=== PATIENT | male | born 1950 | race American Indian/Alaskan Native ===

== ENCOUNTER 2017-01-12 13:08 | Emergency (ER) | payer OTHER, MEDICAID ==
--- NOTE | 2017-01-12 13:37 | EDPHY ---
H & P Time Seen by Provider: 01/12/17 13:23 HPI/ROS: HPI Cough, sinus pressure and sinus congestion. 66-year-old male, currently homeless, heavy smoker, history of sinus surgery, presents to the emergency department complaining of a cough, productive of a clear phlegm times 2-3 days, and maxillary sinus pressure, greater on the left than the right as well as a sore throat, worse with cough. He also complains of nasal congestion and rhinorrhea. No fever. Denies other complaints. ROS: Constitutional: No fever, no chills. No weakness. Eyes: No discharge. No changes in vision. ENT: As above. Respiratory: As above. No shortness of breath. Cardiac: No chest pain, no palpitations. Gastrointestinal: No abdominal pain, no vomiting, no diarrhea. Genitourinary: No hematuria. No dysuria or increased frequency with urination. Musculoskeletal: No back pain. No neck pain. No myalgias or arthralgias. Skin: No rashes. Neurological: No headache. No focal weakness or altered sensation. Past medical history: Heavy smoker. Bronchitis. Sinus surgery. Social history: As above. Here by himself. Physical Exam: General Appearance: Alert, no distress. This patient is responding to questions appropriately and in full sentences. This patient appears well- hydrated and well-nourished. No voice changes. Eyes: Pupils equal and round no pallor or injection. No lid edema, erythema or injection. ENT, Mouth: Mucous membranes are moist. Mild diffuse pharyngeal erythema. No edema or swelling. No asymmetry suggestive of abscess. No exudates. Some pressure and discomfort with palpation over the maxillary sinuses. No facial soft tissue swelling, erythema or warmth. No stridor on auscultation of his neck. Respiratory: There are no retractions, lungs are clear to auscultation with good air movement bilaterally. Intermittent wet sounding cough. No tachypnea. Cardiovascular: Regular rate and rhythm. No murmur. Neurological: Motor sensory function is grossly intact. Cranial nerves are normal. Gait is normal. Skin: Warm and dry, no rashes. Musculoskeletal: Neck is supple and nontender. No lymphadenopathy. Extremities are symmetrical. All joints range without pain or impingement. Psychiatric: No agitation. No depression. Database: EKG: Imaging: Chest x-ray PA and lateral; the cardiac mediastinal silhouette is unremarkable. No evidence of infiltrate or pneumothorax. Mild to moderate bronchitis. No acute cardiopulmonary disease process noted. Interpreted by me. Procedures: Emergency department course: Vital signs reviewed, chest x-ray obtained. 2:00 p.m., patient re-evaluated. Resting comfortably at this time. Watching TV. Results of chest x-ray discussed with him. Plan will be to prescribe him azithromycin. He was given 500 mg of this in the emergency department. This will cover both his bronchitis and his sinusitis for potential bacterial sources. He is to follow up with his primary care physician on Friday who is in this building. He stated he would be able to do this. Return to emergency department precautions were discussed with him. All of his questions were answered. He was discharged in good condition. Differential Diagnosis: The differential diagnosis on this patient includes but is not limited to bronchitis, sinusitis, viral upper respiratory infection. This represents a partial list of diagnoses considered. These considerations are based on history , physical exam, past history, reassessment and diagnostic testing. Smoking Status: Heavy smoker Constitutional: Initial Vital Signs Temperature (C) 37.2 C 01/12/17 13:35 Heart Rate 92 01/12/17 13:35 Respiratory Rate 18 01/12/17 13:35 Blood Pressure 157/93 H 01/12/17 13:35 O2 Sat (%) 90 L 01/12/17 13:35 O2 Delivery Mode Room Air Allergies/Adverse Reactions: No Known Allergies Allergy (Verified 01/12/17 13:33) Home Medications: Medication Instructions Recorded Nitroglycerin [Nitrostat 0.4 mg 0.4 mg SL PRN PRN 07/17/14 (RX)] Furosemide [Lasix] 20 mg PO BID #30 tab 10/21/15 AZITHROMYCIN [Z-PACK] 250 mg PO DAILY #6 tab 04/15/16 Albuterol Sulfate [PROVENTIL HFA] 6.7 gm IH Q4-6PRN PRN #1 hfa.aer.ad 04/15/16 Fluticasone Nasal [Flonase Nasal 1 sprays NASAL DAILY #1 mdi 04/15/16 [place] (RX)] levOFLOXACIN [levAQUIN (*)] 750 mg PO DAILY #5 tab 04/22/16 Azithromycin [Zithromax] 250 mg PO DAILY #6 tab 01/12/17 Medical Decision Making - Diagnostics Imaging Results: Imaging Impressions Chest X-Ray 01/12/17 13:25 Impression: Moderate bronchitis. No other findings for acute cardiopulmonary abnormality. Departure - Departure Disposition: Home, Routine, Self-Care Clinical Impression: Bronchitis, Sinusitis Condition: Good Instructions: Acute Bronchitis (ED), Sinusitis (ED) Additional Instructions: Read and follow provided instructions. Follow-up with your primary care physician as discussed on Friday for re- evaluation and to help you fill your prescription for azithromycin if needed. Take medication as prescribed through entire course of treatment. Albuterol meter dose inhaler: 1-2 puffs every 2-4 hours as needed for cough and shortness of breath. Return to the emergency department for worsening cough, difficulty breathing, fever or other serious concerns. Referrals: Eulalia Stevens MD [Primary Care Provider] - As per Instructions Prescriptions: Azithromycin [Zithromax] 250 mg PO DAILY #6 tab
[2017-01-12 13:39] VITALS: PULSE 92; RESP 18; TEMP 99; O2SAT 90
[2017-01-12] MEDS ORDERED: AZITHROMYCIN 250 MG TAB PO ONE ×2 (14:05→14:10)
[2017-01-12 18:29] VITALS: BP 150/92
== END 2017-01-12 16:08 | disposition home or self-care (01) ==
LOC: CIMAGING 13:08 → CED 16:08
DX: J20.9 Acute bronchitis, unspecified (principal); J32.9 Chronic sinusitis, unspecified; F17.200 Nicotine dependence, unspecified, uncomplicated
CPT/HCPCS: 71020-PO

== ENCOUNTER 2017-01-14 11:12 | Emergency (ER) | payer OTHER, MEDICAID ==
[2017-01-14 11:22] VITALS: BP 141/102; PULSE 85; RESP 16; TEMP 97.7; O2SAT 92
--- NOTE | 2017-01-14 11:39 | EDPHY ---
H & P Time Seen by Provider: 01/14/17 11:25 HPI/ROS: CHIEF COMPLAINT: "You should know what is wrong. Them pills ain't working" HISTORY OF PRESENT ILLNESS: Patient is a 66-year-old male who presents emergency department with ongoing cough. He was seen in the emergency department on 01/12/2017. He was diagnosed with bronchitis. He was given azithromycin. He states that antibiotics are not working. He continues to have a cough. It is productive of white sputum. He is not sure if he has had a fever. No chills. No chest pain. No nausea or vomiting. Patient is also concerned that he has a sinus infection. He describes sinus congestion. REVIEW OF SYSTEMS: My complete review of systems is negative except as mentioned in the HPI. Past Medical/Surgical History: Includes pneumonia, bronchitis, hypertension, acute AL, COPD, anxiety Past surgical history: Includes hernia repair, appendectomy, facial surgery, plastic surgery, Social history: The patient continues to smoke. Patient is homeless. Smoking Status: Heavy smoker Physical Exam: 36.5, 141/102, 85, 16, 92% on room air GENERAL: No acute distress, alert. HEENT: Eyes normal to inspection, normal pharynx, no signs of dehydration. NECK: No thyromegaly, no lymphadenopathy, supple. RESPIRATORY: Coarse breath sounds bilaterally. No rales or rhonchi. No wheezing. No accessory muscle use. CVS: Regular rate and rhythm, no rubs, murmurs, or gallops. ABDOMEN: Soft, nontender, nondistended, no organomegaly. BACK: Normal to inspection, no CVA tenderness. SKIN: [place]. No rash, warm, dry. No pallor. EXTREMITIES: No pedal edema, no calf tenderness, no Homans sign or cords, no joint swelling. NEURO/PSYCH: Alert and oriented, normal mood and affect, normal motor sensory exam. Constitutional: Initial Vital Signs Temperature (C) 36.5 C 01/14/17 11:15 Heart Rate 85 01/14/17 11:15 Respiratory Rate 16 01/14/17 11:15 Blood Pressure 141/102 H 01/14/17 11:15 O2 Sat (%) 92 01/14/17 11:15 O2 Delivery Mode Room Air Allergies/Adverse Reactions: No Known Allergies Allergy (Verified 01/14/17 11:15) Home Medications: Medication Instructions Recorded Nitroglycerin [Nitrostat 0.4 mg 0.4 mg SL PRN PRN 07/17/14 (RX)] Furosemide [Lasix] 20 mg PO BID #30 tab 10/21/15 AZITHROMYCIN [Z-PACK] 250 mg PO DAILY #6 tab 04/15/16 Albuterol Sulfate [PROVENTIL HFA] 6.7 gm IH Q4-6PRN PRN #1 hfa.aer.ad 04/15/16 Fluticasone Nasal [Flonase Nasal 1 sprays NASAL DAILY #1 mdi 04/15/16 [place] (RX)] Azithromycin [Zithromax] 250 mg PO DAILY #6 tab 01/12/17 Amoxicillin/Clavulanate Pot 875 mg PO BID 10 Days 01/14/17 [Augmentin 875 mg tab] predniSONE 20 mg PO DAILY 4 Days 01/14/17 Medical Decision Making - Diagnostics Imaging Results: Imaging Impressions Chest X-Ray 01/14/17 11:33 Impression: Progressive prominence of central pulmonary vessels suggesting acute congestive failure.. ED Course/Re-evaluation: I discussed the plan with the patient. I answered all his questions. He will have a repeat chest x-ray. Chest x-ray: Please refer the dictated report by Dr. Price. He reviewed noted there is mild increased vascular is a sutton potentially representing CHF. The patient has no pedal edema no signs of fluid overload on exam. He has had no chest pain. I discussed the result with the patient. Patient will be given a prescription for prednisone, albuterol and Augmentin. Prior to leaving he was given a dose of Augmentin and prednisone 60 mg orally. He was given albuterol inhaler. Differential Diagnosis: My differential includes but is not limited to bronchitis, sinusitis, pneumonia , empyema, COPD exacerbation, ACS bacteremia, sepsis Departure - Departure Disposition: Home, Routine, Self-Care Clinical Impression: Chronic obstructive pulmonary disease with acute exacerbation Acute bronchitis Qualifiers: Bronchitis organism: other organism Qualified Code(s): J20.8 - Acute bronchitis due to other specified organisms Condition: Good Instructions: Acute Bronchitis (ED), COPD (Chronic Obstructive Pulmonary Disease) (ED) Additional Instructions: Return with increasing shortness of breath, cough, fever or any other concerns. Take your entire course of antibiotics. Referrals: [facility] [Cl[facility]] - 2-3 days, if not improved Christ Stein MD [Medical Doctor] - 5-7 days, if not improved Prescriptions: Amoxicillin/Clavulanate Pot [Augmentin 875 mg tab] 875 mg PO BID 10 Days predniSONE 20 mg PO DAILY 4 Days
[2017-01-14] MEDS ORDERED: AMOXICILLIN/CLAVULANATE POT 875/125 MG TAB PO ONE (11:52)
[2017-01-14] MEDS ORDERED: predniSONE 20 MG TAB PO ONE (11:53)
== END 2017-01-14 12:07 | disposition home or self-care (01) ==
LOC: CED 11:12
DX: J44.1 Chronic obstructive pulmonary disease with (acute) exacerbation (principal); F17.200 Nicotine dependence, unspecified, uncomplicated; I10 Essential (primary) hypertension; I25.2 Old myocardial infarction; J20.8 Acute bronchitis due to other specified organisms
CPT/HCPCS: 71020-PO

== ENCOUNTER → 2017-01-30 | Outpatient (CLI) | payer OTHER, MEDICAID | LOC: CIMAGING 10:15 | PROVIDERS: ATTEND Internal Medicine | DX: J32.8 Other chronic sinusitis (principal); Z98.890 Other specified postprocedural states | CPT/HCPCS: 70450-PO ==

== ENCOUNTER → 2017-03-07 | Outpatient (CLI) | payer OTHER, MEDICAID | LOC: BHCLAF 10:45 | PROVIDERS: ATTEND Internal Medicine Cardiovascular Disease | DX: R01.1 Cardiac murmur, unspecified (principal); I50.9 Heart failure, unspecified | CPT/HCPCS: 93306-PO ==

== ENCOUNTER 2017-05-21 06:17 | Inpatient (IN) | payer OTHER, MEDICAID ==
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
--- NOTE | 2017-05-21 07:23 | CPEKG ---
Heart Rate: 91 RR Interval: 659 P-R Interval: 144 QRSD Interval: 106 QT Interval: 400 QTC Interval: 493 P [place]: 73 QRS [place]: 55 T Wave [place]: -78 EKG Severity - ABNORMAL ECG - EKG Impression: SINUS RHYTHM EKG Impression: MULTIFORM VENTRICULAR PREMATURE COMPLEXES EKG Impression: BIATRIAL ABNORMALITY EKG Impression: BORDERLINE PROLONGED QT INTERVAL EKG Impression: No significant change from October 20, 2015 EKG Impression: Diffuse ST-T wave abnormalities EKG Impression: Incomplete left bundle branch block Electronically Signed By: Christ Gonzalez 23-May-2017 10:51:12
--- NOTE | 2017-05-21 07:23 | CPEKG ---
Heart Rate: 91 RR Interval: 659 P-R Interval: 144 QRSD Interval: 106 QT Interval: 400 QTC Interval: 493 P [place]: 73 QRS [place]: 55 T Wave [place]: -78 EKG Severity - ABNORMAL ECG - EKG Impression: SINUS RHYTHM EKG Impression: MULTIFORM VENTRICULAR PREMATURE COMPLEXES EKG Impression: BIATRIAL ABNORMALITY EKG Impression: BORDERLINE PROLONGED QT INTERVAL EKG Impression: No significant change from October 20, 2015 EKG Impression: Diffuse ST-T wave abnormalities EKG Impression: Incomplete left bundle branch block Electronically Signed By: Christ Gonzalez 23-May-2017 10:51:12
[2017-05-21 07:40] LABS: PLATELET COUNT 203 10^3/uL (150-400)
[2017-05-21] MEDS ORDERED: ASPIRIN 81 MG CHEWABLE TAB PO ONE (08:33)
[2017-05-21] MEDS ORDERED: ALBUTEROL 3 ML DEYVIAL IH PRN (13:02)
[2017-05-21] MEDS ORDERED: LORazepam 0.5 MG TAB PO PRN (13:02)
[2017-05-21] MEDS ORDERED: LORazepam 2 MG/ML INJ IVP PRN (13:02)
[2017-05-21] MEDS ORDERED: ACETAMINOPHEN 325 MG TAB PO PRN (13:02)
[2017-05-21] MEDS ORDERED: METOCLOPRAMIDE 10 MG TAB PO PRN (13:02)
[2017-05-21] MEDS ORDERED: HYDROCODONE/APAP 5/325 TAB PO PRN (13:02)
[2017-05-21] MEDS ORDERED: METOCLOPRAMIDE 10 MG/2 ML VIAL IVP PRN (13:02)
[2017-05-21] MEDS ORDERED: FUROSEMIDE 40 MG/4 ML VIAL IVP ONE (13:05)
--- NOTE | 2017-05-21 13:30 | PDGENHP ---
History and Physical - Chief Complaint SOB - History of Present Illness 67 yo male p/w Dyspnea and orthopnea x 4 days. Has a hx of CAD, COPD, ?CHF, chronic ETOH. No CP. NO palpitations. NO fever. No cough. NO sputum. No leg swelling. He tooks Lasix yesterday with mild improvement. He does not use supplemental O2 at baseline. CXR shows pulm vascular congestion (personally reviewed) Trop slightly elevated BNP elevated EKG personally reviewed with no acute ischemic changes PMHx: COPD, ?CHF, alcoholism, Anxiety, HTN PmHx: hernia repair Soc Hx: daily Tobacco use, daily ETOH use, daily marijuana use. Lives in a VAN History Information - Allergies/Home Medication List Allergies/Adverse Reactions: No Known Allergies Allergy (Verified 01/14/17 11:15) Home Medications: Nitroglycerin [Nitrostat 0.4 mg (RX)] 0.4 mg SL PRN PRN 07/17/14 [Last Taken Unknown] Sleeping Tablet 05/21/17 [Last Taken Unknown] I have personally reviewed and updated: family history, medical history - Social History Smoking Status: Heavy smoker Alcohol Use: None Drug Use: None Review of Systems Review of Systems: ROS: 10pt was reviewed & negative except for what was stated in HPI & below Physical Exam Physical Exam: Temp Pulse Resp BP Pulse Ox 36.6 C 99 99 H 138/99 H 95 05/21/17 11:48 05/21/17 12:34 05/21/17 12:34 05/21/17 12:34 05/21/17 12:34 O2 (L/minute) 2 Constitutional: no apparent distress, appears nourished Eyes: PERRL, EOMI Ears, Nose, Mouth, Throat: moist mucous membranes Cardiovascular: regular rate and rhythym, edema (trace), No JVD Respiratory: inspiratory crackles Gastrointestinal: normoactive bowel sounds, soft, non-tender abdomen Skin: warm Neurologic: AAOx3, CN II-XII Intact Psychiatric: interacting appropriately, not anxious, not encephalopathic, thought process linear Lab Data & Imaging Review 05/21/17 07:30 05/21/17 07:30 WBC 8.13 10^3/uL (3.80-9.50) 05/21/17 07:30 RBC 5.48 10^6/uL (4.40-6.38) 05/21/17 07:30 Hgb 17.6 g/dL (13.7-17.5) H 05/21/17 07:30 Hct 51.8 % (40.0-51.0) H 05/21/17 07:30 MCV 94.5 fL (81.5-99.8) 05/21/17 07:30 MCH 32.1 pg (27.9-34.1) 05/21/17 07:30 MCHC 34.0 g/dL (32.4-36.7) 05/21/17 07:30 RDW 13.4 % (11.5-15.2) 05/21/17 07:30 Plt Count 203 10^3/uL (150-400) 05/21/17 07:30 MPV 10.1 fL (8.7-11.7) 05/21/17 07:30 Neut % (Auto) 66.3 % (39.3-74.2) 05/21/17 07:30 Lymph % (Auto) 22.0 % (15.0-45.0) 05/21/17 07:30 [place] % (Auto) 9.0 % (4.5-13.0) 05/21/17 07:30 Eos % (Auto) 2.0 % (0.6-7.6) 05/21/17 07:30 Baso % (Auto) 0.5 % (0.3-1.7) 05/21/17 07:30 Nucleat RBC Rel Count 0.0 % (0.0-0.2) 05/21/17 07:30 Absolute Neuts (auto) 5.39 10^3/uL (1.70-6.50) 05/21/17 07:30 Absolute Lymphs (auto) 1.79 10^3/uL (1.00-3.00) 05/21/17 07:30 Absolute Monos (auto) 0.73 10^3/uL (0.30-0.80) 05/21/17 07:30 Absolute Eos (auto) 0.16 10^3/uL (0.03-0.40) 05/21/17 07:30 Absolute Basos (auto) 0.04 10^3/uL (0.02-0.10) 05/21/17 07:30 Absolute Nucleated RBC 0.00 10^3/uL (0-0.01) 05/21/17 07:30 Immature Gran % 0.2 % (0.0-1.1) 05/21/17 07:30 Immature Gran # 0.02 10^3/uL (0.00-0.10) 05/21/17 07:30 Sodium 143 mEq/L (134-144) 05/21/17 07:30 Potassium 3.7 mEq/L (3.5-5.2) 05/21/17 07:30 Chloride 102 mEq/L (97-110) 05/21/17 07:30 Carbon Dioxide 30 mEq/l (22-31) 05/21/17 07:30 Anion Gap 11 mEq/L (8-16) 05/21/17 07:30 BUN 17 mg/dL (7-23) 05/21/17 07:30 Creatinine 1.1 mg/dL (0.7-1.3) 05/21/17 07:30 Estimated GFR > 60 05/21/17 07:30 Glucose 101 mg/dL (70-100) H 05/21/17 07:30 Calcium 9.3 mg/dL (8.5-10.4) 05/21/17 07:30 Magnesium 1.7 mg/dL (1.6-2.3) 05/21/17 07:30 Total Bilirubin 1.6 mg/dL (0.1-1.4) H 05/21/17 07:30 Conjugated Bilirubin 0.5 mg/dL (0.0-0.5) 05/21/17 07:30 Unconjugated Bilirubin 1.1 mg/dL (0.0-1.1) 05/21/17 07:30 AST 22 IU/L (17-59) 05/21/17 07:30 ALT 33 IU/L (21-72) 05/21/17 07:30 Alkaline Phosphatase 58 IU/L (38-126) 05/21/17 07:30 Troponin I 0.057 ng/mL (0.000-0.034) H 05/21/17 07:30 NT-Pro-B Natriuret Pep 2220 pg/mL (0-125) H 05/21/17 07:30 Total Protein 6.5 g/dL (6.3-8.2) 05/21/17 07:30 Albumin 4.0 g/dL (3.5-5.0) 05/21/17 07:30 Assessment & Plan Assessment: #CHF exacerbation, unclear if systolic vs diastolic #Dyspnea #Elevated troponin, EKG with no acute changes #COPD, likely not in exacerbation #Alcoholism, last drink 4 days ago, not in active WD #Prolonged QT. Plan: -Admit observation -Lasix -serial trop -TTE -EKG in a.m. -aspirin -check influenza (he has not been vaccinated) -home meds once home med list is available -PT/OT -SCD for DVT proph -Full Code
[2017-05-21] MEDS: THIAMINE HCL 100 MG TAB PO SCH (13:50)
[2017-05-21] MEDS: FOLIC ACID 1 MG TAB PO SCH (13:50)
--- NOTE | 2017-05-21 16:14 | ECHO ---
[email or web address] [address] [address] Main: [phone] Fax: Transthoracic Echocardiogram Name: TONIO LINK MR#: [id number] Study Date: 05/21/2017 Study Time: 02:16 PM Date of : 1950 Age: 67 year(s) Height: 182.9 cm (72 in.) Weight: 84.37 kg (186 lb.) BSA: 2.07 m2 Gender: Male Examination: Echo Indication: Question CHF/old [place], previous echo done at [facility] 03-13 Image Quality: Contrast: Requested by: Everett Edward BP: 138 mmHg/99 mmHg Heart Rate: Rhythm: Indication: Question CHF/old [place], previous echo done at [facility] 03-13 Procedure Staff [employer] Operation: Thu Carey Reading Physician: Raymond Zhao Requesting Provider: Conclusions: Mildly reduced systolic LV function. The ejection fraction is estimated to be 40-45 %. LV basal inferolateral, inferoseptal and entire inferior martinez are akinetic.. The left atrium is moderately to severely dilated. The right atrium is borderline dilated. Mild mitral annular calcification. Mild mitral valve leaflet calcification is present. Moderate to severe mitral regurgitation. Mild tricuspid regurgitation is present. RVSP is 58-63mmHG.. In comparison to prior echocardiogram from 03-07-17 there was moderate mitral regurgitation noted and mild tricuspid regurgitation. This study has some progression of the mitral valve pathology. Recommendations for patient to be seen by cardiology given the degree of progressive pathology noted. Measurements: Chambers Valvular Assessment AV/MV Valvular Assessment TV/PV Normal Normal Normal Name Value Range Name Value Range Name Value Range IVSd (2D): 1.0 cm (0.6 cm-1.1 AV meanP mmHg ( - ) TR Vmax: 3.63 mm/s ( - ) cm) AMARA (VTI): 2.1 cm ( - ) TR PGmax: 53 mmHg ( - ) LVDd (2D): 5.4 cm (4.2 cm-5.9 MV meanP mmHg ( - ) syst. PAP: 63 mmHg ( - ) cm) MVA (Vmax): 1.1 m/s ( - ) LVDs (2D): 3.9 cm (2.1 cm-4 cm) LVPWd (2D): 0.9 cm (0.6 cm-1 cm) LVOTd 2.0 cm 2.0 cm mm LVEF (MOD4): 45 % (>=55 %) Patient: TONIO LINK Study Date: 05/21/2017 Page 1 of 2 02:16 PM EF Range: 40-45 % Continued Measurements: Chambers Valvular Assessment AV/MV Valvular Assessment TV/PV Name Value Name Value Name Value LADs: 4.8 cm MV Annulus: 3.2 cm CVP (est.): 10 mmHg LADs Lon.3 cm MV VTI: 31.40 cm LA Area: 30.0 cm2 MR Vena Contracta: 0.7 cm MR ERO: 0.350 cm2 MR PISA radius: 8 mm MR Reg. Volume: 36 ml MR Reg. Fraction: 14 % Findings: Left Ventricle: Normal size left ventricle. Mildly reduced systolic LV function. The ejection fraction is estimated to be 40-45 %. LV basal inferolateral, inferoseptal and entire inferior martinez are akinetic.. Right Ventricle: Normal size right ventricle. Left Atrium: The left atrium is moderately to severely dilated. Right Atrium: The right atrium is borderline dilated. Mitral Valve: Mild mitral annular calcification. Mild mitral valve leaflet calcification is present. Moderate to severe mitral regurgitation. Mitral valve leaflets appear to be coapt completely.. Aortic Valve: There is no aortic valve regurgitation. The aortic valve opens well.. Tricuspid Valve: The tricuspid valve appears normal. Mild tricuspid regurgitation is present. The pulmonary artery pressure is mildly increased. RVSP is 58-63mmHG.. Pulmonic Valve: Pulmonary valve not well visualized. There is no pulmonic regurgitation seen. Pericardium: No pericardial effusion. (No Signature Object) Patient: TONIO LINK Study Date: 05/21/2017 Page 2 of 2 02:16 PM [id number]
--- NOTE | 2017-05-21 16:14 | ECHO ---
[email or web address] [address] [address] Main: [phone] Fax: Transthoracic Echocardiogram Name: TONIO LINK MR#: [id number] Study Date: 05/21/2017 Study Time: 02:16 PM Date of : 1950 Age: 67 year(s) Height: 182.9 cm (72 in.) Weight: 84.37 kg (186 lb.) BSA: 2.07 m2 Gender: Male Examination: Echo Indication: Question CHF/old [place], previous echo done at [facility] 03-13 Image Quality: Contrast: Requested by: Everett Edward BP: 138 mmHg/99 mmHg Heart Rate: Rhythm: Indication: Question CHF/old [place], previous echo done at [facility] 03-13 Procedure Staff [employer] Instructor: Thu Carey Reading Physician: Raymond Zhao Requesting Provider: Conclusions: Mildly reduced systolic LV function. The ejection fraction is estimated to be 40-45 %. LV basal inferolateral, inferoseptal and entire inferior martinez are akinetic.. The left atrium is moderately to severely dilated. The right atrium is borderline dilated. Mild mitral annular calcification. Mild mitral valve leaflet calcification is present. Moderate to severe mitral regurgitation. Mild tricuspid regurgitation is present. RVSP is 58-63mmHG.. In comparison to prior echocardiogram from 03-07-17 there was moderate mitral regurgitation noted and mild tricuspid regurgitation. This study has some progression of the mitral valve pathology. Recommendations for patient to be seen by cardiology given the degree of progressive pathology noted. Measurements: Chambers Valvular Assessment AV/MV Valvular Assessment TV/PV Normal Normal Normal Name Value Range Name Value Range Name Value Range IVSd (2D): 1.0 cm (0.6 cm-1.1 AV meanP mmHg ( - ) TR Vmax: 3.63 mm/s ( - ) cm) AMARA (VTI): 2.1 cm ( - ) TR PGmax: 53 mmHg ( - ) LVDd (2D): 5.4 cm (4.2 cm-5.9 MV meanP mmHg ( - ) syst. PAP: 63 mmHg ( - ) cm) MVA (Vmax): 1.1 m/s ( - ) LVDs (2D): 3.9 cm (2.1 cm-4 cm) LVPWd (2D): 0.9 cm (0.6 cm-1 cm) LVOTd 2.0 cm 2.0 cm mm LVEF (MOD4): 45 % (>=55 %) Patient: TONIO LINK Study Date: 05/21/2017 Page 1 of 2 02:16 PM EF Range: 40-45 % Continued Measurements: Chambers Valvular Assessment AV/MV Valvular Assessment TV/PV Name Value Name Value Name Value LADs: 4.8 cm MV Annulus: 3.2 cm CVP (est.): 10 mmHg LADs Lon.3 cm MV VTI: 31.40 cm LA Area: 30.0 cm2 MR Vena Contracta: 0.7 cm MR ERO: 0.350 cm2 MR PISA radius: 8 mm MR Reg. Volume: 36 ml MR Reg. Fraction: 14 % Findings: Left Ventricle: Normal size left ventricle. Mildly reduced systolic LV function. The ejection fraction is estimated to be 40-45 %. LV basal inferolateral, inferoseptal and entire inferior martinez are akinetic.. Right Ventricle: Normal size right ventricle. Left Atrium: The left atrium is moderately to severely dilated. Right Atrium: The right atrium is borderline dilated. Mitral Valve: Mild mitral annular calcification. Mild mitral valve leaflet calcification is present. Moderate to severe mitral regurgitation. Mitral valve leaflets appear to be coapt completely.. Aortic Valve: There is no aortic valve regurgitation. The aortic valve opens well.. Tricuspid Valve: The tricuspid valve appears normal. Mild tricuspid regurgitation is present. The pulmonary artery pressure is mildly increased. RVSP is 58-63mmHG.. Pulmonic Valve: Pulmonary valve not well visualized. There is no pulmonic regurgitation seen. Pericardium: No pericardial effusion. (No Signature Object) Patient: TONIO LINK Study Date: 05/21/2017 Page 2 of 2 02:16 PM [id number]
--- NOTE | 2017-05-21 16:14 | ECHO ---
[email or web address] [address] [address] Main: [phone] Fax: Transthoracic Echocardiogram Name: TONIO LINK MR#: [id number] Study Date: 05/21/2017 Study Time: 02:16 PM Date of : 1950 Age: 67 year(s) Height: 182.9 cm (72 in.) Weight: 84.37 kg (186 lb.) BSA: 2.07 m2 Gender: Male Examination: Echo Indication: Question CHF/old [place], previous echo done at [facility] 03-13 Image Quality: Contrast: Requested by: Everett Edward BP: 138 mmHg/99 mmHg Heart Rate: Rhythm: Indication: Question CHF/old [place], previous echo done at [facility] 03-13 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 The ejection fraction is estimated to be 40-45 %. LV basal inferolateral, inferoseptal and entire inferior martinez are akinetic.. The left atrium is moderately to severely dilated. The right atrium is borderline dilated. Mild mitral annular calcification. Mild mitral valve leaflet calcification is present. Moderate to severe mitral regurgitation. Mild tricuspid regurgitation is present. RVSP is 58-63mmHG.. In comparison to prior echocardiogram from 03-07-17 there was moderate mitral regurgitation noted and mild tricuspid regurgitation. This study has some progression of the mitral valve pathology. Recommendations for patient to be seen by cardiology given the degree of progressive pathology noted. Measurements: Chambers Valvular Assessment AV/MV Valvular Assessment TV/PV Normal Normal Normal Name Value Range Name Value Range Name Value Range IVSd (2D): 1.0 cm (0.6 cm-1.1 AV meanP mmHg ( - ) TR Vmax: 3.63 mm/s ( - ) cm) AMARA (VTI): 2.1 cm ( - ) TR PGmax: 53 mmHg ( - ) LVDd (2D): 5.4 cm (4.2 cm-5.9 MV meanP mmHg ( - ) syst. PAP: 63 mmHg ( - ) cm) MVA (Vmax): 1.1 m/s ( - ) LVDs (2D): 3.9 cm (2.1 cm-4 cm) LVPWd (2D): 0.9 cm (0.6 cm-1 cm) LVOTd 2.0 cm 2.0 cm mm LVEF (MOD4): 45 % (>=55 %) Patient: TONIO LINK Study Date: 05/21/2017 Page 1 of 2 02:16 PM EF Range: 40-45 % Continued Measurements: Chambers Valvular Assessment AV/MV Valvular Assessment TV/PV Name Value Name Value Name Value LADs: 4.8 cm MV Annulus: 3.2 cm CVP (est.): 10 mmHg LADs Lon.3 cm MV VTI: 31.40 cm LA Area: 30.0 cm2 MR Vena Contracta: 0.7 cm MR ERO: 0.350 cm2 MR PISA radius: 8 mm MR Reg. Volume: 36 ml MR Reg. Fraction: 14 % Findings: Left Ventricle: Normal size left ventricle. Mildly reduced systolic LV function. The ejection fraction is estimated to be 40-45 %. LV basal inferolateral, inferoseptal and entire inferior martinez are akinetic.. Right Ventricle: Normal size right ventricle. Left Atrium: The left atrium is moderately to severely dilated. Right Atrium: The right atrium is borderline dilated. Mitral Valve: Mild mitral annular calcification. Mild mitral valve leaflet calcification is present. Moderate to severe mitral regurgitation. Mitral valve leaflets appear to be coapt completely.. Aortic Valve: There is no aortic valve regurgitation. The aortic valve opens well.. Tricuspid Valve: The tricuspid valve appears normal. Mild tricuspid regurgitation is present. The pulmonary artery pressure is mildly increased. RVSP is 58-63mmHG.. Pulmonic Valve: Pulmonary valve not well visualized. There is no pulmonic regurgitation seen. Pericardium: No pericardial effusion. (No Signature Object) Patient: TONIO LINK Study Date: 05/21/2017 Page 2 of 2 02:16 PM [id number]
[2017-05-21] MEDS ORDERED: ASPIRIN 325 MG TAB PO PRN (18:17)
[2017-05-21] MEDS ORDERED: ALBUTEROL 200 PUFFS/18 GM MDI IH PRN (18:17)
[2017-05-21] MEDS ORDERED: NITROGLYCERIN 0.4 MG BTL SL PRN (18:17)
[2017-05-21] MEDS ORDERED: FUROSEMIDE 40 MG TAB PO SCH (21:00)
[2017-05-21] MEDS: NICOTINE 21 MG/24 HR PATCH TD PRN (21:38)
[2017-05-22] MEDS: ASPIRIN 81 MG CHEWABLE TAB PO SCH (07:44)
[2017-05-22] MEDS: THIAMINE HCL 100 MG TAB PO SCH (07:44)
[2017-05-22] MEDS: FOLIC ACID 1 MG TAB PO SCH (07:44)
[2017-05-22] MEDS: MULTIVITAMINS 1 EACH TAB PO SCH (07:44)
[2017-05-22] MEDS: LISINOPRIL 40 MG TAB PO SCH (07:44)
--- NOTE | 2017-05-22 09:09 | CPEKG ---
Heart Rate: 85 RR Interval: 706 P-R Interval: 142 QRSD Interval: 104 QT Interval: 380 QTC Interval: 452 P [place]: 83 QRS [place]: 86 T Wave [place]: -62 EKG Severity - ABNORMAL ECG - EKG Impression: SINUS ARRHYTHMIA-- New since May 21, 2017 EKG Impression: MULTIFORM VENTRICULAR PREMATURE COMPLEXES EKG Impression: BRIANA, CONSIDER BIATRIAL ABNORMALITIES EKG Impression: NONSPECIFIC REPOL ABNORMALITY, DIFFUSE LEADS EKG Impression: BORDERLINE PROLONGED QT INTERVAL Electronically Signed By: Christ Gonzalez 22-May-2017 09:32:35
[2017-05-22 09:28] LABS: PLATELET COUNT 190 10^3/uL (150-400)
[2017-05-22] MEDS ORDERED: PROTOCOL MAGNESIUM 1 DOSE IV PRN (10:46)
[2017-05-22] MEDS ORDERED: PROTOCOL POTASSIUM 1 DOSE MISC PRN (10:46)
--- NOTE | 2017-05-22 10:50 | HOSPPROG ---
Hospitalist Progress Note Assessment/Plan: 67 yo male with hx of CAD, CHF, and alcoholism admitted for CHF-E. Volume and resp status is better TTE c/w significant worsening of valve disease Trops mildly elevated Plan for Card eval today. Provide additional Lasix IV today #CHF-E, systolic #Valvular disease with progression #elevated troponin #chronic alcoholism, last drink 5 days ago, not actively withdrawin #hypokalemia, replace PRN. Will also provide additional at this time as he will get further Lasix now #tobacco abuse disorder: he does not want nicotine replacement. Tobacco cessation counseling provided. SCD's Full Code Subjective: Feels better, Less SOB. Orthopnea is better. No CP Objective: Vital Signs Temp Pulse Resp BP Pulse Ox 36.7 C 86 16 139/88 H 92 05/22/17 10:43 05/22/17 10:43 05/22/17 10:43 05/22/17 10:43 05/22/17 10:43 Laboratory Results 05/22/17 08:43 05/22/17 08:43 05/21/17 05/22/17 05/23/17 05:59 05:59 05:59 Intake Total 1200 Balance 1200 - Physical Exam Constitutional: no apparent distress, appears nourished Eyes: PERRL, EOMI Ears, Nose, Mouth, Throat: moist mucous membranes, hearing normal Cardiovascular: regular rate and rhythym Respiratory: reduced air movement Gastrointestinal: normoactive bowel sounds Skin: warm Musculoskeletal: full muscle strength Neurologic: AAOx3 Psychiatric: interacting appropriately, not anxious, not encephalopathic, No anxious ICD10 Worksheet Patient Problems: Problems Problem Status Onset Acute exacerbation of congestive heart failure Acute Dyspnea Acute Elevated troponin Acute Pulmonary vascular congestion Acute
[2017-05-22] MEDS ORDERED: FUROSEMIDE 20 MG/2 ML VIAL IVP ONE (10:52)
[2017-05-22] MEDS ORDERED: POTASSIUM CL 20 MEQ PKT PO SCH (11:00)
[2017-05-22] MEDS: POTASSIUM CL 20 MEQ PKT PO SCH ×3 (11:36→16:57)
--- NOTE | 2017-05-22 14:48 | PDCARCONS ---
Cardiology Consult Reason for Consult: Abnormal echocardiogram Chief Complaint: dyspnea with fluid retention Requesting Physician: Hospitalist crew History of Present Illness: Patient is a 67 y/o male with history of CAD s/p angioplasty (no stent, per patient), with residual ischaemic CMP (uncertain what LVEF was post events, but with most recent echocardiogram, there is reduction in systolic function noted) , HTN, HLP, COPD, and substance abuse (tobacco, alcohol, and MMJ), who presented to [facility] with complaints of progressive shortness of breath and lower extremity swelling. ER note with patient voicing concerns about pneumonia and bronchitis. Hospitalist note with evolution in the symptoms reported ( clarification), and signs and symptoms more in the realm of congestive heart failure. No regular or routine cardiovascular follow up has been maintained. Patient is currently living out of his van. PCP with recent script for diuretics, which seemed to help with some of the symptoms noted. Dramatic improvement was only noted after admission to [facility] and more frequent diuretics were dosed. Today, the patient reports that he is feeling much better. No chest pains or pressure. No PND or orthopnea. Echocardiogram was performed, and given the abnormalities noted, this led to the cardiology consultation (the results are as noted below). Remainder of a 12 point review of systems was unremarkable History Information - Allergies/Home Medication List Allergies/Adverse Reactions: No Known Allergies Allergy (Verified 01/14/17 11:15) Home Medications: Nitroglycerin [Nitrostat 0.4 mg (RX)] 0.4 mg SL PRN PRN 07/17/14 [Last Taken Unknown] Albuterol [Proventil Inhaler HFA (*)] 1 - 2 puffs IH DAILY PRN 05/21/17 [Last Taken Unknown] Aspirin [Aspirin 325 mg (*)] 325 mg PO DAILY PRN 05/21/17 [Last Taken Unknown] Aspirin [Aspirin 81mg (*)] 81 mg PO DAILY PRN 05/21/17 [Last Taken Unknown] Furosemide [Lasix 40 MG (*)] 40 - 80 mg PO HS 05/21/17 [Last Taken 05/20/17 80mg ] Herbals/Supplements -Info Only 1 ea PO DAILY 05/21/17 [Last Taken Unknown] Lisinopril [Zestril 40 mg (*)] 40 mg PO DAILY 05/21/17 [Last Taken 05/20/17] I have personally reviewed and updated: family history, medical history, social history, surgical history Past Medical History: - Past Medical History coronary artery disease, CHF, hypertension, hyperlipidemia, myocardial infarction - Surgical History Reports: no pertinent surgical hx - Family History Positive for: non-pertinent - Social History Smoking Status: Heavy smoker Alcohol Use: Occasionally Drug Use: Marijuana Cardiac History - Cardiac History Past Cardiac History: CAD Cardiac Risk Factors: hypertension (>140/90), lipidemia, current cigarette smoker, age > 65, male Timing/Duration: Days Severity: moderate Severity Scale: 5 Location: substernal, abdomen Activities at Onset: activity Modifying Factors: improves with: oxygen, rest Associated Symptoms: shortness of breath, weakness BLANCA Risk Evaluation age greater or equal to 65: yes greater or equal to 3 CAD risk factors: yes known CAD(stenosis greater or eqaul to 50%): yes ASA use in past 7 days: yes severe angina(greater or equal to 2 episodes in 24hrs): no EKG ST changes greater or equal to 0.5mm: no positive cardiac marker: yes Total Score: 5 BLANCA Score: 26.2% risk Physical Exam Physical Exam: Temp Pulse Resp BP Pulse Ox 36.7 C 86 16 139/88 H 92 05/22/17 10:43 05/22/17 10:43 05/22/17 10:43 05/22/17 10:43 05/22/17 10:43 O2 (L/minute) 2 Constitutional: no apparent distress, appears nourished, not in pain Eyes: PERRL Ears, Nose, Mouth, Throat: moist mucous membranes Cardiovascular: regular rate and rhythym, systolic murmur, No JVD Peripheral Pulses: 2+: dorsalis-pedis (R), dorsalis-pedis (L) Respiratory: no respiratory distress, reduced air movement Gastrointestinal: normoactive bowel sounds Skin: warm, normal color, No rash Musculoskeletal: full muscle strength Neurologic: AAOx3, sensation intact bilaterally, CN II-XII Intact Psychiatric: interacting appropriately, not anxious, not encephalopathic, poor judgement Lab and Imaging 05/22/17 08:43 05/22/17 08:43 WBC 6.84 10^3/uL (3.80-9.50) 05/22/17 08:43 RBC 5.20 10^6/uL (4.40-6.38) 05/22/17 08:43 Hgb 16.7 g/dL (13.7-17.5) 05/22/17 08:43 Hct 48.9 % (40.0-51.0) 05/22/17 08:43 MCV 94.0 fL (81.5-99.8) 05/22/17 08:43 MCH 32.1 pg (27.9-34.1) 05/22/17 08:43 MCHC 34.2 g/dL (32.4-36.7) 05/22/17 08:43 RDW 13.2 % (11.5-15.2) 05/22/17 08:43 Plt Count 190 10^3/uL (150-400) 05/22/17 08:43 MPV 11.6 fL (8.7-11.7) 05/22/17 08:43 Neut % (Auto) 64.6 % (39.3-74.2) 05/22/17 08:43 Lymph % (Auto) 24.9 % (15.0-45.0) 05/22/17 08:43 [place] % (Auto) 7.6 % (4.5-13.0) 05/22/17 08:43 Eos % (Auto) 2.2 % (0.6-7.6) 05/22/17 08:43 Baso % (Auto) 0.4 % (0.3-1.7) 05/22/17 08:43 Nucleat RBC Rel Count 0.0 % (0.0-0.2) 05/22/17 08:43 Absolute Neuts (auto) 4.42 10^3/uL (1.70-6.50) 05/22/17 08:43 Absolute Lymphs (auto) 1.70 10^3/uL (1.00-3.00) 05/22/17 08:43 Absolute Monos (auto) 0.52 10^3/uL (0.30-0.80) 05/22/17 08:43 Absolute Eos (auto) 0.15 10^3/uL (0.03-0.40) 05/22/17 08:43 Absolute Basos (auto) 0.03 10^3/uL (0.02-0.10) 05/22/17 08:43 Absolute Nucleated RBC 0.00 10^3/uL (0-0.01) 05/22/17 08:43 Immature Gran % 0.3 % (0.0-1.1) 05/22/17 08:43 Immature Gran # 0.02 10^3/uL (0.00-0.10) 05/22/17 08:43 Sodium 143 mEq/L (134-144) 05/22/17 08:43 Potassium 3.1 mEq/L (3.5-5.2) L 05/22/17 08:43 Chloride 100 mEq/L (97-110) 05/22/17 08:43 Carbon Dioxide 29 mEq/l (22-31) 05/22/17 08:43 Anion Gap 14 mEq/L (8-16) 05/22/17 08:43 BUN 17 mg/dL (7-23) 05/22/17 08:43 Creatinine 0.9 mg/dL (0.7-1.3) 05/22/17 08:43 Estimated GFR > 60 05/22/17 08:43 Glucose 163 mg/dL (70-100) H 05/22/17 08:43 Calcium 8.9 mg/dL (8.5-10.4) 05/22/17 08:43 Magnesium 1.7 mg/dL (1.6-2.3) 05/22/17 08:43 Total Bilirubin 1.6 mg/dL (0.1-1.4) H 05/21/17 07:30 Conjugated Bilirubin 0.5 mg/dL (0.0-0.5) 05/21/17 07:30 Unconjugated Bilirubin 1.1 mg/dL (0.0-1.1) 05/21/17 07:30 AST 22 IU/L (17-59) 05/21/17 07:30 ALT 33 IU/L (21-72) 05/21/17 07:30 Alkaline Phosphatase 58 IU/L (38-126) 05/21/17 07:30 Troponin I 0.049 ng/mL (0.000-0.034) H 05/21/17 21:15 NT-Pro-B Natriuret Pep 2220 pg/mL (0-125) H 05/21/17 07:30 Total Protein 6.5 g/dL (6.3-8.2) 05/21/17 07:30 Albumin 4.0 g/dL (3.5-5.0) 05/21/17 07:30 Specimen Hemolysis Cancelled 05/22/17 08:43 Visualized and Interpreted Chest x-ray results: Yes Chest X-ray Interpretation: other (CHF ) Visualized and Interpreted EKG results: Yes EKG Interpretation: Positive for: normal sinsus rhythm, other (PVC and PAC) Telemetry: normal sinus rhythm Echocardiogram: mild reduction in LVEF (40-45%) with inferolateral and inferoseptal hypokinesis noted. Moderate to severe MR. RVSP was estimated to be 55-65 mm Hg. A/P Assessment: Patient is a 67 y/o male with known history of CAD (no intervention was placed - 1994), COPD, HTN, HLP, CHF (reportedly by PCP note), who presented [place] [facility] with shortness of breath. Recommendations for patient to be admitted to [facility]. Echocardiogram was performed with abnormalities to both systolic function as well as progressive pathology to the mitral valve (from "moderate" in the past to more "moderate to severe" on current study). Slight elevation in troponin was noted. No cardiovascular complaints of chest pains or pressure, and after diuresis, the patient stating that he feels much better. Of concern is history of CAD without intervention in the remote past as well as the decreased ejection fraction (uncertain if this is a newer finding or old given the lack of follow up). Patient had bad experience with angiogram in the past, and has family/friends that had bad experience with open heart surgery. At present, the patient is not wanting to have any further cardiac testing at present. Plan: (1) Recommendations for patient to have angiogram - assessment of the CAD from prior as well as better understanding of the mitral valve pathology (2) Strong recommendations for complete smoking cessation - alcohol should be stopped - MMJ should also be stopped (3) Would continue therapy on ASA (81 mg per day) (4) Statins should be taken consistently - would have reassessment of cholesterol and LFTs after about 5 weeks of therapy (5) If the patient opts to leave given he is feeling better, would arrange for the patient to be seen in the outpatient setting within less than one week (6) The degree of valve pathology is of concern coupled with the knowledge of CAD from the remote past (7) Further concerns about the patient's social situation and follow up capability
[2017-05-22] MEDS: FUROSEMIDE 40 MG TAB PO SCH (15:05)
[2017-05-22] MEDS ORDERED: MAGNESIUM SULF 1 GM/DEXTROSE 100 ML IV ONE (16:00)
[2017-05-22] MEDS ORDERED: diphenhydrAMINE 25 MG CAP PO ONE (16:01)
[2017-05-22] MEDS ORDERED: DIAZEPAM 5 MG TAB PO ONE (16:01)
[2017-05-22] MEDS ORDERED: ASPIRIN EC 325 MG TAB PO ONE (16:01)
[2017-05-22] MEDS ORDERED: NITROGLYCERIN 0.4 MG BTL SL PRN (16:01)
[2017-05-22] MEDS ORDERED: FAMOTIDINE 20 MG TAB PO ONE (16:01)
[2017-05-22] MEDS ORDERED: ACETAMINOPHEN 325 MG TAB PO PRN (16:01)
[2017-05-22] MEDS ORDERED: TEMAZEPAM 15 MG CAP PO PRN (16:01)
[2017-05-22] MEDS ORDERED: NS 1,000 ML IV SCH (16:15)
--- NOTE | 2017-05-22 16:21 | ASMTCASEMG ---
Living Arrangements What is your living Answers: Alone arrangement? Who do you live with? Type Of Residence What kind of residence do Answers: Homeless you live in? Discharge Plan Comments Coordination Status Comments Notes: Pt is a 67 y/o man admitted w/ dyspnea, acute coronary syndromem and CHF. Pt lives out of his van. Pt chronically uses ETOH. CM met w/ pt for dispo planning. Pt reports that his declining health will be a good deterrent for him to stop drinking. Pt refused ETOH resources. PT is ordered and awaiting eval. Pt will most likely have an angiogram. CM available if there are d/c needs. Date Signed: 05/22/2017 04:21 PM Electronically Signed By:CAROLYNE Grubbs
[2017-05-22] MEDS: CARVEDILOL 3.125 MG TAB PO SCH (16:58)
--- NOTE | 2017-05-22 17:05 | PDMN ---
Medical Necessity Medical necessity: Change to IP, as of 05/22/17, per MD; los >2 mn for eval/tx of CAD, CHF, valvular disease w/progression, cardiac cath pending, hx htn, COPD ; per progress note 05/22/17
[2017-05-22] MEDS ORDERED: FUROSEMIDE 40 MG TAB PO SCH (21:00)
[2017-05-22] MEDS ORDERED: POTASSIUM CL 10 MEQ TAB PO ONE (21:52)
--- NOTE | 2017-05-23 08:45 | CPEKG ---
Heart Rate: 71 RR Interval: 845 P-R Interval: 144 QRSD Interval: 98 QT Interval: 412 QTC Interval: 448 P [place]: 68 QRS [place]: 50 T Wave [place]: -74 EKG Severity - ABNORMAL ECG - EKG Impression: SINUS RHYTHM EKG Impression: MULTIFORM VENTRICULAR PREMATURE COMPLEXES EKG Impression: PROBABLE LEFT ATRIAL ABNORMALITY EKG Impression: BORDERLINE T ABNORMALITIES, DIFFUSE LEADS EKG Impression: No significant change from May 22, 2017 EKG Impression: Incomplete left bundle branch block Electronically Signed By: Christ Gonzalez 23-May-2017 10:49:04
[2017-05-23 08:58] LABS: PLATELET COUNT 196 10^3/uL (150-400)
[2017-05-23 09:19] LABS: INR 1.06 (0.83-1.16); PROTIME(PATIENT) 13.7 SEC (12.0-15.0)
[2017-05-23] MEDS: LISINOPRIL 40 MG TAB PO SCH (09:58)
[2017-05-23] MEDS: CARVEDILOL 3.125 MG TAB PO SCH ×2 (09:59→17:16)
[2017-05-23] MEDS: ASPIRIN 81 MG CHEWABLE TAB PO SCH (09:59)
[2017-05-23] MEDS ORDERED: ASPIRIN EC 325 MG TAB PO ONE (10:00)
[2017-05-23] MEDS ORDERED: DIAZEPAM 5 MG TAB PO ONE (10:00)
[2017-05-23] MEDS ORDERED: FAMOTIDINE 20 MG TAB PO ONE (10:00)
[2017-05-23] MEDS ORDERED: diphenhydrAMINE 25 MG CAP PO ONE (10:15)
[2017-05-23] MEDS ORDERED: MIDAZOLAM 2 MG/2 ML VIAL ONE ×2 (10:38→13:57)
[2017-05-23] MEDS ORDERED: LIDOCAINE 1% 300 MG/30 ML SDV ONE (10:38)
[2017-05-23] MEDS ORDERED: fentaNYL 100 MCG/2 ML INJ ONE (10:38)
[2017-05-23] MEDS ORDERED: IOPAMIDOL (ISOVUE-370) 150 ML BTL IV ONE (10:39)
--- NOTE | 2017-05-23 10:41 | HOSPPROG ---
Hospitalist Progress Note Assessment/Plan: 67 yo male with hx of CAD, CHF, and alcoholism admitted for CHF-E. Volume and resp status is better TTE c/w significant worsening of valve disease Trops mildly elevated Plan for Cath per Card this morning Volume status is better and will decrease Lasix to once daily #CHF-E, systolic #Valvular disease with progression #elevated troponin #chronic alcoholism, not actively withdrawin #hypokalemia, replace PRN. #tobacco abuse disorder: nicotine replacement PRN SCD's Full Code Dispo: pending Cath Subjective: Ready for Cath today. No CP or SOB Objective: Vital Signs Temp Pulse Resp BP Pulse Ox 36.8 C 72 18 117/90 H 96 05/23/17 04:00 05/23/17 09:59 05/23/17 04:00 05/23/17 09:59 05/23/17 04:00 Laboratory Results 05/23/17 07:56 05/23/17 07:56 05/22/17 05/23/17 05/24/17 05:59 05:59 05:59 Intake Total 657 Output Total 725 Balance -68 PT 13.7 SEC (12.0-15.0) 05/23/17 09:05 INR 1.06 (0.83-1.16) 05/23/17 09:05 - Physical Exam Constitutional: no apparent distress Eyes: PERRL Ears, Nose, Mouth, Throat: moist mucous membranes, hearing normal Cardiovascular: regular rate and rhythym, No edema Respiratory: reduced air movement Gastrointestinal: normoactive bowel sounds Genitourinary: no bladder fullness Skin: warm Neurologic: AAOx3 Psychiatric: interacting appropriately, not anxious, not encephalopathic ICD10 Worksheet Patient Problems: Problems Problem Status Onset Acute exacerbation of congestive heart failure Acute Dyspnea Acute Elevated troponin Acute Pulmonary vascular congestion Acute chronic disease mgmt/transitional care Acute
[2017-05-23] MEDS ORDERED: VERAPAMIL 5 MG/2 ML VIAL ONE (12:26)
--- NOTE | 2017-05-23 13:54 | PDHPUP ---
History & Physical Update H&P update statement: This history and physical update is based on an assessment of the patient which was completed after admission or registration (within 24 hours), but prior to the surgery/procedure. H&P update: H&P reviewed & patient examined, no change in patient's condition since H&P completed
--- NOTE | 2017-05-23 13:55 | PDPROPOC ---
Sedation Plan of Care Sedation Plan of Care: vital signs stable, mental status noted, patient educated of risks, benefits, alternatives, patient can tolerate sedation ASA Classification: ASA 2 Planned drugs: fentanyl, midazolam Mallampati Score: Class 2 Mallampati Reference Image: Patient passed 3-3-2 rule?: Yes
--- NOTE | 2017-05-23 14:04 | PDDXCAT ---
Diagnostic Cath Note - . 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 LAD: Mild irregularities. LCX: Mid-circumflex with 40-50% stenosis; AV groove portion of circumflex 100% just after origin of principal OM branch; occluded AV groove circumflex receives [id number]-dw-ncyz collaterals supplying a long posterolateral branch. RCA: Proximal RCA with a 50% stenosis. EDP: 20 mmHg LVEF: 30% Wall motion: Global hypokinesis and inferior akinesis. - Findings-Right Heart Catheterization RA: 12 mmHg RV: 70/14 mmHg PA: 70/22/46 mmHg O2 sat 74.4% PAOP: 20 mmHg AO: 120/80/102 mmHg O2sat 98.2% CO: 4.71 L/min CI: 2.27 L/min/sq mtr Complications: None Estimated blood loss: <50ml Closure method: Angioseal Assessment: 1) Probable non-ischemic cardiomyopathy with severely reduced left ventricular systolic function. (The degree of LV systolic dysfunction is out of proportion to his CAD.) 2) Severe mitral regurgitation. 3) Coronary artery disease as described above. 4) Moderate to severe pulmonary hypertension. Plan: Recommend consultation with CT surgery to consider mitral valve repair/ replacement and CABG. Patient Problems: Problems Problem Status Onset Acute exacerbation of congestive heart failure Acute Dyspnea Acute Elevated troponin Acute Pulmonary vascular congestion Acute chronic disease mgmt/transitional care Acute
[2017-05-23] MEDS ORDERED: ONDANSETRON 4 MG/2 ML VIAL IVP PRN (14:15)
[2017-05-23] MEDS ORDERED: ATROPINE SULFATE 1 MG/10 ML SYR IVP PRN (14:15)
--- NOTE | 2017-05-23 16:00 | ASMTCMCOM ---
CM Note CM Note Notes: Pt had cath procedure today. Charleen from transitional care is following pt. Charleen scheduled pt w/ outpatient appointments found in the discharge section of [facility]. CM available should d/c needs arise. Date Signed: 05/23/2017 03:59 PM Electronically Signed By:CAROLYNE Grubbs
[2017-05-23] MEDS: FOLIC ACID 1 MG TAB PO SCH (16:05)
[2017-05-23] MEDS: THIAMINE HCL 100 MG TAB PO SCH (16:06)
[2017-05-23] MEDS: MULTIVITAMINS 1 EACH TAB PO SCH (16:06)
[2017-05-23] MEDS: FUROSEMIDE 40 MG TAB PO SCH ×2 (16:28→17:15)
[2017-05-24 04:39] LABS: PLATELET COUNT 182 10^3/uL (150-400)
[2017-05-24] MEDS ORDERED: MAGNESIUM SULF 1 GM/DEXTROSE 100 ML IV ONE (07:32)
[2017-05-24] MEDS: LISINOPRIL 40 MG TAB PO SCH (08:23)
[2017-05-24] MEDS: CARVEDILOL 3.125 MG TAB PO SCH ×2 (08:23→17:49)
[2017-05-24] MEDS: ASPIRIN 81 MG CHEWABLE TAB PO SCH (08:23)
[2017-05-24] MEDS: FOLIC ACID 1 MG TAB PO SCH (08:23)
[2017-05-24] MEDS: MULTIVITAMINS 1 EACH TAB PO SCH (08:23)
[2017-05-24] MEDS: FUROSEMIDE 40 MG TAB PO SCH (08:23)
[2017-05-24] MEDS: THIAMINE HCL 100 MG TAB PO SCH (08:24)
[2017-05-24] MEDS: SPIRONOLACTONE 25 MG TAB PO SCH (08:35)
[2017-05-24] MEDS: NICOTINE 21 MG/24 HR PATCH TD PRN (08:43)
--- NOTE | 2017-05-24 10:20 | SOAPPROG ---
RAUDEL Progress Note Assessment/Plan: Assessment: 67-year-old male with known coronary artery disease and previous myocardial infarction dating back to 1994 admitted now with symptoms of fatigue and findings suggesting congestive heart failure. Cardiac catheterization indicates an occluded collateralized circumflex. The myocardium subtended by this distribution appears to be akinetic. By echocardiography he has at least moderate mitral regurgitation and associated cardiomyopathy disproportionate to the degree of coronary disease. Presently, it appears that his mitral regurgitation is likely ischemic in nature related to a previous circumflex territory myocardial infarction. His decreased ejection fraction may be a result of significant mitral regurgitation or potentially excessive alcohol use. Today he appears to be fairly well compensated. Plan: 1. We will plan to continue aggressive medical therapy. 2. Today I have added Aldactone to his medications. 3. Will carefully follow his electrolytes and renal function. 4. He was recently started on Coreg. This can be adjusted and up titrated as an outpatient. 5. As an outpatient, his excessive alcohol use can be addressed. 6. Depending on his clinical course, we may consider referral to cardiothoracic surgery for consideration of mitral valve replacement and coronary artery bypass graft surgery. 05/24/17 10:20 Subjective: The patient was seen and examined. His chart was reviewed. I reviewed his previous echocardiogram and cardiac catheterization films. He was admitted with fatigue and findings that suggested congestive heart failure. Today, he appears to be well compensated and is feeling better. His cardiac catheterization demonstrated an occluded mid to distal circumflex. His echocardiogram demonstrated a substantial reduction in his ejection fraction associated with at least moderate mitral regurgitation. Wall motion abnormalities both on his ventriculogram and echocardiogram suggest akinesis in the distribution of the circumflex. Altogether, these findings suggest ischemic mitral regurgitation. Certainly, other possibilities are present including a cardiomyopathy related to his fairly excessive alcohol use. On telemetry he has been in sinus rhythm. No ventricular arrhythmias or episodes of atrial fibrillation or flutter have been identified. Objective: Vital Signs Temp Pulse Resp BP Pulse Ox 36.4 C 83 13 132/90 H 95 05/24/17 08:00 05/24/17 08:00 05/24/17 08:00 05/24/17 08:00 05/24/17 08:00 Laboratory Results 05/24/17 03:47 05/24/17 03:47 05/23/17 05/24/17 05/25/17 05:59 05:59 05:59 Intake Total 657 1400 Output Total 725 300 Balance -68 1100 PT 13.7 SEC (12.0-15.0) 05/23/17 09:05 INR 1.06 (0.83-1.16) 05/23/17 09:05 Physical Exam - Physical Exam General Appearance: WD/WN, no apparent distress Neck: non-tender, full range of motion Respiratory: lungs clear, No crackles, No rales, No rhonchi Cardiac/Chest: normal peripheral pulses, regular rate, rhythm, systolic murmur ( 3/6 holosystolic murmur appreciated radiating into the axilla), No edema, No gallop, No JVD Peripheral Pulses: 2+: carotid (R), carotid (L) Abdomen: non-tender, soft Rectal: deferred Neuro/Psych: alert, oriented x 3 ICD10 Worksheet Patient Problems: Problems Problem Status Onset Acute exacerbation of congestive heart failure Acute Dyspnea Acute Elevated troponin Acute Pulmonary vascular congestion Acute chronic disease mgmt/transitional care Acute
--- NOTE | 2017-05-24 10:58 | HOSPPROG ---
Hospitalist Progress Note Assessment/Plan: 67 yo male with hx of CAD, CHF, and alcoholism admitted for CHF-E. Volume and resp status is better TTE/CATH: ischemic mitral regurgitation, occluded mid to distal circumflex, akinesis in the distribution of the circumflex Cardiomyopathy disproportionate to the degree of CAD. Plan: -cont with current meds -Spironolactone started today -monitor overnight #CHF-E, systolic #Valvular disease with progression #elevated troponin #chronic alcoholism, not actively withdrawin #hypokalemia, replace PRN. #tobacco abuse disorder: nicotine replacement PRN SCD's Full Code Dispo: continue inpatient Subjective: feels bettter, no chest pain Objective: Vital Signs Temp Pulse Resp BP Pulse Ox 36.4 C 83 13 132/90 H 95 05/24/17 08:00 05/24/17 08:00 05/24/17 08:00 05/24/17 08:00 05/24/17 08:00 Laboratory Results 05/24/17 03:47 05/24/17 03:47 05/23/17 05/24/17 05/25/17 05:59 05:59 05:59 Intake Total 657 1400 Output Total 725 300 Balance -68 1100 PT 13.7 SEC (12.0-15.0) 05/23/17 09:05 INR 1.06 (0.83-1.16) 05/23/17 09:05 - Physical Exam Constitutional: no apparent distress Eyes: PERRL Ears, Nose, Mouth, Throat: moist mucous membranes Cardiovascular: regular rate and rhythym, No edema Respiratory: no respiratory distress Gastrointestinal: normoactive bowel sounds, soft, non-tender abdomen Skin: warm Musculoskeletal: full muscle strength Neurologic: AAOx3 Psychiatric: interacting appropriately, not anxious, not encephalopathic ICD10 Worksheet Patient Problems: Problems Problem Status Onset Acute exacerbation of congestive heart failure Acute Dyspnea Acute Elevated troponin Acute Pulmonary vascular congestion Acute chronic disease mgmt/transitional care Acute
--- NOTE | 2017-05-24 17:14 | ASMTCMCOM ---
CM Note CM Note Notes: RN states Pt. would like to speak with Yocasta today. Today Pt. states he needs to get in touch with his friends "Sabino Acevedo" and "Beni" to let them into his van so that he can get his phone and communicate with friends about potential heart surgery he will need. Pt has no contact information for them no does he know how to spell their names. Pt. does not want surgery until he can speak to his friends about it. Today Yocasta tried to locate his friends, but was unsuccessful. Pt. thinks he may leave AMA tomorrow if MD won't let him go get his van in [place] where his phone is. CM to follow. Date Signed: 05/24/2017 05:13 PM Electronically Signed By:Joanne Bullard LCSW
[2017-05-24] MEDS ORDERED: FUROSEMIDE 40 MG TAB PO ONE (21:16)
[2017-05-25] MEDS: LISINOPRIL 40 MG TAB PO SCH (09:33)
[2017-05-25] MEDS: CARVEDILOL 3.125 MG TAB PO SCH (09:33)
[2017-05-25] MEDS: SPIRONOLACTONE 25 MG TAB PO SCH (09:33)
[2017-05-25] MEDS: MULTIVITAMINS 1 EACH TAB PO SCH (09:34)
[2017-05-25] MEDS: ASPIRIN 81 MG CHEWABLE TAB PO SCH (09:34)
[2017-05-25] MEDS: THIAMINE HCL 100 MG TAB PO SCH (09:34)
[2017-05-25] MEDS: FOLIC ACID 1 MG TAB PO SCH (09:34)
[2017-05-25] MEDS: FUROSEMIDE 40 MG TAB PO SCH (09:34)
--- NOTE | 2017-05-25 10:16 | SOAPPROG ---
RAUDEL Progress Note Assessment/Plan: Assessment: 67-year-old male with known coronary artery disease and previous myocardial infarction dating back to 1994 admitted now with symptoms of fatigue and findings suggesting congestive heart failure. Cardiac catheterization indicates an occluded collateralized circumflex. The myocardium subtended by this distribution appears to be akinetic. By echocardiography he has at least moderate mitral regurgitation and associated cardiomyopathy disproportionate to the degree of coronary disease. Presently, it appears that his mitral regurgitation is likely ischemic in nature related to a previous circumflex territory myocardial infarction. His decreased ejection fraction may be a result of significant mitral regurgitation or potentially excessive alcohol use. Today he appears to be fairly well compensated. Plan: 1. He can be discharged today. 2. I have asked him to stop all ETOH intake. 3. He will cut down on smoking. 4. I will see him in the office in the next 1 to 2 weeks. 5. Will follow his MR and EF and social factors. 6. May consider MVR in the near future depending on clinical course. 05/25/17 10:14 Subjective: No complaints today. Wants to go home. Case discussed with CT surgery. Objective: Vital Signs Temp Pulse Resp BP Pulse Ox 36.3 C 85 10 L 142/104 H 95 05/25/17 07:37 05/25/17 07:37 05/25/17 07:37 05/25/17 07:37 05/25/17 07:37 Laboratory Results 05/24/17 03:47 05/25/17 04:21 05/24/17 05/25/17 05/26/17 05:59 05:59 05:59 Intake Total 1400 750 Output Total 300 Balance 1100 750 PT 13.7 SEC (12.0-15.0) 05/23/17 09:05 INR 1.06 (0.83-1.16) 05/23/17 09:05 Physical Exam - Physical Exam General Appearance: WD/WN, no apparent distress Neck: non-tender, supple Respiratory: lungs clear Cardiac/Chest: regular rate, rhythm, systolic murmur (3/6 HSM), No edema, No gallop, No JVD Peripheral Pulses: 2+: carotid (R), carotid (L) ICD10 Worksheet Patient Problems: Problems Problem Status Onset Acute exacerbation of congestive heart failure Acute Dyspnea Acute Elevated troponin Acute Pulmonary vascular congestion Acute chronic disease mgmt/transitional care Acute
--- NOTE | 2017-05-25 12:37 | PDDCSUM ---
Discharge Summary Discharge Summary: HPI/Hospital Course: 67 yo male with hx of CAD, CHF, and alcoholism admitted for CHF-E. Volume and resp status is better with diuresis TTE/CATH: ischemic mitral regurgitation, occluded mid to distal circumflex, akinesis in the distribution of the circumflex Cardiomyopathy disproportionate to the degree of CAD. He is well compensated at this time He has been started on an Aspiring, Lasix, ROULA-I, Spironolactone, and BB. Continue with medical optimization. f/u with Cards in 1-2 wees Will hopefully stop smoking will hopefully stop ETOH Does not want CABG Cleared for D/C by Cards today DDX: #CHF-E, systolic #Valvular disease with progression #elevated troponin #chronic alcoholism, not actively withdrawin #hypokalemia, replace PRN. #tobacco abuse disorder: nicotine replacement PRN EXAM: VSS NAD AAOX3 RRR CTAB S/NT/ND NO LE EDEMA meds: see med rec f/u: per above total time spent on discharge is 35 minutes
[2017-05-25 12:45] VITALS: BP 145/108; PULSE 87; RESP 16; TEMP 97.6; O2SAT 97
--- NOTE | 2017-05-25 14:04 | ASMTCMCOM ---
CM Note CM Note Notes: Patient concerned about his van which is parked in [facility]'s parking lot. Patient lives in his van and has all his belongings stored in a storage shed. Patient not interested in cardiac surgery and wants to be discharged. Doesn't have any phone #'s of people who might help him get to [facility]. Patient given a bus token. Call made to [facility] to let them know patient was on his way to order picker his van. No other needs at this time. Date Signed: 05/25/2017 02:04 PM Electronically Signed By:Liza Butt LCSW
--- NOTE | 2017-05-25 14:04 | ASMTCMCOM ---
CM Note CM Note Notes: Patient concerned about his van which is parked in [facility]'s parking lot. Patient lives in his van and has all his belongings stored in a storage shed. Patient not interested in cardiac surgery and wants to be discharged. Doesn't have any phone #'s of people who might help him get to [facility]. Patient given a bus token. Call made to [facility] to let them know patient was on his way to picker operator his van. No other needs at this time. Date Signed: 05/25/2017 02:04 PM Electronically Signed By:Liza Butt LCSW
--- NOTE | 2017-05-25 14:04 | ASMTCMCOM ---
CM Note CM Note Notes: Patient concerned about his van which is parked in [facility]'s parking lot. Patient lives in his van and has all his belongings stored in a storage shed. Patient not interested in cardiac surgery and wants to be discharged. Doesn't have any phone #'s of people who might help him get to [facility]. Patient given a bus token. Call made to [facility] to let them know patient was on his way to apple picker his van. No other needs at this time. Date Signed: 05/25/2017 02:04 PM Electronically Signed By:Liza Butt LCSW
--- NOTE | 2017-05-25 14:30 | ASDISCHSUM ---
Discharge Information Plan Status:Home with No Needs Medically Cleared to Leave:05/25/2017 Discharge Date:05/25/2017 01:53 PM CM D/C Disposition:Home, Routine, Self-Care ADT D/C Disposition:Home, Routine, Self-Care Projected Discharge Date:05/25/2017 02:00 PM Transportation at D/C:Bus Ticket Discharge Delay Reason: Follow-Up Date:05/25/2017 02:00 PM Discharge Slot:2 - 12:01 pm - 18:00 pm Final Diagnosis:CHF, Valvular disease, Elevated troponin Placement Information Patient Contact Information Contact Name:ALISASÁNCHEZ Relationship: Address: Home Phone: Work Phone: City: Alternate Phone: State/Zip Code: Email: Financial Information Financial Class: Primary Plan Desc:MEDICARE INPATIENT Primary Plan Number:[id number] Secondary Plan Desc:[employer] [place] Secondary Plan Number:[id number] Assessment Information [facility] Initial CM Assessment Living Arrangements What is your living Answers: Alone arrangement? Who do you live with? Type Of Residence What kind of residence do Answers: Homeless you live in? Discharge Plan Comments Coordination Status Comments Notes: Pt is a 67 y/o man admitted w/ dyspnea, acute coronary syndromem and CHF. Pt lives out of his van. Pt chronically uses ETOH. CM met w/ pt for dispo planning. Pt reports that his declining health will be a good deterrent for him to stop drinking. Pt refused ETOH resources. PT is ordered and awaiting eval. Pt will most likely have an angiogram. CM available if there are d/c needs. Date Signed: 05/22/2017 04:21 PM Electronically Signed By:CAROLYNE Grubbs [facility] CM Progress Note CM Note CM Note Notes: Pt had cath procedure today. Charleen from transitional care is following pt. Charleen scheduled pt w/ outpatient appointments found in the discharge section of [facility]. CM available should d/c needs arise. Date Signed: 05/23/2017 03:59 PM Electronically Signed By:CAROLYNE Grubbs [facility] CM Progress Note CM Note CM Note Notes: RN states Pt. would like to speak with Yocasta today. Today Pt. states he needs to get in touch with his friends "Sabino Acevedo" and "Beni" to let them into his van so that he can get his phone and communicate with friends about potential heart surgery he will need. Pt has no contact information for them no does he know how to spell their names. Pt. does not want surgery until he can speak to his friends about it. Today Yocasta tried to locate his friends, but was unsuccessful. Pt. thinks he may leave AMA tomorrow if won't let him go get his van in [place] where his phone is. CM to follow. Date Signed: 05/24/2017 05:13 PM Electronically Signed By:Joanne Bullard LCSW [facility] CM Progress Note CM Note CM Note Notes: Patient concerned about his van which is parked in [facility]'s parking lot. Patient lives in his van and has all his belongings stored in a storage shed. Patient not interested in cardiac surgery and wants to be discharged. Doesn't have any phone #'s of people who might help him get to [facility]. Patient given a bus token. [facility] to let [facility] know patient was on his way to cone picker his van. No other needs at this time. Date Signed: 05/25/2017 02:04 PM Electronically Signed By:Liza Butt LCSW Intervention Information Intervention Type:*ARGUETA-Signed Date of Service:05/22/2017 10:20 AM Patient Type:Observation Staff Member:Yanira Nichols Hours: Discipline: Severity: Comment:
--- NOTE | 2017-05-25 14:30 | ASDISCHSUM ---
Discharge Information Plan Status:Home with No Needs Medically Cleared to Leave:05/25/2017 Discharge Date:05/25/2017 01:53 PM CM D/C Disposition:Home, Routine, Self-Care ADT D/C Disposition:Home, Routine, Self-Care Projected Discharge Date:05/25/2017 02:00 PM Transportation at D/C:Bus Ticket Discharge Delay Reason: Follow-Up Date:05/25/2017 02:00 PM Discharge Slot:2 - 12:01 pm - 18:00 pm Final Diagnosis:CHF, Valvular disease, Elevated troponin Placement Information Patient Contact Information Contact Name:ALISASÁNCHEZ Relationship: Address: Home Phone: Work Phone: City: Alternate Phone: State/Zip Code: Email: Financial Information Financial Class: Primary Plan Desc:MEDICARE INPATIENT Primary Plan Number:[id number] Secondary Plan Desc:MED[place] [place] Secondary Plan Number:[id number] Assessment Information [facility] Initial CM Assessment Living Arrangements What is your living Answers: Alone arrangement? Who do you live with? Type Of Residence What kind of residence do Answers: Homeless you live in? Discharge Plan Comments Coordination Status Comments Notes: Pt is a 67 y/o man admitted w/ dyspnea, acute coronary syndromem and CHF. Pt lives out of his van. Pt chronically uses ETOH. CM met w/ pt for dispo planning. Pt reports that his declining health will be a good deterrent for him to stop drinking. Pt refused ETOH resources. PT is ordered and awaiting eval. Pt will most likely have an angiogram. CM available if there are d/c needs. Date Signed: 05/22/2017 04:21 PM Electronically Signed By:CAROLYNE Grubbs [facility] CM Progress Note CM Note CM Note Notes: Pt had cath procedure today. Charleen from transitional care is following pt. Charleen scheduled pt w/ outpatient appointments found in the discharge section of [facility]. CM available should d/c needs arise. Date Signed: 05/23/2017 03:59 PM Electronically Signed By:CAROLYNE Grubbs [facility] CM Progress Note CM Note CM Note Notes: RN states Pt. would like to speak with Yocasta today. Today Pt. states he needs to get in touch with his friends "Sabino Acevedo" and "Beni" to let them into his van so that he can get his phone and communicate with friends about potential heart surgery he will need. Pt has no contact information for them no does he know how to spell their names. Pt. does not want surgery until he can speak to his friends about it. Today Yocasta tried to locate his friends, but was unsuccessful. Pt. thinks he may leave AMA tomorrow if won't let him go get his van in [place] where his phone is. CM to follow. Date Signed: 05/24/2017 05:13 PM Electronically Signed By:Joanne Bullard LCSW [facility] CM Progress Note CM Note CM Note Notes: Patient concerned about his van which is parked in [facility]'s parking lot. Patient lives in his van and has all his belongings stored in a storage shed. Patient not interested in cardiac surgery and wants to be discharged. Doesn't have any phone #'s of people who might help him get to [facility]. Patient given a bus token. Call made to [facility] to let them know patient was on his way to lemon picker his van. No other needs at this time. Date Signed: 05/25/2017 02:04 PM Electronically Signed By:Liza Butt LCSW Intervention Information Intervention Type:*ARGUETA-Signed Date of Service:05/22/2017 10:20 AM Patient Type:Observation Staff Member:Yanira Nichols Hours: Discipline: Severity: Comment:
--- NOTE | 2017-05-25 14:30 | ASDISCHSUM ---
Discharge Information Plan Status:Home with No Needs Medically Cleared to Leave:05/25/2017 Discharge Date:05/25/2017 01:53 PM CM D/C Disposition:Home, Routine, Self-Care ADT D/C Disposition:Home, Routine, Self-Care Projected Discharge Date:05/25/2017 02:00 PM Transportation at D/C:Bus Ticket Discharge Delay Reason: Follow-Up Date:05/25/2017 02:00 PM Discharge Slot:2 - 12:01 pm - 18:00 pm Final Diagnosis:CHF, Valvular disease, Elevated troponin Placement Information Patient Contact Information Contact Name:ALISASÁNCHEZ Relationship: Address: Home Phone: Work Phone: City: Alternate Phone: State/Zip Code: Email: Financial Information Financial Class: Primary Plan Desc:MEDICARE INPATIENT Primary Plan Number:[id number] Secondary Plan Desc:MEDICAID [place]ALTH [place] Secondary Plan Number:[id number] Assessment Information [facility] Initial CM Assessment Living Arrangements What is your living Answers: Alone arrangement? Who do you live with? Type Of Residence What kind of residence do Answers: Homeless you live in? Discharge Plan Comments Coordination Status Comments Notes: Pt is a 67 y/o man admitted w/ dyspnea, acute coronary syndromem and CHF. Pt lives out of his van. Pt chronically uses ETOH. CM met w/ pt for dispo planning. Pt reports that his declining health will be a good deterrent for him to stop drinking. Pt refused ETOH resources. PT is ordered and awaiting eval. Pt will most likely have an angiogram. CM available if there are d/c needs. Date Signed: 05/22/2017 04:21 PM Electronically Signed By:CAROLYNE Grubbs [facility] CM Progress Note CM Note CM Note Notes: Pt had cath procedure today. Charleen from transitional care is following pt. Charleen scheduled pt w/ outpatient appointments found in the discharge section of [facility]. CM available should d/c needs arise. Date Signed: 05/23/2017 03:59 PM Electronically Signed By:CAROLYNE Grubbs [facility] CM Progress Note CM Note CM Note Notes: RN states Pt. would like to speak with Yocasta today. Today Pt. states he needs to get in touch with his friends "Sabino Acevedo" and "Beni" to let them into his van so that he can get his phone and communicate with friends about potential heart surgery he will need. Pt has no contact information for them no does he know how to spell their names. Pt. does not want surgery until he can speak to his friends about it. Today Yocasta tried to locate his friends, but was unsuccessful. Pt. thinks he may leave AMA tomorrow if won't let him go get his van in [place] where his phone is. CM to follow. Date Signed: 05/24/2017 05:13 PM Electronically Signed By:Joanne Bullard LCSW [facility] CM Progress Note CM Note CM Note Notes: Patient concerned about his van which is parked in [facility]'s parking lot. Patient lives in his van and has all his belongings stored in a storage shed. Patient not interested in cardiac surgery and wants to be discharged. Doesn't have any phone #'s of people who might help [facility] get [facility]. Patient given a bus token. Call made to [facility] to let them know patient was on his way to moss picker his van. No other needs at this time. Date Signed: 05/25/2017 02:04 PM Electronically Signed By:Liza Butt LCSW Intervention Information Intervention Type:*ARGUETA-Signed Date of Service:05/22/2017 10:20 AM Patient Type:Observation Staff Member:Yanira Nichols Hours: Discipline: Severity: Comment:
== END 2017-05-25 13:53 | disposition home or self-care (01) | DRG 287 ==
LOC: CED 06:17 → CEDHOLD 08:33 → F2W 13:26 → OBSVTOIN 05-22 16:41
PROVIDERS: ADMIT Family Medicine; ATTEND Family Medicine
PROC: B2151ZZ Fluoroscopy of Left Heart using Low Osmolar Contrast (ICD-10-PCS; principal; 2017-05-23)
PROC: B2111ZZ Fluoroscopy of Multiple Coronary Arteries using Low Osmolar Contrast (ICD-10-PCS; principal; 2017-05-23)
PROC: 4A023N8 Measurement of Cardiac Sampling and Pressure, Bilateral, Percutaneous Approach (ICD-10-PCS; principal; 2017-05-23)
CPT/HCPCS: 71020-PO; 80048-PO; 80076-PO; 83735-PO; 83880-PO; 84484-PO; 85025-PO; 97161-GP; C1760; G0378; G8978-GP-CI; G8979-GP-CI; G8980-GP-CI; J1644; J1940; J2250; J3010; J3475; Q9967

== ENCOUNTER 2017-06-19 19:57 | Inpatient (IN) | payer OTHER, MEDICAID ==
--- NOTE | 2017-06-19 20:02 | EDPHY ---
H & P Time Seen by Provider: 06/19/17 20:00 HPI/ROS: CHIEF COMPLAINT: Short of breath HISTORY OF PRESENT ILLNESS: History of CHF and coronary disease started having central chest discomfort and shortness of breath last night which is severe today. Worse with exertion and lying flat. Not associated with cough or fever. Describes no changes in his medications. Minimal leg swelling and no major change in his weight. He continues to smoke but has not had any alcohol for 3 weeks. REVIEW OF SYSTEMS: Eye: no change in vision ENT: no sore throat Cardiac: No palpitations or syncope Pulmonary: HPI Abdomen: no vomiting, diarrhea, abdominal pain Musculoskeletal: Mild leg swelling bilaterally Skin: no rash Neuro: no headache Constitutional: no fever reported : no urinary symptoms A comprehensive 10 point review of systems is otherwise negative aside from elements mentioned in the history of present illness. PAST MEDICAL HISTORY: Discharge summary dated 05/25/2017 personally reviewed. Includes coronary disease, CHF, alcoholism. History and physical dated 2016 personally reviewed includes anxiety and hypertension. Had a at echo in catheterization which showed mitral regurgitation, occluded mid to distal circumflex, and cardiomyopathy. Social history: Homeless, current smoker. Denies recent alcohol. General Appearance: Alert and conversant, cooperative. Eyes: No scleral icterus. ENT, Mouth: Normal mucous membranes. Respiratory: Bilateral wheezing, tachypneic. Extra work of breathing. Cardiovascular: Regular rate and rhythm. Gastrointestinal: Abdomen is soft and non tender. Neurological: Alert and oriented x3. Normally conversant. Face symmetric, normal movement and sensation in all extremities. Skin: Warm and dry, no rashes. Musculoskeletal: Bilateral 1+ pedal edema but no calf tenderness. Psychiatric: Not agitated. Emergency Department course/MDM: EKG, chest x-ray, labs to include BNP and troponin. Supplemental oxygen applied for room air saturation 84%. Patient said he took 2 regular aspirin today at home because he had a mild headache and was worried about his heart. 2100: Chest x-ray no pneumonia, reviewed with radiologist Dr. Bonilla. BNP noted is slightly elevated but no CHF on chest x-ray. Respiratory panel pending. At this point bacterial infection such as pneumonia seems unlikely. DuoNeb given. Supplemental oxygen. Admission for evaluation of hypoxemia. Results and plan discussed with the patient. Likely COPD exacerbation. 2113: d-dimer 2.46,CTA ordered. 2235: CTA negative for PE per Irene, hilar adenopathy present. No pneumonia. Smoking Status: Heavy smoker Constitutional: Initial Vital Signs Temperature (C) 38.0 C 06/19/17 19:59 Heart Rate 99 06/19/17 19:59 Respiratory Rate 22 H 06/19/17 19:59 Blood Pressure 156/96 H 06/19/17 19:59 O2 Sat (%) 87 L 06/19/17 19:59 O2 Delivery Mode Nasal Cannula O2 (L/minute) 4 Allergies/Adverse Reactions: No Known Allergies Allergy (Verified 01/14/17 11:15) Home Medications: Medication Instructions Recorded Nitroglycerin [Nitrostat 0.4 mg 0.4 mg SL PRN PRN 07/17/14 (*)] Albuterol [Proventil Inhaler HFA 1 - 2 puffs IH DAILY PRN 05/21/17 (*)] Aspirin [Aspirin 81mg (*)] 81 mg PO DAILY #30 tab.chew 05/25/17 Carvedilol [Coreg (*)] 3.125 mg PO BIDMEAL #60 tab 05/25/17 Folic Acid [Folic Acid 1 MG (*)] 1 mg PO DAILY #30 tab 05/25/17 Furosemide [Lasix 40 MG (*)] 40 mg PO DAILY #30 tab 05/25/17 Lisinopril [Zestril 40 mg (*)] 40 mg PO DAILY #30 tab 05/25/17 Spironolactone [Aldactone 25 MG 25 mg PO DAILY #30 tab 05/25/17 (*)] Thiamine HCl [Vitamin B-1] 100 mg PO DAILY #30 tab 05/25/17 Medical Decision Making - Diagnostics EKG Interpretation: 12-lead EKG interpreted by me; official reading is in trace master. My interpretation is sinus tachycardia rate 104 with nonspecific inferior T-wave flattening. Imaging Results: Imaging Impressions Chest X-Ray 06/19/17 20:09 Impression: 1. COPD with perihilar bronchitis, but no focal infiltrate. 2. Mild cardiomegaly, without congestive heart failure. 3. Query bilateral nipple artifact(s). Confirmation with nipple markers is recommended. Findings and recommendations were discussed with MARTHA BROOKS MD at 20:48, on 06/19/2017. Differential Diagnosis: Differential diagnosis considered for shortness of breath including but not limited to pulmonary infectious process, COPD, asthma, pulmonary embolus and congestive heart failure. Consult/Admit Bed Type: [place] [address] Critical Care Time: Critical care time spent by me, Dr. Brooks, exclusively with the care of this patient was 30 minutes, exclusive of PA or COMFORT FILLER time and exclusive of separate procedures. The organ system at risk was pulmonary and I ordered IV steroids and multiple diagnostics as well as nebulizer treatments and supplemental oxygen , to stabilize the patient and prevent worsening of the patient's condition. - Data Points Laboratory Results: Laboratory Results 06/19/17 20:15 06/19/17 20:15 06/19/17 06/19/17 06/19/17 20:15 20:15 20:15 WBC RBC Hgb Hct MCV MCH MCHC RDW Plt Count MPV Neut % (Auto) Lymph % (Auto) [place] % (Auto) Eos % (Auto) Baso % (Auto) Nucleat RBC Rel Count Absolute Neuts (auto) Absolute Lymphs (auto) Absolute Monos (auto) Absolute Eos (auto) Absolute Basos (auto) Absolute Nucleated RBC Immature Gran % Immature Gran # PT 13.0 SEC SEC (12.0-15.0) INR 0.99 (0.83-1.16) D-Dimer 2.46 ug/mLFEU H ug/mLFEU (0.00-0.50) VBG Lactic Acid 1.9 mmol/L mmol/L (0.7-2.1) Sodium 142 mEq/L mEq/L (134-144) Potassium 3.8 mEq/L mEq/L (3.5-5.2) Chloride 97 mEq/L mEq/L (97-110) Carbon Dioxide 31 mEq/l mEq/l (22-31) Anion Gap 14 mEq/L mEq/L (8-16) BUN 13 mg/dL mg/dL (7-23) Creatinine 1.1 mg/dL mg/dL (0.7-1.3) Estimated GFR > 60 Glucose 106 mg/dL H mg/dL (70-100) Calcium 9.5 mg/dL mg/dL (8.5-10.4) Total Bilirubin 2.2 mg/dL H mg/dL (0.1-1.4) Conjugated Bilirubin 0.1 mg/dL mg/dL (0.0-0.5) Unconjugated Bilirubin 2.1 mg/dL H mg/dL (0.0-1.1) Troponin I 0.029 ng/mL ng/mL (0.000-0.034) NT-Pro-B Natriuret Pep 3970 pg/mL H pg/mL (0-125) 06/19/17 20:15 WBC 10.74 10^3/uL H 10^3/uL (3.80-9.50) RBC 5.51 10^6/uL 10^6/uL (4.40-6.38) Hgb 17.7 g/dL H g/dL (13.7-17.5) Hct 51.1 % H % (40.0-51.0) MCV 92.7 fL fL (81.5-99.8) MCH 32.1 pg pg (27.9-34.1) MCHC 34.6 g/dL g/dL (32.4-36.7) RDW 12.1 % % (11.5-15.2) Plt Count 163 10^3/uL 10^3/uL (150-400) MPV 10.5 fL fL (8.7-11.7) Neut % (Auto) 80.7 % H % (39.3-74.2) Lymph % (Auto) 10.0 % L % (15.0-45.0) [place] % (Auto) 7.9 % % (4.5-13.0) Eos % (Auto) 0.6 % % (0.6-7.6) Baso % (Auto) 0.4 % % (0.3-1.7) Nucleat RBC Rel Count 0.0 % % (0.0-0.2) Absolute Neuts (auto) 8.68 10^3/uL H 10^3/uL (1.70-6.50) Absolute Lymphs (auto) 1.07 10^3/uL 10^3/uL (1.00-3.00) Absolute Monos (auto) 0.85 10^3/uL H 10^3/uL (0.30-0.80) Absolute Eos (auto) 0.06 10^3/uL 10^3/uL (0.03-0.40) Absolute Basos (auto) 0.04 10^3/uL 10^3/uL (0.02-0.10) Absolute Nucleated RBC 0.00 10^3/uL 10^3/uL (0-0.01) Immature Gran % 0.4 % % (0.0-1.1) Immature Gran # 0.04 10^3/uL 10^3/uL (0.00-0.10) PT INR D-Dimer VBG Lactic Acid Sodium Potassium Chloride Carbon Dioxide Anion Gap BUN Creatinine Estimated GFR Glucose Calcium Total Bilirubin Conjugated Bilirubin Unconjugated Bilirubin Troponin I NT-Pro-B Natriuret Pep Medications Given: Discontinued Medications Albuterol/Ipratropium (Duoneb) 3 ml IH EDNOW ONE Stop: 06/19/17 20:59 Last Admin: 06/19/17 21:08 Dose: 3 ml Methylprednisolone Sodium Succinate (Solu-Medrol) 125 mg IVP EDNOW ONE Stop: 06/19/17 21:00 Last Admin: 06/19/17 21:08 Dose: 125 mg Departure - Departure Disposition: [facility] Inpatient Acute Clinical Impression: Chronic obstructive pulmonary disease with acute exacerbation, Hypoxemia Condition: Fair
--- NOTE | 2017-06-19 20:11 | CPEKG ---
Heart Rate: 104 RR Interval: 577 P-R Interval: 140 QRSD Interval: 94 QT Interval: 340 QTC Interval: 448 P [place]: 72 QRS [place]: 55 T Wave [place]: -27 EKG Severity - BORDERLINE ECG - EKG Impression: SINUS TACHYCARDIA EKG Impression: PROBABLE LEFT ATRIAL ABNORMALITY EKG Impression: BORDERLINE T ABNORMALITIES, INFERIOR LEADS Electronically Signed By: Rodolfo Brooks 19-Jun-2017 20:11:49
[2017-06-19 20:29] LABS: % IMMATURE GRANULYOCYTES 0.4 % (0.0-1.1); ABSOLUTE IMMATURE GRANULOCYTES 0.04 10^3/uL (0.00-0.10); ADD DIFF? NO; ADD MORPH? NO; ADD SCAN? NO; ATYPICAL LYMPHOCYTE FLAG 0 (0-99); FRAGMENT RBC FLAG 0 (0-99); HEMATOCRIT 51.1 % (40.0-51.0); HEMOGLOBIN 17.7 g/dL (13.7-17.5); LEFT SHIFT FLG 0 (0-99); LIPEMIA HEMOLYSIS FLAG 90 (0-99); MEAN CELL HEMOGLOBIN 32.1 pg (27.9-34.1); MEAN CELL HEMOGLOBIN CONCENTR. 34.6 g/dL (32.4-36.7); MEAN CELL VOLUME 92.7 fL (81.5-99.8); MEAN PLATELET VOLUME 10.5 fL (8.7-11.7); PLATELET CLUMPS FLAG 0 (0-99); PLATELET COUNT 163 10^3/uL (150-400); RED BLOOD CELL COUNT 5.51 10^6/uL (4.40-6.38); RED CELL DISTRIBUTION WIDTH 12.1 % (11.5-15.2)
[2017-06-19 20:38] LABS: INR 0.99 (0.83-1.16)
[2017-06-19 20:43] LABS: ANION GAP 14 mEq/L (8-16); BILIRUBIN,TOTAL 2.2 mg/dL (0.1-1.4); CALCIUM 9.5 mg/dL (8.5-10.4); CARBON DIOXIDE 31 mEq/l (22-31); CHLORIDE 97 mEq/L (97-110); CREATININE 1.1 mg/dL (0.7-1.3); GLOMERULAR FILTRATION RATE > 60; GLUCOSE 106 mg/dL (70-100); POTASSIUM 3.8 mEq/L (3.5-5.2); SODIUM 142 mEq/L (134-144)
[2017-06-19 20:55] LABS: TROPONIN I 0.029 ng/mL (0.000-0.034)
[2017-06-19] MEDS ORDERED: IPRATROPIUM/ALBUTEROL 3 ML DEYVIAL IH ONE (20:58)
[2017-06-19] MEDS ORDERED: methylPREDNISolone SOD SUCC 125 MG/2 ML VIAL IVP ONE (20:59)
[2017-06-19 21:02] LABS: BILIRUBIN-CONJUGATED 0.1 mg/dL (0.0-0.5); BILIRUBIN-UNCONJUGATED 2.1 mg/dL (0.0-1.1)
[2017-06-19] MEDS ORDERED: IOPAMIDOL (ISOVUE 370) 100 ML BTL IV ONE (21:19)
[2017-06-19] MEDS ORDERED: ALBUTEROL 60 PUFFS/8 GM MDI IH PRN (22:07)
[2017-06-19] MEDS ORDERED: ONDANSETRON 4 MG/2 ML VIAL IVP PRN (22:07)
[2017-06-19] MEDS ORDERED: ONDANSETRON DISINTEGRATING 4 MG TAB PO PRN (22:07)
[2017-06-19] MEDS ORDERED: AZITHROMYCIN 250 MG TAB PO ONE (22:12)
[2017-06-19] MEDS ORDERED: ALBUTEROL 200 PUFFS/18 GM MDI IH PRN (22:26)
[2017-06-19] MEDS ORDERED: OXYMETAZOLINE 30 ML NASAL SPRAY EACHNARE PRN (22:43)
--- NOTE | 2017-06-19 22:47 | PDGENHP ---
History and Physical - Chief Complaint SOB - History of Present Illness 67 yo F w/ ICM, CAD, presumed COPD presents with shortness of breath. Patient began to notice shortness of breath yesterday in the setting of cough, runny nose, sore throat, and body aches. He denies chest pain, increased leg swelling , and orthopnea. He had been doing very well since discharge from the hospital in April and has been compliant with his medication until this episode. He has stopped drinking for the last 3 weeks but continues to smoke 1 pack of cigarettes daily. History Information - Allergies/Home Medication List Allergies/Adverse Reactions: No Known Allergies Allergy (Verified 01/14/17 11:15) Home Medications: Nitroglycerin [Nitrostat 0.4 mg (*)] 0.4 mg SL PRN PRN 07/17/14 [Last Taken Unknown] Albuterol [Proventil Inhaler HFA (*)] 1 - 2 puffs IH DAILY PRN 05/21/17 [Last Taken Unknown] I have personally reviewed and updated: family history, medical history - Past Medical History coronary artery disease, CHF, hypertension, hyperlipidemia, myocardial infarction - Surgical History Reports: no pertinent surgical hx - Family History Positive for: non-pertinent - Social History Smoking Status: Heavy smoker Review of Systems Review of Systems: ROS: 10pt was reviewed & negative except for what was stated in HPI & below Physical Exam Physical Exam: Temp Pulse Resp BP Pulse Ox 38.0 C 99 18 156/106 H 92 06/19/17 19:59 06/19/17 22:15 06/19/17 22:15 06/19/17 21:14 06/19/17 22:15 O2 (L/minute) 4 Constitutional: no apparent distress, not in pain Eyes: PERRL, EOMI Ears, Nose, Mouth, Throat: moist mucous membranes, no oral mucosal ulcers Cardiovascular: regular rate and rhythym, systolic murmur, edema (Trace b/l MARYELLEN) , No JVD Respiratory: no respiratory distress, expiratory wheeze (Mild, with coughing only), No inspiratory crackles Skin: warm, normal color Musculoskeletal: full muscle strength, no muscle tenderness Neurologic: AAOx3, CN II-XII Intact Psychiatric: interacting appropriately, not anxious Lab Data & Imaging Review 06/19/17 20:15 06/19/17 20:15 WBC 10.74 10^3/uL (3.80-9.50) H 06/19/17 20:15 RBC 5.51 10^6/uL (4.40-6.38) 06/19/17 20:15 Hgb 17.7 g/dL (13.7-17.5) H 06/19/17 20:15 Hct 51.1 % (40.0-51.0) H 06/19/17 20:15 MCV 92.7 fL (81.5-99.8) 06/19/17 20:15 MCH 32.1 pg (27.9-34.1) 06/19/17 20:15 MCHC 34.6 g/dL (32.4-36.7) 06/19/17 20:15 RDW 12.1 % (11.5-15.2) 06/19/17 20:15 Plt Count 163 10^3/uL (150-400) 06/19/17 20:15 MPV 10.5 fL (8.7-11.7) 06/19/17 20:15 Neut % (Auto) 80.7 % (39.3-74.2) H 06/19/17 20:15 Lymph % (Auto) 10.0 % (15.0-45.0) L 06/19/17 20:15 [place] % (Auto) 7.9 % (4.5-13.0) 06/19/17 20:15 Eos % (Auto) 0.6 % (0.6-7.6) 06/19/17 20:15 Baso % (Auto) 0.4 % (0.3-1.7) 06/19/17 20:15 Nucleat RBC Rel Count 0.0 % (0.0-0.2) 06/19/17 20:15 Absolute Neuts (auto) 8.68 10^3/uL (1.70-6.50) H 06/19/17 20:15 Absolute Lymphs (auto) 1.07 10^3/uL (1.00-3.00) 06/19/17 20:15 Absolute Monos (auto) 0.85 10^3/uL (0.30-0.80) H 06/19/17 20:15 Absolute Eos (auto) 0.06 10^3/uL (0.03-0.40) 06/19/17 20:15 Absolute Basos (auto) 0.04 10^3/uL (0.02-0.10) 06/19/17 20:15 Absolute Nucleated RBC 0.00 10^3/uL (0-0.01) 06/19/17 20:15 Immature Gran % 0.4 % (0.0-1.1) 06/19/17 20:15 Immature Gran # 0.04 10^3/uL (0.00-0.10) 06/19/17 20:15 PT 13.0 SEC (12.0-15.0) 06/19/17 20:15 INR 0.99 (0.83-1.16) 06/19/17 20:15 D-Dimer 2.46 ug/mLFEU (0.00-0.50) H 06/19/17 20:15 VBG Lactic Acid 1.9 mmol/L (0.7-2.1) 06/19/17 20:15 Sodium 142 mEq/L (134-144) 06/19/17 20:15 Potassium 3.8 mEq/L (3.5-5.2) 06/19/17 20:15 Chloride 97 mEq/L (97-110) 06/19/17 20:15 Carbon Dioxide 31 mEq/l (22-31) 06/19/17 20:15 Anion Gap 14 mEq/L (8-16) 06/19/17 20:15 BUN 13 mg/dL (7-23) 06/19/17 20:15 Creatinine 1.1 mg/dL (0.7-1.3) 06/19/17 20:15 Estimated GFR > 60 06/19/17 20:15 Glucose 106 mg/dL (70-100) H 06/19/17 20:15 Calcium 9.5 mg/dL (8.5-10.4) 06/19/17 20:15 Total Bilirubin 2.2 mg/dL (0.1-1.4) H 06/19/17 20:15 Conjugated Bilirubin 0.1 mg/dL (0.0-0.5) 06/19/17 20:15 Unconjugated Bilirubin 2.1 mg/dL (0.0-1.1) H 06/19/17 20:15 Troponin I 0.029 ng/mL (0.000-0.034) 06/19/17 20:15 NT-Pro-B Natriuret Pep 3970 pg/mL (0-125) H 06/19/17 20:15 Imaging Review: CXR with bronchitis, CTPE reportedly without PE: awaiting final read Visualized and Interpreted EKG results: Yes EKG Interpretation: Positive for: other (Sinus tachycarda) Assessment & Plan Assessment: 67 yo M presents with SOB 2/2 likely COPD exacerbation in the setting of upper respiratory infection. Plan: 1. Presumed COPD with acute exacerbation - Presented with 2 days of URI symptoms accompanying shortness of breath. Mild wheezing and hypoxia noted on admission and some symptomatic improvement with nebulizer treatment. Main differential consideration is CHF exacerbation noting elevated BNP, but I deem this less likely in light of euvolemic physical exam and weight decreased from time of last discharge (84 kg -> 83 kg). - Duonebs scheduled + albuterol PRN - Azithromycin and prednisone x5 days - Patient refusing flu swab so will treat empirically with Tamiflu x5 days - Would likely benefit from controller medications as an outpatient but needs PFTs for formal diagnosis 2. ICM - Admitted in April for CHF exacerbation and discharged with weight of 84 kg. Weight 83 kg on presentation today. Patient has been compliant with BB, ROULA, and diuretics. - Continue home medications 3. CAD - S/p prior [place] and c/b ICM. No chest pain currently, continue home meds. 4. HTN - Continue home meds 5. Hx of ETOH abuse - Patient claims sobriety x3 weeks. 6. Tobacco dependence - Still smoking 1 PPD, service counselor cessation. Diet - Regular Code - Full Ppx - LMWH Dispo - Admit to observation status
[2017-06-19] MEDS: ACETAMINOPHEN 325 MG TAB PO PRN (23:09)
[2017-06-20] MEDS: OSELTAMIVIR PHOSPHATE 75 MG CAP PO SCH ×3 (00:45→17:30)
[2017-06-20 04:47] LABS: % IMMATURE GRANULYOCYTES 0.3 % (0.0-1.1); ABSOLUTE IMMATURE GRANULOCYTES 0.02 10^3/uL (0.00-0.10); ADD DIFF? NO; ADD MORPH? NO; ADD SCAN? NO; ATYPICAL LYMPHOCYTE FLAG 0 (0-99); FRAGMENT RBC FLAG 0 (0-99); HEMATOCRIT 47.7 % (40.0-51.0); HEMOGLOBIN 16.4 g/dL (13.7-17.5); LEFT SHIFT FLG 0 (0-99); LIPEMIA HEMOLYSIS FLAG 90 (0-99); MEAN CELL HEMOGLOBIN 31.6 pg (27.9-34.1); MEAN CELL HEMOGLOBIN CONCENTR. 34.4 g/dL (32.4-36.7); MEAN CELL VOLUME 91.9 fL (81.5-99.8); MEAN PLATELET VOLUME 10.8 fL (8.7-11.7); PLATELET CLUMPS FLAG 0 (0-99); PLATELET COUNT 155 10^3/uL (150-400); RED BLOOD CELL COUNT 5.19 10^6/uL (4.40-6.38); RED CELL DISTRIBUTION WIDTH 12.2 % (11.5-15.2)
[2017-06-20 04:52] LABS: ANION GAP 14 mEq/L (8-16); CALCIUM 9.3 mg/dL (8.5-10.4); CARBON DIOXIDE 27 mEq/l (22-31); CHLORIDE 98 mEq/L (97-110); GLOMERULAR FILTRATION RATE > 60; GLUCOSE 152 mg/dL (70-100); SODIUM 139 mEq/L (134-144)
[2017-06-20] MEDS: IPRATROPIUM/ALBUTEROL 3 ML DEYVIAL IH SCH ×4 (05:59→21:17)
[2017-06-20] MEDS: ENOXAPARIN 40 MG/0.4 ML SYR SC SCH (08:39)
[2017-06-20] MEDS: ACETAMINOPHEN 325 MG TAB PO PRN ×2 (08:39→23:01)
[2017-06-20] MEDS: CARVEDILOL 3.125 MG TAB PO SCH ×2 (08:39→17:30)
[2017-06-20] MEDS: FUROSEMIDE 40 MG TAB PO SCH (08:39)
[2017-06-20] MEDS: ASPIRIN 81 MG CHEWABLE TAB PO SCH (08:39)
[2017-06-20] MEDS: LISINOPRIL 40 MG TAB PO SCH (08:39)
[2017-06-20] MEDS: predniSONE 20 MG TAB PO SCH (08:39)
[2017-06-20] MEDS: AZITHROMYCIN 250 MG TAB PO SCH (08:40)
[2017-06-20] MEDS: SPIRONOLACTONE 25 MG TAB PO SCH (08:40)
--- NOTE | 2017-06-20 10:26 | HOSPPROG ---
Hospitalist Progress Note Assessment/Plan: 67 yo M presents with SOB 2/2 likely COPD exacerbation in the setting of upper respiratory infection. First encounter, chart reviewed. D/W RN. Plan: 1. Presumed COPD with acute exacerbation - Presented with 2 days of URI symptoms accompanying shortness of breath. Mild wheezing and hypoxia Duonebs scheduled + albuterol PRN Azithromycin and prednisone x5 days Patient refusing flu swab so will treat empirically with Tamiflu x5 days Would benefit from controller medications as an outpatient but needs PFTs for formal diagnosis 2. ICM - Admitted in April for CHF exacerbation discharged with weight of 84 kg. Weight 83 kg on presentation today. Patient has been compliant with BB, ROULA, and diuretics. - Continue home medications 3. CAD - S/p prior [place] and c/b ICM. No chest pain currently, continue home meds. 4. HTN - Continue home meds 5. Hx of ETOH abuse - Patient claims sobriety x3 weeks. 6. Tobacco dependence - Still smoking 1 PPD, travel counselor automobile club cessation. 7. AHRF cont O2 Diet - Regular Code - Full Ppx - LMWH Dispo - Change to inpatient status. Still requiring O2 supportive care needed Subjective: Very tired. C/O cough. No CP. Weak. Objective: Vital Signs Temp Pulse Resp BP Pulse Ox 36.3 C 81 20 111/67 91 L 06/20/17 07:22 06/20/17 07:22 06/20/17 07:22 06/20/17 07:22 06/20/17 07:22 Laboratory Results 06/20/17 04:15 06/20/17 04:15 PT 13.0 SEC (12.0-15.0) 06/19/17 20:15 INR 0.99 (0.83-1.16) 06/19/17 20:15 - Physical Exam Constitutional: appears nourished, not in pain, chronically ill appearing Eyes: PERRL, anicteric sclera, EOMI Ears, Nose, Mouth, Throat: moist mucous membranes, hearing normal, ears appear normal Cardiovascular: regular rate and rhythym, No JVD, No edema Respiratory: no rales or rhonchi, reduced air movement, expiratory wheeze Gastrointestinal: normoactive bowel sounds, No tenderness, No ascites Skin: warm, no rashes or abrasions, No mottled Musculoskeletal: normal joint ROM, no joint effusions, generalized weakness Neurologic: AAOx3 Psychiatric: interacting appropriately, not anxious, not encephalopathic, thought process linear ICD10 Worksheet Patient Problems: Problems Problem Status Onset Chronic obstructive pulmonary disease with acute exacerbation Acute Hypoxemia Acute chronic disease mgmt/transitional care Acute Acute exacerbation of congestive heart failure Acute Dyspnea Acute Elevated troponin Acute Pulmonary vascular congestion Acute
--- NOTE | 2017-06-20 11:11 | ASMTCASEMG ---
Living Arrangements What is your living Answers: Alone arrangement? Who do you live with? Type Of Residence What kind of residence do Answers: Homeless you live in? Case Management Evaluation Psychosocial Needs: Answers: Active Substance Abuse Notes: ETOH Discharge Plan Comments Coordination Status Comments Notes: Pt is a 67 y/o man admitted for a COPD exacerbation. Pt is a homeless man that is living out of his van. Pt has o2 needs but reports that it is in his storage unit. [facility] for dyspnea, acute coronary syndromem and CHF. Anticipates that pt will most likely d/c independent when medically ready. CM available for d/c needs. Date Signed: 06/20/2017 11:10 AM Electronically Signed By:CAROLYNE Grubbs
--- NOTE | 2017-06-20 11:12 | PDMN ---
Medical Necessity Medical necessity: C/M review: est. > 2 MN LOS for eval and TX of presumed COPD with acute exacerbation in the setting of upper respiratory infection, acute hypoxic respiratory failure, requiring ongoing Duonebs, oral azithromycin and prednisone, pulse oximetry, supplemental O2, comorbid ICM, 04/2017 hospitalization for CHF exacerbation, CAD S/P prior [place], hypertension, tobacco dependence, hx alcohol abuse per 06/20/2016 Hospitalist progress note.
[2017-06-20 23:00] VITALS: BP 116/79
[2017-06-21] MEDS: IPRATROPIUM/ALBUTEROL 3 ML DEYVIAL IH SCH ×2 (05:43→11:08)
[2017-06-21 05:45] VITALS: RESP 16
[2017-06-21 07:18] VITALS: PULSE 87; TEMP 97.5; O2SAT 90
[2017-06-21] MEDS: ENOXAPARIN 40 MG/0.4 ML SYR SC SCH (08:35)
[2017-06-21] MEDS: LISINOPRIL 40 MG TAB PO SCH (08:36)
[2017-06-21] MEDS: OSELTAMIVIR PHOSPHATE 75 MG CAP PO SCH (08:36)
[2017-06-21] MEDS: ASPIRIN 81 MG CHEWABLE TAB PO SCH (08:37)
[2017-06-21] MEDS: CARVEDILOL 3.125 MG TAB PO SCH (08:37)
[2017-06-21] MEDS: AZITHROMYCIN 250 MG TAB PO SCH (08:37)
[2017-06-21] MEDS: FUROSEMIDE 40 MG TAB PO SCH (08:38)
[2017-06-21] MEDS: predniSONE 20 MG TAB PO SCH (08:38)
[2017-06-21] MEDS: SPIRONOLACTONE 25 MG TAB PO SCH (08:38)
--- NOTE | 2017-06-21 13:22 | GDS ---
[f rep st] DISCHARGE SUMMARY DISCHARGE DIAGNOSES: 1. Acute chronic obstructive pulmonary disease exacerbation. 2. History of coronary artery disease. 3. History of congestive heart failure. 4. Hypertension. 5. Tobacco dependency. 6. Acute hypoxemic respiratory failure. STUDIES AND PROCEDURES DONE: CT angiogram of the chest. PHYSICAL EXAMINATION: GENERAL: The patient is alert. VITAL SIGNS: Afebrile at 36.4, pulse is 87 r espiratory rate 16, blood pressure is 116/79. He is saturating greater than 90% on room air. I have seen and evaluated the patient on the day of discharge. HOSPITAL COURSE: The patient is a 67-year-old male who presented to the emergency room with complain ts of shortness of breath. He was evaluated and diagnosed with: 1. Acute chronic obstructive pulmonary disease exacerbation. During this hospitalization, he has re sponded well to breathing treatments as well as oral prednisone. He has no further wheezing and he f eels significantly better. 2. Upper respiratory infection. The patient was started on azithromycin during this hospital course . Due to adverse drug reaction possibility, I have discharged the patient on Augmentin for a total o f 3 more days. 3. History of congestive heart failure. There were no signs of fluid overload during this hospitali zation and appears to be stable. 4. History of coronary artery disease. The patient will follow in the outpatient setting with his cornelio java swing developer. 5. Hypertension. His home medications have been continued. 6. Acute hypoxemic respiratory failure. This is in the setting of acute illness and has resolved. The patient is not requiring oxygen at the time of disposition. DISPOSITION: He will be discharged independently. He does live out of a van. He does have resource s. He will follow with his primary care physician, Dr. Audie Ferrara, as well as his regular cardiolog ist. There are no pending studies. Discharge. MEDICATIONS: Please refer to EMR form. The patient was provided a prescription for Augmentin 875 p. o. twice daily, as well as Flonase, Tamiflu, and prednisone. TIME SPENT: I spent greater than 35 minutes in the care, coordination, and management of the patient 's disposition. /[id number]/MODL
--- NOTE | 2017-06-21 15:09 | ASDISCHSUM ---
Discharge Information Plan Status:Home with No Needs Medically Cleared to Leave:06/20/2017 Discharge Date:06/21/2017 11:33 AM CM D/C Disposition: ADT D/C Disposition:Home, Routine, Self-Care Projected Discharge Date:06/21/2017 12:00 AM Transportation at D/C: Discharge Delay Reason: Follow-Up Date:06/21/2017 12:00 AM Discharge Slot: Final Diagnosis: Placement Information Patient Contact Information Contact Name:TOBY Relationship: Address: Home Phone: Work Phone: City: Alternate Phone: State/Zip Code: Email: Financial Information Financial Class: Primary Plan Desc:MEDICARE OUTPATIENT Primary Plan Number:[id number] Secondary Plan Desc:MEDICAID [employer] [place] Secondary Plan Number:[id number] Assessment Information [facility] Initial CM Assessment Living Arrangements What is your living Answers: Alone arrangement? Who do you live with? Type Of Residence What kind of residence do Answers: Homeless you live in? Case Management Evaluation Psychosocial Needs: Answers: Active Substance Abuse Notes: ETOH Discharge Plan Comments Coordination Status Comments Notes: Pt is a 67 y/o man admitted for a COPD exacerbation. Pt is a homeless man that is living out of his van. Pt has o2 needs but reports that it is in his storage unit. Pt was recently here at [facility] on 05/21/17 for dyspnea, acute coronary syndromem and CHF. Anticipates that pt will most likely d/c independent when medically ready. CM available for d/c needs. Date Signed: 06/20/2017 11:10 AM Electronically Signed By:CAROLYNE Grubbs Intervention Information Intervention Type:*IM-Signed Date of Service:06/21/2017 10:56 AM Patient Type:Inpatient Staff Member:CAROLYNE Bardales Michelle Hours: Discipline: Severity: Comment: Intervention Type:*Occurence 72 Date of Service:06/19/2017 10:07 PM Patient Type:Inpatient Staff Member:WOLFGANG Diaz, Heaven Hours:0.25 Discipline: Severity:1 (0-1 Hours) Comment:Occ 72 for 06/19/2017 22:07 - 06/20/20 17 10:29 as patient discharged 06/21/2017 10:11 (< 2 MN LOS after patient admission status changed from observation to inpatient)
== END 2017-06-21 11:33 | disposition home or self-care (01) | DRG 190 ==
LOC: F3E 22:20 → OBSVTOIN 06-20 10:29
PROVIDERS: ADMIT Internal Medicine; ATTEND Internal Medicine
DX: J44.1 Chronic obstructive pulmonary disease with (acute) exacerbation (principal); J96.01 Acute respiratory failure with hypoxia; I25.10 Atherosclerotic heart disease of native coronary artery without angina pectoris; I50.9 Heart failure, unspecified; I11.0 Hypertensive heart disease with heart failure; F17.210 Nicotine dependence, cigarettes, uncomplicated; J06.9 Acute upper respiratory infection, unspecified; I25.2 Old myocardial infarction; Z59.0 Homelessness
CPT/HCPCS: 96374; G0378; J1650; J2930; Q9967

== ENCOUNTER 2018-01-01 08:27 | Emergency (ER) | payer OTHER, MEDICAID ==
--- NOTE | 2018-01-01 08:54 | EDPHY ---
H & P Time Seen by Provider: 01/01/18 08:51 HPI/ROS: Chief complaint. Difficulty breathing HPI. 67-year-old male history of COPD presents with 3 days nasal congestion and thinks he has sinus infection. Foul smell with nasal discharge. History of sinus infection. Previous facial trauma with plastic tube always in the upper part of his nose to rebuild that part of his face. He has also had a cough and some shortness of breath. No fever. Itchy rash diffusely on his body for the past several days as well. He has a history of scabies. He lives in a band. No abdominal pain, chest discomfort. ROS Constitutional. no fever/chills, no weakness Eyes. no problems with vision ENT. Congestion Cardiovascular. no chest pain Respiratory. Shortness of breath and cough Abdominal. no abdominal pain, no nausea/vomiting, no diarrhea . no problems urinating MS. no calf pain/swelling, no neck/back pain, no joint pain Skin. Generalized itchy rash especially in groin, around the elbows and behind the knees Lymph. no swollen glands Neuro. no headache, no dizziness, no difficulty walking or with speech Past Medical/Surgical History: Past medical history GA, pneumonia, bronchitis, hypertension, COPD, facial surgery Social History: Single, daily smoker, no alcohol Smoking Status: Heavy smoker Physical Exam: General Appearance: Alert well-developed male mild distress vital signs are stable Eyes: Pupils equal and round no pallor or injection. ENT, tympanic membranes are normal. Looking in the nose I can see a greenish plastic prosthesis in the left upper nostril. No obvious drainage. Pharynx without injection. Mucous membranes are moist Respiratory: No retractions. Inspiratory expiratory rhonchi Cardiovascular: Regular rate and rhythm. Gastrointestinal: Abdomen is soft and nontender, no masses, bowel sounds normal. Neurological: Awake and alert, sensory and motor exams grossly normal. Skin: Maculopapular rash behind both knees, inside elbow shows and inferior to umbilicus Musculoskeletal: Neck is supple nontender. Extremities symmetrical, full range of motion. Psychiatric: Patient is oriented X 3, there is no agitation. Constitutional: Initial Vital Signs Temperature (C) 36.4 C 01/01/18 08:36 Heart Rate 73 01/01/18 08:36 Respiratory Rate 16 01/01/18 08:36 Blood Pressure 118/78 01/01/18 08:36 O2 Sat (%) 96 01/01/18 08:36 O2 Delivery Mode Room Air Allergies/Adverse Reactions: No Known Allergies Allergy (Verified 01/01/18 08:34) Home Medications: Medication Instructions Recorded Nitroglycerin [Nitrostat 0.4 mg 0.4 mg SL PRN PRN 07/17/14 (*)] Albuterol [Proventil Inhaler HFA 1 - 2 puffs IH DAILY PRN 05/21/17 (*)] Aspirin [Aspirin 81mg (*)] 81 mg PO DAILY #30 tab.chew 05/25/17 Carvedilol [Coreg (*)] 3.125 mg PO BIDMEAL #60 tab 05/25/17 Furosemide [Lasix 40 MG (*)] 40 mg PO DAILY #30 tab 05/25/17 Lisinopril [Zestril 40 mg (*)] 40 mg PO DAILY #30 tab 05/25/17 Spironolactone [Aldactone 25 MG 25 mg PO DAILY #30 tab 05/25/17 (*)] Thiamine HCl [Vitamin B-1] 100 mg PO DAILY #30 tab 05/25/17 Acetaminophen [Tylenol 325mg (*)] 650 mg PO Q4HRS PRN tab 06/21/17 Fluticasone Nasal [Flonase Nasal 2 sprays NASAL DAILY #1 mdi 06/21/17 [place] (RX)] Amoxicillin/Clavulanate Pot 875 mg PO BID #14 tab 01/01/18 [Augmentin 875 MG TAB (*)] Permethrin 5% [Elimite 5%] 60 gm TP ONCE #1 cream 01/01/18 predniSONE 40 mg PO DAILY #8 tablet 01/01/18 Medical Decision Making - Diagnostics Imaging Results: Imaging Impressions Chest X-Ray 01/01/18 09:09 Impression: Findings of COPD/emphysema with no superimposed acute abnormality identified. Two view chest x-ray significant for COPD but no evidence of pneumonia. Procedures: Prednisone and Zithromax in the emergency department ED Course/Re-evaluation: Re-evaluation 10:00 a.m.. Patient is stable. The patient and I discussed imaging study results, laboratory evaluation, treatment plan including criteria for return importance of follow-up and further evaluation. He expresses understanding and agreement Differential Diagnosis: I considered COPD exacerbation, pneumonia, sinusitis. For his rash I have considered contact dermatitis as well as scabies. - Data Points Medications Given: Discontinued Medications Azithromycin (Zithromax) 500 mg PO EDNOW ONE PRN Reason: Protocol Stop: 01/01/18 09:09 Last Admin: 01/01/18 09:21 Dose: 500 mg Prednisone (Prednisone) 60 mg PO EDNOW ONE Stop: 01/01/18 09:09 Last Admin: 01/01/18 09:21 Dose: 60 mg Departure - Departure Disposition: Home, Routine, Self-Care Clinical Impression: Chronic obstructive pulmonary disease with acute exacerbation Sinusitis Qualifiers: Sinusitis location: unspecified location Chronicity: acute Recurrence: recurrent Qualified Code(s): J01.91 - Acute recurrent sinusitis, unspecified Condition: Good Instructions: Sinusitis (ED) Additional Instructions: Augmentin twice daily for 1 week for sinusitis and year breathing. Continue Flonase. Prednisone to also help with breathing and sinus Return for worsening symptoms. Recheck in 3-4 days if not improved Permethrin lotion for skin rash. May continue to use 1% hydrocortisone cream for help with itching. Clean bedding and towels. Referrals: NONE *PRIMARY CARE P,. [Primary Care Provider] - As per Instructions [facility] [Outside] - 3-4 days, if not improved Prescriptions: Amoxicillin/Clavulanate Pot [Augmentin 875 MG TAB (*)] 875 mg PO BID #14 tab Permethrin 5% [Elimite 5%] 60 gm TP ONCE #1 cream predniSONE 40 mg PO DAILY #8 tablet
[2018-01-01] MEDS ORDERED: predniSONE 20 MG TAB PO ONE (09:08)
[2018-01-01] MEDS ORDERED: AZITHROMYCIN 250 MG TAB PO ONE (09:08)
[2018-01-01 10:37] VITALS: BP 133/87
== END 2018-01-01 10:38 | disposition home or self-care (01) ==
DX: J01.91 Acute recurrent sinusitis, unspecified (principal); I10 Essential (primary) hypertension; I25.2 Old myocardial infarction; F17.200 Nicotine dependence, unspecified, uncomplicated; J45.901 Unspecified asthma with (acute) exacerbation; Z79.01 Long term (current) use of anticoagulants
CPT/HCPCS: 71046; 99284; J7512

== ENCOUNTER 2018-01-29 13:31 | Emergency (ER) | payer OTHER, MEDICAID ==
[2018-01-29 13:43] VITALS: BP 131/94
[2018-01-29] MEDS ORDERED: predniSONE 20 MG TAB PO ONE (13:52)
[2018-01-29] MEDS ORDERED: INDOMETHACIN 25 MG CAP PO ONE (13:53)
--- NOTE | 2018-01-29 13:55 | EDPHY ---
H & P Time Seen by Provider: 01/29/18 13:45 HPI/ROS: 67-year-old male presents complaining of right elbow pain and swelling intermittently for several months, frustrated that he is unable get pain relief from his medicines and [id number]-[id number] medicines such as ibuprofen and aspirin. He states he has stopped all of his medicines as he feels they are contributing to his gout. Review of systems General no fever no chills no weakness HEENT no eye pain no eye discharge. No eye redness, no sore throat Respiratory no cough, no shortness of breath Cardiac no chest pain, no peripheral edema GI no abdominal pain, no diarrhea, no constipation, no nausea, no vomiting no flank pain, no hematuria, no dysuria Musculoskeletal no myalgias, positive joint pain Heme no easy bruising, no easy bleeding Endo no polyuria, no polydipsia Skin no rashes, no pruritus Neuro no syncope, no dizziness, no headaches Psych is no suicidal ideation, no homicidal ideation Past Medical/Surgical History: Coronary artery disease Hypertension Social History: Denies alcohol or drug use Smoking Status: Heavy smoker Physical Exam: 67-year-old male Alert and oriented in no acute distress nontoxic appearance, afebrile Atraumatic normocephalic Neck no JVD Lungs clear to auscultation, no respiratory distress Heart regular rate and rhythm Extremities no cyanosis clubbing edema except Right elbow full range of motion, hep posterior aspect some erythema and swelling not specifically to the olecranon bursa Distal pulses intact, arm sensation intact Full range of motion at digits wrist elbow and shoulder Constitutional: Initial Vital Signs Temperature (C) 36.7 C 01/29/18 13:35 Heart Rate 88 01/29/18 13:35 Respiratory Rate 18 01/29/18 13:35 Blood Pressure 131/94 H 01/29/18 13:35 O2 Sat (%) 95 01/29/18 13:35 O2 Delivery Mode Room Air Allergies/Adverse Reactions: No Known Allergies Allergy (Verified 01/29/18 13:40) Home Medications: Medication Instructions Recorded Nitroglycerin [Nitrostat 0.4 mg 07/17/14 (*)] Furosemide [Lasix 40 MG (*)] 01/29/18 Indomethacin [Indocin 25 mg (*)] 25 mg PO TID #7 cap 01/29/18 Lisinopril [Zestril 40 mg (*)] 01/29/18 predniSONE 40 mg PO DAILY 4 Days #8 tablet 01/29/18 Medical Decision Making ED Course/Re-evaluation: Patient seen and evaluated for right elbow pain and swelling of several months duration, intermittent in nature. Patient given dose of prednisone 60 mg and Indocin 25 mg Impression Gout, right elbow Plan Prednisone 40 q.day x4 days Indocin 25 three times daily x7 days Patient given extensive education on eating prior to these medicines and not taking any other anti-inflammatories or nonsteroidals. Advised patient to follow up with his primary care physician Differential Diagnosis: Differential diagnosis considered but not limited to: Atypical dermatitis, gout, septic joint, osteoarthritis - Data Points Medications Given: Discontinued Medications Indomethacin (Indocin) 25 mg PO EDNOW ONE Stop: 01/29/18 13:54 Last Admin: 01/29/18 14:02 Dose: 25 mg Prednisone (Prednisone) 60 mg PO EDNOW ONE Stop: 01/29/18 13:53 Last Admin: 01/29/18 14:02 Dose: 60 mg Departure - Departure Disposition: Home, Routine, Self-Care Clinical Impression: Gout attack Condition: Good Instructions: Prednisone (By mouth), Indomethacin (By mouth), Gout (ED) Additional Instructions: Follow up appointment with Dr. Ferrara on FridayFebruary [address] Stevens is out of town. Do not take any other pain medicines while on the Indocin and Prednisone. You may take plain acetaminophen(tylenol) but NO ALLEVE ,ASPIRIN, IBUPROFEN Referrals: Eulalia Stevens MD [Primary Care Provider] - As per Instructions Prescriptions: Indomethacin [Indocin 25 mg (*)] 25 mg PO TID #7 cap predniSONE 40 mg PO DAILY 4 Days #8 tablet
== END 2018-01-29 14:16 | disposition home or self-care (01) ==
LOC: CED 13:31
DX: M10.9 Gout, unspecified (principal); I10 Essential (primary) hypertension; I25.10 Atherosclerotic heart disease of native coronary artery without angina pectoris; F17.200 Nicotine dependence, unspecified, uncomplicated
CPT/HCPCS: 99284; J7512

== ENCOUNTER → 2018-02-11 | Outpatient (CLI) | payer OTHER, MEDICAID | LOC: BHFA 13:00 | PROVIDERS: ATTEND Internal Medicine Cardiovascular Disease | DX: I25.10 Atherosclerotic heart disease of native coronary artery without angina pectoris (principal) ==

== ENCOUNTER 2018-05-18 17:46 | Emergency (ER) | payer OTHER, MEDICAID ==
--- NOTE | 2018-05-18 19:46 | EDPHY ---
H & P Time Seen by Provider: 05/18/18 19:21 HPI/ROS: CHIEF COMPLAINT: "Gout" HISTORY OF PRESENT ILLNESS: The patient is a 6-year-old male who presents emergency department with right leg pain. The patient states his pain initially started in his right ankle but now moved up his right posterior calf behind his knee. Pain is moderate. It is not worse with movement. He reports swelling of his right calf. Patient sees gout symptoms started a few years ago. He initially got gout in his toe but it moved to his ankle and leg. He has had recurrent episodes. Patient denies fevers or chills. No chest pain or shortness of breath. REVIEW OF SYSTEMS: 10 systems were reveiwed and are negative with the exception of the elements mentioned in the history of present illness. Past Medical/Surgical History: Includes acute coronary artery disease, MD, pneumonia, bronchitis, hypertension , COPD, anxiety, scabies, CHF Past surgical history: Includes hernia repair, appendectomy, facial surgery, ankle surgery Social history: Patient smokes. He drinks alcohol. Denies drug use. Smoking Status: Heavy smoker Physical Exam: Vitals noted. Afebrile GENERAL: Well-appearing, in no acute distress, alert. HEENT: Eyes normal to inspection, normal pharynx, no signs of dehydration. NECK: Normal, supple. RESPIRATORY: Clear to auscultation bilaterally, no rales, rhonchi or wheezing. CVS: Regular rate and rhythm, no rubs, murmurs, or gallops. ABDOMEN: Soft, nontender, nondistended, no organomegaly. BACK: Normal to inspection, no CVA tenderness. SKIN: Normal color, no rash, warm, dry. No pallor. EXTREMITIES: Patient has a swollen right calf. The right posterior calf is tender to palpation. No redness or warmth. No cords. No ankle swelling. NEURO/PSYCH: Alert and oriented, normal mood and affect, normal motor sensory exam. Constitutional: Initial Vital Signs Temperature (C) 36.9 C 05/18/18 17:55 Heart Rate 87 05/18/18 17:55 Respiratory Rate 18 05/18/18 17:55 Blood Pressure 133/104 H 05/18/18 17:55 O2 Sat (%) 94 05/18/18 17:55 O2 Delivery Mode Room Air Allergies/Adverse Reactions: Tetanus Vaccines and Toxoid Allergy (Verified 05/18/18 17:57) Home Medications: Medication Instructions Recorded Albuterol [Proventil Inhaler HFA 1 - 2 puffs IH Q4H PRN 02/11/18 (*)] Fluticasone Propionate [Flonase 1 spray NS BID PRN 02/11/18 Allergy Relief] Furosemide [Lasix 40 MG (*)] 40 - 60 mg PO DAILY 02/11/18 Ibuprofen/Diphenhydramine Cit 1 each PO HS PRN 02/11/18 [Advil Pm Caplet] Lisinopril [Zestril 40 mg (*)] 40 mg PO DAILY 02/11/18 Nitroglycerin [Nitrostat 0.4 mg 0.4 mg SL Q5M PRN 02/11/18 (*)] Pravastatin Sodium 40 mg PO DAILY 02/11/18 Apixaban [Eliquis] 5 mg PO BID@0700,1900 #60 tab 02/12/18 Carvedilol [Coreg (*)] 25 mg PO BIDMEAL tab 02/12/18 Medical Decision Making - Diagnostics Imaging Results: Imaging Impressions Extremity Venous Study 05/18/18 19:42 Impression: Positive deep venous thrombosis majority of the right leg. Findings and recommendations discussed with Emergency Department physician, SALLIE BOTELLO at 21:14 hour, 05/18/2018. Final report concurs with initial preliminary interpretation. ED Course/Re-evaluation: In the emergency department I discussed possible etiologies with the patient. I answered all of his questions. Ultrasound of his right calf was ordered. Ultrasound: Patient has a large right lower extremity DVT. I discussed the results with the patient. Laboratory studies were ordered. Heparin initial bolus and drip were ordered. I discussed with Dr. Brownlee. He will admit the patient. Differential Diagnosis: My differential includes but is not limited to DVT, arterial occlusion, gout, cellulitis, abscess, leg pain Departure - Departure Disposition: [facility] Inpatient Acute Clinical Impression: DVT (deep venous thrombosis) Qualifiers: DVT location: lower extremity Affected thrombotic vein of extremity: unspecified vein of extremity Chronicity: acute Laterality: right Qualified Code (s): I82.401 - Acute embolism and thrombosis of unspecified deep veins of right lower extremity Condition: Good Referrals: NONE *PRIMARY CARE P,. [Primary Care Provider] - As per Instructions
[2018-05-18] MEDS ORDERED: NS 500 ML IV ONE (21:16)
[2018-05-18] MEDS ORDERED: HEPARIN/DEXTROSE 500 ML IV ONE (21:24)
[2018-05-18] MEDS ORDERED: HEPARIN 10,000 UNIT/10 ML MDV (1,000 UNIT/ML) IVP ONE (21:24)
[2018-05-18] MEDS ORDERED: ONDANSETRON 4 MG/2 ML VIAL IVP PRN (21:46)
[2018-05-18] MEDS ORDERED: ACETAMINOPHEN 325 MG TAB PO PRN (21:46)
[2018-05-18] MEDS ORDERED: ONDANSETRON DISINTEGRATING 4 MG TAB PO PRN (21:46)
--- NOTE | 2018-05-18 21:49 | PDGENHP ---
History and Physical - Chief Complaint RLE swelling - History of Present Illness Eb Bowie is a 68 yo male with a PMHx of HTN, CAD, Gout, COPD, CHF who presents to [facility] for RLE swelling. He reports that swelling started a few days ago in his R ankle. He thought that this was due to his gout, however the swelling continued to progress up his leg. He has had swelling, redness, and warmth in his RLE. He denies any chest pain, SOB, palpitations, d/c, f/c, n/v. Patient reports that at some point in the past he was supposed to be on Elaquis, he is not sure what the indication is, but he ran out of this medication some time ago. History Information - Allergies/Home Medication List Allergies/Adverse Reactions: Tetanus Vaccines and Toxoid Allergy (Verified 05/18/18 17:57) Home Medications: Albuterol [Proventil Inhaler HFA (*)] 1 - 2 puffs IH Q4H PRN 02/11/18 [Last Taken 02/11/18] Fluticasone Propionate [Flonase Allergy Relief] 1 spray NS BID PRN 02/11/18 [ Last Taken 02/10/18] Furosemide [Lasix 40 MG (*)] 40 - 60 mg PO DAILY 02/11/18 [Last Taken 02/11/18] Ibuprofen/Diphenhydramine Cit [Advil Pm Caplet] 1 each PO HS PRN 02/11/18 [Last Taken 02/09/18] Lisinopril [Zestril 40 mg (*)] 40 mg PO DAILY 02/11/18 [Last Taken 02/11/18] Nitroglycerin [Nitrostat 0.4 mg (*)] 0.4 mg SL Q5M PRN 02/11/18 [Last Taken Unknown] Pravastatin Sodium 40 mg PO DAILY 02/11/18 [Last Taken 02/08/18] I have personally reviewed and updated: family history, medical history, social history, surgical history - Past Medical History coronary artery disease, CHF, hypertension, hyperlipidemia, myocardial infarction - Surgical History Reports: no pertinent surgical hx - Family History Positive for: non-pertinent - Social History Smoking Status: Heavy smoker Review of Systems Review of Systems: ROS: 10pt was reviewed & negative except for what was stated in HPI & below Physical Exam Physical Exam: Temp Pulse Resp BP Pulse Ox 36.9 C 87 18 133/104 H 94 05/18/18 17:55 05/18/18 17:55 05/18/18 17:55 05/18/18 17:55 05/18/18 17:55 Constitutional: chronically ill appearing, unkempt Eyes: PERRL Ears, Nose, Mouth, Throat: moist mucous membranes Cardiovascular: regular rate and rhythym, edema (2+ RLE) Respiratory: no respiratory distress, clear to auscultation Gastrointestinal: soft, non-tender abdomen Genitourinary: no bladder tenderness Skin: warm, erythema Musculoskeletal: pain with ROM Neurologic: AAOx3 Psychiatric: interacting appropriately Assessment & Plan Assessment: RLE DVT (deep venous thrombosis) (Acute) - Presents with RLE swelling, warmth - Denies hx of DVT, although he reports he is supposed to be on Elaquis, unsure of indication - RLE U/S shows DVT majority of RLE - Will start on Heparin gtt - Will place IR consult for possible thrombolysis in the AM - Switch from Heparin gtt to Lovenox vs. oral AC Chronic Medical Conditions: HTN, CAD, Gout, CHF, COPD - Continue home medications after medication reconciliation is complete FEN: PRN, Regular diet, NPO at midnight in case of IR procedure in the AM DVT Ppx: Heparin gtt Code: FULL Dispo: Admit to Observation
[2018-05-18] MEDS ORDERED: HEPARIN 10,000 UNIT/10 ML MDV (1,000 UNIT/ML) IVP PRN (21:56)
[2018-05-18] MEDS ORDERED: HEPARIN/DEXTROSE 500 ML IV SCH (22:00)
[2018-05-18 22:41] LABS: PLATELET COUNT 249 10^3/uL (150-400)
[2018-05-18 22:45] LABS: INR 0.95 (0.83-1.16); PROTIME(PATIENT) 12.9 SEC (12.0-15.0)
--- NOTE | 2018-05-19 09:16 | PDDCSUM ---
Discharge Summary Discharge Summary: Date of Admission: 05/18/2018 Date of Discharge: 05/18/2018 Disposition: AMA discharge from ED Consultants: none Discharge Diagnoses: 1. RLE extensive DVT Brief Hospital Course: 68yo M with history of CAD/CO with ICM, atrial fibrillation who had self- discontinued his anticoagulation who presented with several days of RLE swelling found to have extensive DVT. He was admitted by the hospitalist on a heparin gtt but left AMA from the ED. He did not leave with anticoagulation. I did discuss with interventional radiology on the morning after he left and they would've considered catheter directed thrombolysis. Medications: Please refer to EMR. Physical Exam: Did not perform as patient left AMA. I did review his vitals from the ED, he was not tachycardic or hypoxemic.
[2018-05-19 13:19] VITALS: BP 128/95
--- NOTE | 2018-05-19 13:26 | ASMTLACE ---
ELISA Acuity / Level of Answers: Yes Care: Did the patient have an inpatient admission? Comorbidities - select Answers: Chronic pulmonary disease all that apply Congestive heart failure Connective tissue disease Previous myocardial infarction Other Notes: HTN # of Emergency department Answers: 3-4 visits in the last 6 months Social determinants Answers: Mental health diagnosis (anxiety, depression, pers onality disorders, etc.) Score: 18 Date Signed: 05/19/2018 01:26 PM Electronically Signed By:Yanira Nichols
== END 2018-05-18 21:26 | disposition left against medical advice (07) ==
LOC: UNDOADMOB 21:26 → F1N 05-19 13:04
DX: I82.401 Acute embolism and thrombosis of unspecified deep veins of right lower extremity (principal); I25.10 Atherosclerotic heart disease of native coronary artery without angina pectoris; I11.0 Hypertensive heart disease with heart failure; I50.9 Heart failure, unspecified; J44.9 Chronic obstructive pulmonary disease, unspecified; F17.200 Nicotine dependence, unspecified, uncomplicated
CPT/HCPCS: 93971; 96374; 96375; 99285; J1644

== ENCOUNTER 2018-05-19 09:31 | Inpatient (IN) | payer OTHER, MEDICAID ==
--- NOTE | 2018-05-19 10:51 | EDPHY ---
H & P Stated Complaint: poss DVT Source: Patient, Old records Exam Limitations: No limitations - Personal History Current Tetanus/Diphtheria Vaccine: Unsure Current Tetanus Diphtheria and Acellular Pertussis (TDAP): Unsure Tetanus Vaccine Date: within 10 years - Medical/Surgical History Hx Asthma: No Hx Chronic Respiratory Disease: Yes Hx Diabetes: No Hx Cardiac Disease: Yes Hx Renal Disease: No Hx Cirrhosis: No Hx Alcoholism: Yes Hx HIV/AIDS: No Hx Splenectomy or Spleen Trauma: No Other PMH: PR, PNA, Bronchitis, HTN, hernia repair, appendectomy, facial surgery , plastic surgery, COPD, anxiety, fx ankles, scabies, CHF, CAD, collapsed artery - Social History Smoking Status: Heavy smoker Time Seen by Provider: 05/19/18 10:50 HPI/ROS: HPI: This is a 60-year-old male who presents with Chief Complaint: Possible right leg blood clot Location: Right lower leg Quality: blood clot Duration: 5 days Signs and Symptoms: No bleeding, no radiation, no numbness, no weakness, no tingling, no incontinence, no decreased range of motion, + swelling, + pain, no fever Timing: Gradually worsening Severity: Moderate Context: Patient has a history of coronary artery disease, PR, atrial fibrillation, who took himself off of Eliquis, followed by Dr. Jericho Morris, presents to the emergency room again with complaints of right lower extremity blood clot. Patient was seen in their emergency room last night diagnosed with extensive blood clot in the right lower extremity OB ultrasound which I have reviewed. He was started on heparin drip and admitted to the hospitalist service but signed out AMA and discharge from the emergency department. Hospitalist no reports that they did discuss with interventional Radiology and that he would of been considered for catheter directed thrombolysis. I did discuss this with patient and he is open to this. Patient took Eliquis pill last night and this morning. Modifying Factors: See above Comment: ROS: A comprehensive 10 system review of systems is otherwise negative aside from elements mentioned in the history of present illness. MEDICAL/SURGICAL/SOCIAL HISTORY: Medical/surgical history: PR, PNA, Bronchitis, HTN, hernia repair, appendectomy , facial surgery, plastic surgery, COPD, anxiety, fx ankles, scabies, CHF, CAD, collapsed artery Social history: Retired. Lives in his van. Smoker. CONSTITUTIONAL: Polite and cooperative, elderly white male, awake and alert, no obvious distress HEENT: Atraumatic and normocephalic, PERRL, EOMI. Nares patent; no rhinorrhea; no nasal mucosal edema. Tympanic membranes clear. Oropharynx clear, no exudate and moist pink mucosa. Airway patent. No lymphadenopathy. No meningismus. Cardiovascular: Normal S1/S2, regular rate, regular rhythm, without murmur rub or gallop. PULMONARY/CHEST: Symmetrical and nontender. Clear to auscultation bilaterally. Good air movement. No accessory muscle usage. ABDOMEN: Soft, nondistended, nontender, no rebound, no guarding, no peritoneal signs, no masses or organomegaly. No CVAT. EXTREMITIES: 2/2 pulses, strength 5/5, no deformities, no clubbing, no cyanosis. Right lower extremity is twice the size of the left lower extremity. Positive Homans sign. Shininess to the skin with pitting edema. NEUROLOGICAL: no focal neuro deficits. GCS 15. SKIN: Warm and dry, no erythema. no rash. Good capillary refill. (Stephania Orozco) Constitutional: Initial Vital Signs Temperature (C) 36.7 C 05/19/18 09:48 Heart Rate 80 05/19/18 09:48 Respiratory Rate 16 05/19/18 09:48 Blood Pressure 137/104 H 05/19/18 09:48 O2 Sat (%) 95 05/19/18 09:48 O2 Delivery Mode Room Air Allergies/Adverse Reactions: Tetanus Vaccines and Toxoid Allergy (Verified 05/19/18 09:47) Home Medications: Medication Instructions Recorded Albuterol [Proventil Inhaler HFA 1 - 2 puffs IH Q4H PRN 02/11/18 (*)] Fluticasone Propionate [Flonase 1 spray NS BID PRN 02/11/18 Allergy Relief] Furosemide [Lasix 40 MG (*)] 40 - 60 mg PO HS 02/11/18 Ibuprofen/Diphenhydramine Cit 1 each PO HS PRN 02/11/18 [Advil Pm Caplet] Lisinopril [Zestril 40 mg (*)] 40 mg PO DAILY 02/11/18 Nitroglycerin [Nitrostat 0.4 mg 0.4 mg SL Q5M PRN 02/11/18 (*)] Carvedilol [Coreg (*)] 25 mg PO BIDMEAL tab 02/12/18 Medical Decision Making ED Course/Re-evaluation: Vital signs reviewed and stable. No signs of hypoxia, tachycardia. Placed on supervisor roving department. IV access and laboratory studies obtained. Given heparin bolus started on heparin drip due to extensive clot formation. No signs of neurovascular compromise/tenting of skin/compartment syndrome/ extremities and joints examined above and below area of concern and are neurovascularly intact. I-STAT shows INR 1.22, PTT 15.6, H&H 15.6/46, creatinine 1.0 ED decision to consult hospitalist. Spoke with Ermelinda who kindly agrees to admit patient back to Dr. Medina. This patient was seen under the supervision of my secondary supervising physician. I evaluated care for this patient independently. Discussed this patient with Dr. Arnold. (Stephania Orozco) I did not see this patient while he was in the emergency department. However his care was discussed with the PA while the patient was in the department. I agree with treatment plan and management (Christ Arnold) Differential Diagnosis: Leg swelling including but not limited to hypoalbuminemia, congestive heart failure, cor pulmonale, chronic venous stasis and DVT. (Stephania Orozco) - Data Points Medications Given: Discontinued Medications Heparin Sodium (Porcine) (Heparin Injection) 5,000 unit IVP EDNOW ONE Stop: 05/19/18 11:02 Last Admin: 05/19/18 11:39 Dose: 5,000 units Heparin Sodium (Porcine) (Heparin 50 Units/Ml (Premix)) 500 mls @ 0 mls/hr IV CONT GABE; As Directed PRN Reason: Protocol Stop: 11/15/18 11:14 Last Admin: 05/19/18 11:44 Dose: 500 mls Departure - Departure Disposition: [facility] Inpatient Acute Clinical Impression: Acute deep vein thrombosis (DVT) of right lower extremity Qualifiers: Affected thrombotic vein of extremity: unspecified lower extremity distal vein Qualified Code(s): I82.4Z1 - Acute embolism and thrombosis of unspecified deep veins of right distal lower extremity Condition: Fair
[2018-05-19] MEDS ORDERED: HEPARIN 10,000 UNIT/10 ML MDV (1,000 UNIT/ML) IVP ONE (11:01)
[2018-05-19] MEDS ORDERED: HEPARIN/DEXTROSE 500 ML IV SCH ×3 (11:15→17:45)
[2018-05-19 11:43] LABS: INR 1.22 (0.83-1.16); PROTIME(PATIENT) 15.6 SEC (12.0-15.0)
[2018-05-19] MEDS ORDERED: ACETAMINOPHEN 325 MG TAB PO PRN (12:13)
[2018-05-19] MEDS ORDERED: oxyCODONE IR 5 MG TAB PO PRN (12:13)
[2018-05-19] MEDS ORDERED: ONDANSETRON 4 MG/2 ML VIAL IVP PRN (12:13)
[2018-05-19] MEDS ORDERED: ONDANSETRON DISINTEGRATING 4 MG TAB PO PRN (12:13)
[2018-05-19] MEDS ORDERED: ALBUTEROL 60 PUFFS/8 GM MDI IH PRN (12:15)
[2018-05-19] MEDS ORDERED: HEPARIN 10,000 UNIT/10 ML MDV (1,000 UNIT/ML) IVP PRN (12:52)
[2018-05-19 13:15] LABS: PLATELET COUNT 229 10^3/uL (150-400)
--- NOTE | 2018-05-19 14:03 | PDGENHP ---
History and Physical - Chief Complaint RLE DVT - History of Present Illness 68yo M with history of CAD/MA with ICM, atrial fibrillation not on anticoagulation (self-discontinued) presents with RLE DVT. Came to ED yesterday with 3 days of right leg swelling at which time he was diagnosed and started on heparin gtt and admitted by hospitalist. Patient left AMA from ED because he was upset for unclear reasons. Returned today after taking a dose of his eliquis last night. Denies numbness in leg, dyspnea, chest pain, dizziness. Never had clot before. No recent surgeries or history of CVA. In the ED, heparin gtt was restarted and he was admitted. History Information - Allergies/Home Medication List Allergies/Adverse Reactions: Tetanus Vaccines and Toxoid Allergy (Verified 05/19/18 09:47) Home Medications: Albuterol [Proventil Inhaler HFA (*)] 1 - 2 puffs IH Q4H PRN 02/11/18 [Last Taken 05/18/18] Fluticasone Propionate [Flonase Allergy Relief] 1 spray NS BID PRN 02/11/18 [ Last Taken 02/10/18] Furosemide [Lasix 40 MG (*)] 40 - 60 mg PO HS 02/11/18 [Last Taken 05/17/18] Ibuprofen/Diphenhydramine Cit [Advil Pm Caplet] 1 each PO HS PRN 02/11/18 [Last Taken 05/17/18] Lisinopril [Zestril 40 mg (*)] 40 mg PO DAILY 02/11/18 [Last Taken 05/18/18] Nitroglycerin [Nitrostat 0.4 mg (*)] 0.4 mg SL Q5M PRN 02/11/18 [Last Taken ] I have personally reviewed and updated: family history, medical history, social history, surgical history - Past Medical History atrial fibrillation, coronary artery disease, CHF, hypertension, hyperlipidemia , myocardial infarction Additional medical history: gout, moderate mitral regurgitation - Surgical History Reports: no pertinent surgical hx - Family History Additional family history: adopted - Social History Smoking Status: Heavy smoker Alcohol Use: Occasionally (not everyday drinker) Drug Use: Marijuana Additional social history: Lives in van (has lived in for last 8 years), retired Review of Systems Review of Systems: ROS: 10pt was reviewed & negative except for what was stated in HPI & below Physical Exam Physical Exam: Temp Pulse Resp BP Pulse Ox 36.3 C 72 14 128/95 H 90 L 05/19/18 12:59 05/19/18 12:59 05/19/18 12:59 05/19/18 12:59 05/19/18 12:59 Constitutional: no apparent distress, appears nourished, not in pain Eyes: PERRL, anicteric sclera, EOMI Ears, Nose, Mouth, Throat: moist mucous membranes, hearing normal, ears appear normal, no oral mucosal ulcers Cardiovascular: regular rate and rhythym, no murmur, rub, or gallop, pulses symmetric bilaterally, edema (RLE edema) Respiratory: no respiratory distress, no rales or rhonchi, clear to auscultation Gastrointestinal: normoactive bowel sounds, soft, non-tender abdomen, no palpable masses Genitourinary: no bladder fullness, no bladder tenderness Skin: warm, normal color, no rashes or abrasions, no fluctuance, no induration, No mottled Musculoskeletal: full muscle strength, no muscle tenderness, normal joint ROM, no joint effusions Neurologic: AAOx3 Psychiatric: interacting appropriately, not anxious, not encephalopathic, thought process linear Lab Data & Imaging Review 05/19/18 11:10 05/19/18 11:10 WBC 8.21 10^3/uL (3.80-9.50) 05/19/18 11:10 RBC 4.79 10^6/uL (4.40-6.38) 05/19/18 11:10 Hgb 14.9 g/dL (13.7-17.5) 05/19/18 11:10 POC Hgb 15.6 gm/dL (13.7-17.5) 05/19/18 11:19 Hct 45.1 % (40.0-51.0) 05/19/18 11:10 POC Hct 46 % (40-51) 05/19/18 11:19 MCV 94.2 fL (81.5-99.8) 05/19/18 11:10 MCH 31.1 pg (27.9-34.1) 05/19/18 11:10 MCHC 33.0 g/dL (32.4-36.7) 05/19/18 11:10 RDW 13.6 % (11.5-15.2) 05/19/18 11:10 Plt Count 229 10^3/uL (150-400) 05/19/18 11:10 MPV 11.9 fL (8.7-11.7) H 05/19/18 11:10 Neut % (Auto) 59.6 % (39.3-74.2) 05/19/18 11:10 Lymph % (Auto) 25.6 % (15.0-45.0) 05/19/18 11:10 [place] % (Auto) 10.7 % (4.5-13.0) 05/19/18 11:10 Eos % (Auto) 3.5 % (0.6-7.6) 05/19/18 11:10 Baso % (Auto) 0.4 % (0.3-1.7) 05/19/18 11:10 Nucleat RBC Rel Count 0.0 % (0.0-0.2) 05/19/18 11:10 Absolute Neuts (auto) 4.89 10^3/uL (1.70-6.50) 05/19/18 11:10 Absolute Lymphs (auto) 2.10 10^3/uL (1.00-3.00) 05/19/18 11:10 Absolute Monos (auto) 0.88 10^3/uL (0.30-0.80) H 05/19/18 11:10 Absolute Eos (auto) 0.29 10^3/uL (0.03-0.40) 05/19/18 11:10 Absolute Basos (auto) 0.03 10^3/uL (0.02-0.10) 05/19/18 11:10 Absolute Nucleated RBC 0.00 10^3/uL (0-0.01) 05/19/18 11:10 Immature Gran % 0.2 % (0.0-1.1) 05/19/18 11:10 Immature Gran # 0.02 10^3/uL (0.00-0.10) 05/19/18 11:10 PT 15.6 SEC (12.0-15.0) H 05/19/18 11:10 INR 1.22 (0.83-1.16) H 05/19/18 11:10 APTT 36.6 SEC (23.0-38.0) 05/19/18 11:10 POC Sodium 142 mEq/L (135-145) 05/19/18 11:19 Sodium 141 mEq/L (135-145) 05/19/18 11:10 POC Potassium 3.6 mEq/L (3.3-5.0) 05/19/18 11:19 Potassium 4.0 mEq/L (3.3-5.0) 05/19/18 11:10 POC Chloride 101 mEq/L (97-110) 05/19/18 11:19 Chloride 103 mEq/L (97-110) 05/19/18 11:10 Carbon Dioxide 30 mEq/l (22-31) 05/19/18 11:10 Anion Gap 8 mEq/L (6-14) 05/19/18 11:10 POC BUN 15 mg/dL (7-23) 05/19/18 11:19 BUN 17 mg/dL (7-23) 05/19/18 11:10 Creatinine 1.0 mg/dL (0.7-1.3) 05/19/18 11:10 POC Creatinine 1.1 mg/dL (0.7-1.3) 05/19/18 11:19 Estimated GFR > 60 05/19/18 11:10 Glucose 104 mg/dL (70-100) H 05/19/18 11:10 POC Glucose 104 mg/dL (70-100) H 05/19/18 11:19 Calcium 8.7 mg/dL (8.5-10.4) 05/19/18 11:10 Assessment & Plan Assessment: 68yo M with history of CAD/MA with ICM, atrial fibrillation not on anticoagulation (self-discontinued) presents with extensive RLE DVT. Plan: #Acute RLE DVT: 1st VTE. Appears unprovoked. - Heparin gtt - Consult IR for possible catheter directed thrombolysis (I had discussed with IR this AM prior to knowing that patient had previously left AMA and they were agreeable) - Discuss oral anticoagulation options pending procedure - Recommend age appropriate cancer screening as outpatient #Atrial fibrillation: Diagnosed 01/2018. Appears to be regular on exam today. - Was previously on eliquis but this was self-discontinued - Continue coreg #CAD/MA: Had occluded LCx on 05/2017 cath, no anginal sxs currently. - Continue statin, not on aspirin with AC #ICM: LVEF 45%. Compensated - Continue BB, ACEi, holding lasix for now #EtOH use: No h/o withdrawal but at risk - Monitor for withdrawal #Tobacco use: Encouraged cessation. #Gout: No acute flare. Diet: NPO until discuss with IR re: procedure VTE ppx: therapeutic anticoagulation Code: full Dispo: Admit as inpatient
--- NOTE | 2018-05-19 14:26 | ASMTLACE ---
ELISA Acuity / Level of Answers: Yes Care: Did the patient have an inpatient admission? Comorbidities - select Answers: Chronic pulmonary disease all that apply Congestive heart failure Coronary Artery Disease Previous myocardial infarction Other Notes: AFib; HTN; DVT # of Emergency department Answers: 3-4 visits in the last 6 months Social determinants Answers: Mental health diagnosis (anxiety, depression, pers onality disorders, etc.) Score: 17 Date Signed: 05/19/2018 02:26 PM Electronically Signed By:Yanira Nichols
--- NOTE | 2018-05-19 15:08 | PDMN ---
Medical Necessity Medical necessity: Pt meets IP criteria per MD and MCG M-350; est los >2 mn for eval and tx of RLE DVT; requiring heparin gtt and possible thrombolysis; Comorbids Afib, CAD/AZ, alcohol abuse; per order and H&P 05/19/2018
[2018-05-19] MEDS ORDERED: FLUMAZENIL 0.5 MG/5 ML MDV IVP PRN (16:10)
[2018-05-19] MEDS ORDERED: NALOXONE HCL 0.4 MG/ML INJ IVP PRN (16:10)
[2018-05-19] MEDS ORDERED: MIDAZOLAM 2 MG/2 ML VIAL IVP PRN (16:10)
[2018-05-19] MEDS ORDERED: fentaNYL 100 MCG/2 ML INJ IVP PRN (16:10)
[2018-05-19] MEDS ORDERED: ALTEPLASE 2 MG VIAL IVP PRN (16:10)
[2018-05-19] MEDS ORDERED: MEPERIDINE 25 MG/ML SYR IVP PRN (16:10)
[2018-05-19] MEDS ORDERED: IOPAMIDOL (ISOVUE-300) 100 ML BTL ONE (16:26)
[2018-05-19] MEDS ORDERED: LIDOCAINE 1% 300 MG/30 ML SDV ONE (16:26)
[2018-05-19] MEDS ORDERED: HEPARIN/DEXTROSE 500 ML IV ONE (17:30)
[2018-05-19] MEDS ORDERED: ALTEPLASE 5 MG in NS 100 ML IV ONE (17:30)
[2018-05-19] MEDS ORDERED: LORazepam 1 MG TAB PO PRN (17:39)
[2018-05-19] MEDS ORDERED: PROMETHAZINE HCL 25 MG/ML INJ IVP PRN (17:39)
--- NOTE | 2018-05-19 17:39 | PDPROPOC ---
Sedation Plan of Care ASA Classification: ASA 2 Mallampati Score: Class 2 Mallampati Reference Image:
--- NOTE | 2018-05-19 17:47 | PDRADPN ---
Radiology Procedure Note Date of Procedure: 05/19/18 Radiologist: Geoff Aranda Anesthesia: IV Sedation Pre-op Diagnosis: RLE DVT Post-op Diagnosis: Same Procedure: Day 1 lysis Inf/Abcess present in the surg proc area at time of surgery?: No
[2018-05-19] MEDS: CARVEDILOL 25 MG TAB PO SCH (19:36)
[2018-05-19] MEDS ORDERED: LORazepam 2 MG/ML INJ ONE (20:05)
[2018-05-19] MEDS ORDERED: LORazepam 2 MG/ML INJ IVP ONE (20:15)
[2018-05-19] MEDS ORDERED: FLUTICASONE NASAL 120 SPRAYS/16 GM MDI EACHNARE PRN (21:00)
[2018-05-19] MEDS: ALTEPLASE 5 MG in NS 100 ML IV SCH (21:34)
[2018-05-19] MEDS: DEXMEDETOMIDINE HCL 400 MCG in NS 100 ML IV SCH (21:34)
[2018-05-20] MEDS: LORazepam 2 MG/ML INJ IVP PRN ×4 (00:02→21:00)
[2018-05-20] MEDS: DEXMEDETOMIDINE HCL 400 MCG in NS 100 ML IV SCH ×6 (01:28→22:14)
[2018-05-20] MEDS: ALTEPLASE 5 MG in NS 100 ML IV SCH ×4 (02:35→16:46)
[2018-05-20 04:16] LABS: PLATELET COUNT 204 10^3/uL (150-400)
[2018-05-20] MEDS: LISINOPRIL 40 MG TAB PO SCH (08:36)
[2018-05-20] MEDS: CARVEDILOL 25 MG TAB PO SCH (08:36)
[2018-05-20] MEDS: PRAVASTATIN SODIUM 40 MG TAB PO SCH (08:37)
[2018-05-20] MEDS: LORazepam 2 MG/ML INJ IVP SCH ×3 (14:53→23:51)
--- NOTE | 2018-05-20 15:36 | HOSPPROG ---
Hospitalist Progress Note Assessment/Plan: 68yo M with history of CAD/[place] with ICM, atrial fibrillation not on anticoagulation (self-discontinued) admitted on 05/19 with extensive RLE DVT now s/p thrombolysis #Acute RLE DVT: 1st VTE. Appears unprovoked. - Heparin gtt - thrombolysis per IR - Discuss oral anticoagulation options pending procedure - Recommend age appropriate cancer screening as outpatient #Agitation: better with Ativan. Sleeping currently #Atrial fibrillation: Diagnosed 01/2018. Appears to be regular on exam today. - Was previously on eliquis but this was self-discontinued - meds held due to NPO. Will start IV Metoprolol #CAD/NV: Had occluded LCx on 05/2017 cath, no anginal sxs currently. - Continue statin, not on aspirin with AC #ICM: LVEF 45%. Compensated - Continue BB, ACEi, once able to tolerate PO. for now IV BB per above. holding lasix for now #EtOH use: Agitation per above. Cont Benzo's. #Tobacco use: Encouraged cessation. #Gout: No acute flare. Diet: NPO until discuss with IR re: procedure VTE ppx: therapeutic anticoagulation Code: full Dispo: cont inpatient Subjective: Agitation earlier, now better. Sleeping Objective: Vital Signs Temp Pulse Resp BP Pulse Ox 36.8 C 73 24 H 125/89 H 94 05/20/18 11:58 05/20/18 15:00 05/20/18 15:00 05/20/18 15:00 05/20/18 15:00 Laboratory Results 05/20/18 04:00 05/19/18 11:10 05/19/18 05/20/18 05/21/18 05:59 05:59 05:59 Intake Total 1176 Output Total 350 Balance 826 PT 15.6 SEC (12.0-15.0) H 05/19/18 11:10 INR 1.22 (0.83-1.16) H 05/19/18 11:10 - Physical Exam Constitutional: no apparent distress Eyes: PERRL Ears, Nose, Mouth, Throat: moist mucous membranes Cardiovascular: regular rate and rhythym, No edema Respiratory: no respiratory distress, no rales or rhonchi, clear to auscultation Gastrointestinal: normoactive bowel sounds Skin: warm Lymph, Heme, Immunologic: No petechiae ICD10 Worksheet Patient Problems: Problems Problem Status Onset Acute deep vein thrombosis (DVT) of right lower extremity Acute Acute exacerbation of congestive heart failure Acute Chronic obstructive pulmonary disease with acute exacerbation Acute DVT (deep venous thrombosis) Acute Dyspnea Acute Elevated troponin Acute Hypoxemia Acute Pulmonary vascular congestion Acute chronic disease mgmt/transitional care Acute
[2018-05-20] MEDS: METOPROLOL TARTRATE 5 MG/5 ML INJ IVP SCH ×2 (15:42→22:11)
[2018-05-20] MEDS ORDERED: NS W/ 20 KCl/L 1,000 ML IV SCH (15:45)
--- NOTE | 2018-05-20 15:46 | ASMTCASEMG ---
Living Arrangements What is your living Answers: Alone arrangement? Who do you live with? Type Of Residence What kind of residence do Answers: Homeless you live in? Discharge Plan Comments Coordination Status Comments Notes: Patient is a 68yo single, homeless, male with a hx of CAD/[place] with ICM, atrial fibrillation not on anticoagulation. Patient is being admitted for acute RLE DVT, AFIB, CAD/[place], ICM, ETOH use and gout. Patient did leave the ED AMA after treatment had been started for unknown reasons. He was admitted when he returned to the ED for right leg swelling. No therapies have been ordered at this time. Patient does live in his van and has both Medicaid and Medicare. D/C needs TBD. CM will follow. Date Signed: 05/20/2018 03:45 PM Electronically Signed By:Niki Roberts LCSW
[2018-05-21] MEDS: DEXMEDETOMIDINE HCL 400 MCG in NS 100 ML IV SCH ×2 (03:45→05:33)
[2018-05-21 04:49] LABS: PLATELET COUNT 194 10^3/uL (150-400)
[2018-05-21] MEDS: LORazepam 2 MG/ML INJ IVP SCH ×3 (05:33→18:18)
[2018-05-21] MEDS: METOPROLOL TARTRATE 5 MG/5 ML INJ IVP SCH ×3 (11:02→22:36)
[2018-05-21] MEDS ORDERED: HEPARIN 10,000 UNIT/10 ML MDV (1,000 UNIT/ML) IVP PRN (11:04)
[2018-05-21] MEDS ORDERED: HEPARIN 10,000 UNIT/10 ML MDV (1,000 UNIT/ML) IVP ONE (11:04)
[2018-05-21] MEDS: PRAVASTATIN SODIUM 40 MG TAB PO SCH (11:04)
[2018-05-21] MEDS: HEPARIN/DEXTROSE 500 ML IV SCH (11:38)
[2018-05-21 11:40] LABS: PLATELET COUNT 215 10^3/uL (150-400)
[2018-05-21 11:47] LABS: INR 1.13 (0.83-1.16); PROTIME(PATIENT) 14.7 SEC (12.0-15.0)
[2018-05-21] MEDS ORDERED: FLUMAZENIL 0.5 MG/5 ML MDV IVP PRN ×2 (12:20→16:49)
[2018-05-21] MEDS: LORazepam 2 MG/ML INJ IVP PRN ×2 (12:34→14:44)
[2018-05-21] MEDS: THIAMINE HCL 500 MG in NS 100 ML IV SCH (12:44)
--- NOTE | 2018-05-21 12:52 | HOSPPROG ---
Hospitalist Progress Note Assessment/Plan: 68yo M with history of CAD/[place] with ICM, atrial fibrillation previously on anticoagulation (self-discontinued) admitted on 05/19 with extensive RLE DVT now s/p thrombolysis #Acute RLE DVT: 1st VTE. Appears unprovoked. - thrombolysis completed per IR - Unclear why Heparin was not restarted last night. Restart now - He will need oral anticoagulation but we will wait until cognition is better prior to decision on this. #Acute ETOH WD -stop Precedex today -restart Ativan/CIWA -somewhat sedated currently so will hold on long acting Benzo's; although he may need them pending course #Agitation: better with Ativan. Sleeping currently #paroxysma Atrial fibrillation: Diagnosed 01/2018. -currently on IV Metoprolol. Can change back to oral once taking oral #Pedal edema and hypoxemia -suspect volume overload. will obtain a CXR and consider diuretics pending XR results #CAD/MN: Had occluded LCx on 05/2017 cath, no anginal sxs currently. - Continue statin #HTN: acute on chronic -cont BB per above. ROULA-I can will be restarted. #ICM: LVEF 45%. Compensated - Continue BB, ACEi #Tobacco use: #Gout: No acute flare. #Encephalopathy due to ETOH WD and sedation Diet: regular VTE ppx: therapeutic anticoagulation Code: full Dispo: cont inpatient total critical time spent on this pt with acute ETOH WD with significant symptoms and Acute DVT is 35min. D/W pharmacy and nursing at bedside. Will follow CXR Subjective: awake. confused Objective: Vital Signs Temp Pulse Resp BP Pulse Ox 38.1 C 91 20 168/101 H 93 05/21/18 12:30 05/21/18 12:30 05/21/18 12:30 05/21/18 12:30 05/21/18 12:30 Laboratory Results 05/21/18 11:30 05/21/18 04:30 05/20/18 05/21/18 05/22/18 05:59 05:59 05:59 Intake Total 1176 2563 Output Total 350 900 150 Balance 826 1663 -150 PT 14.7 SEC (12.0-15.0) 05/21/18 11:30 INR 1.13 (0.83-1.16) 05/21/18 11:30 - Physical Exam Constitutional: no apparent distress Eyes: PERRL Ears, Nose, Mouth, Throat: moist mucous membranes, hearing normal, ears appear normal Cardiovascular: regular rate and rhythym, edema (trace pedal edema) Respiratory: no respiratory distress, rhonchi Gastrointestinal: normoactive bowel sounds Genitourinary: no bladder fullness Skin: warm Neurologic: No AAOx3 Psychiatric: encephalopathic Lymph, Heme, Immunologic: No petechiae ICD10 Worksheet Patient Problems: Problems Problem Status Onset Acute deep vein thrombosis (DVT) of right lower extremity Acute Acute exacerbation of congestive heart failure Acute Chronic obstructive pulmonary disease with acute exacerbation Acute DVT (deep venous thrombosis) Acute Dyspnea Acute Elevated troponin Acute Hypoxemia Acute Pulmonary vascular congestion Acute chronic disease mgmt/transitional care Acute
[2018-05-21] MEDS ORDERED: AMIODARONE HCL 200 ML IV ONE (13:19)
[2018-05-21] MEDS ORDERED: AMIODARONE HCL 100 ML IV ONE (13:19)
[2018-05-21] MEDS ORDERED: FUROSEMIDE 40 MG/4 ML VIAL IVP ONE (13:21)
--- NOTE | 2018-05-21 13:28 | GCON ---
[employer] SAL[employer] CONSULTATION REASON FOR ADMISSION: Extensive DVT. HISTORY OF PRESENT ILLNESS: The patient is a 68-year-old male with an extensive past medical history , including atrial fibrillation, congestive heart failure, hypertension, coronary artery disease with a myocardial infarction, and hyperlipidemia. He was not on anticoagulation for his atrial fibrillat ion, and he discontinued this himself. He presented with a right lower extremity DVT. He was taken to Interventional Radiology, and he underwent localized tPA. He was subsequently admitted to the int ensive care unit. Upon arrival to the intensive care unit, he became somewhat agitated, felt to be s econdary to his alcohol use. Currently, he is sedated on CIWA protocol. REVIEW OF SYSTEMS: Ten-point review of systems is attempted but unable to perform secondary to alter ed mental status. ALLERGIES: Tetanus. PAST MEDICAL HISTORY: As above. FAMILY HISTORY: Noncontributory. SOCIAL HISTORY: He has heavy tobacco use, unknown alcohol use, though it seems excessive. He also u ses marijuana. He is homeless, lives in a van. He is retired. PHYSICAL EXAM: VITAL SIGNS: Blood pressure 168/101, pulse 91, respirations 20, temperature 38.1, ox ygen saturation 93% on 3 L. GENERAL: He is a well-developed 68-year-old male who is somewhat sedate d but resting comfortably. HEENT: Eyes: PERRLA, EOMI. Throat shows no erythema or tonsillar hypert rophy. NECK: Supple. No cervical adenopathy. HEART: Regular rate and rhythm, with a 2/6 systolic murmur, left sternal border, without radiation. LUNGS: Diminished breath sounds, but no wheeze. A BDOMEN: Soft, nontender. Bowel sounds are present. EXTREMITIES: No clubbing, cyanosis, or edema. LABORATORIES: White count is 9.5, hemoglobin of 12, hematocrit 39. Platelet count is 215. Sodium 14 2, potassium 5.0, chloride 114. CO2 is 20. BUN 14, creatinine 0.8. Glucose is 111. IMPRESSION: 1. Right lower extremity deep vein thrombosis, status post thrombolysis per Interventional Radiology . 2. Atrial fibrillation. 3. Agitation, better with Ativan, likely secondary to alcohol. 4. History of coronary artery disease. 5. History of tobacco abuse. 6. Coronary artery disease with history of myocardial infarction, currently stable. 7. Atrial fibrillation. RECOMMENDATIONS: 1. Agree with CIWA protocol. 2. Adequate pain control. 3. Start anticoagulation. 4. Early ambulation. /[id number]/MODL
[2018-05-21] MEDS ORDERED: ALTEPLASE 2 MG VIAL IVP PRN (13:46)
[2018-05-21] MEDS ORDERED: METOPROLOL TARTRATE 5 MG/5 ML INJ IV ONE (14:00)
[2018-05-21] MEDS ORDERED: LORazepam 1 MG TAB PO PRN (16:49)
[2018-05-21] MEDS ORDERED: LORazepam 2 MG/ML INJ IVP PRN (16:49)
[2018-05-21] MEDS ORDERED: DEXMEDETOMIDINE HCL 400 MCG in NS 100 ML IV SCH (17:00)
[2018-05-21] MEDS: ACETAMINOPHEN 650 MG SUPP PR PRN (18:19)
[2018-05-21] MEDS ORDERED: AMIODARONE HCL 540 MG in D5W 300 ML IV ONE (19:30)
[2018-05-22] MEDS: LORazepam 2 MG/ML INJ IVP SCH ×5 (00:42→17:34)
[2018-05-22] MEDS: HEPARIN/DEXTROSE 500 ML IV SCH ×2 (02:54→19:42)
[2018-05-22 05:21] LABS: PLATELET COUNT 185 10^3/uL (150-400)
[2018-05-22] MEDS: LISINOPRIL 40 MG TAB PO SCH (08:24)
[2018-05-22] MEDS: METOPROLOL TARTRATE 5 MG/5 ML INJ IVP SCH (08:24)
[2018-05-22] MEDS: THIAMINE HCL 500 MG in NS 100 ML IV SCH (08:25)
[2018-05-22] MEDS ORDERED: THIAMINE HCL 500 MG in NS 100 ML IV SCH (09:00)
[2018-05-22] MEDS: PRAVASTATIN SODIUM 40 MG TAB PO SCH (09:19)
--- NOTE | 2018-05-22 09:27 | PDINTPN ---
[facility] Lab Technician Progress Note Assessment/Plan: Assessment/plan: * DVT-status post localized tPA per interventional Radiology * Congestive heart failure -check echocardiogram * Acute respiratory failure-secondary to above -will increase diuretic * Coronary artery disease * Atrial fibrillation * IV access-PICC line has been placed * History of myocardial infarction * Noncompliance * Alcohol abuse-on [facility] protocol. Markedly improved. Subjective: Sitting up in bed. Resting comfortably. Less breathless. More awake and alert. Objective: Vital Signs Temp Pulse Resp BP Pulse Ox 36.9 C 67 20 127/93 H 100 05/22/18 08:00 05/22/18 08:24 05/22/18 08:00 05/22/18 08:24 05/22/18 08:00 Laboratory Results 05/22/18 05:00 05/22/18 05:00 05/21/18 05/22/18 05/23/18 05:59 05:59 05:59 Intake Total 2563 2067.3 1250 Output Total 900 2000 100 Balance 1663 67.3 1150 PT 14.7 SEC (12.0-15.0) 05/21/18 11:30 INR 1.13 (0.83-1.16) 05/21/18 11:30 Laboratory Results 05/22/18 05:00 05/22/18 05:00 05/22/18 05/21/18 05:00 17:00 Calcium 8.4 mg/dL L mg/dL (8.5 - 10.4) Magnesium 1.9 mg/dL mg/dL (1.6 - 2.3) Total Bilirubin 1.0 mg/dL mg/dL (0.1 - 1.4) AST 19 IU/L IU/L (17 - 59) ALT 24 IU/L IU/L (21 - 72) Alkaline Phosphatase 48 IU/L IU/L (38 - 126) Total Protein 5.2 g/dL L g/dL (6.3 - 8.2) Albumin 2.9 g/dL L g/dL (3.5 - 5.0) Urine Color YELLOW Urine Appearance HAZY Urine pH 5.0 (5.0 - 7.5) Ur Specific [place] 1.012 (1.002 - 1.030) Urine Protein 1+ H Urine Ketones NEGATIVE Urine Blood 2+ H Urine Nitrate NEGATIVE Urine Bilirubin NEGATIVE Urine Urobilinogen NEGATIVE EU EU Ur Leukocyte Esterase NEGATIVE Urine RBC 50-182 /hpf H /hpf Urine WBC 1-3 /hpf /hpf Ur Epithelial Cells TRACE /lpf /lpf Hyaline Casts 5-15 /lpf /lpf Urine Mucus 1+ /lpf /lpf Urine Glucose NEGATIVE Chest x-ray by myself. PICC line in good position. Cardiomegaly is again present. Diffuse pulmonary edema is unchanged. - Time Spent With Patient Time Spent With Patient: 35 min of time spent with patient, over 1/2 involved with coordination of care or counseling. Case discussed with nursing Physical Exam - Physical Exam General Appearance: alert EENT: PERRL/EOMI Neck: non-tender, full range of motion, supple, normal inspection Respiratory: rales (Bibasilar), No accessory muscle use, No wheezing Cardiac/Chest: normal peripheral pulses, regular rate, rhythm, systolic murmur Peripheral Pulses: 2+: carotid (R), carotid (L), femoral (R), femoral (L), dorsalis-pedis (R), dorsalis-pedis (L) Abdomen: normal bowel sounds, non-tender, soft Male Genitalia: deferred Rectal: deferred Back: Normal inspection Skin: normal color, warm/dry Extremities: normal range of motion, non-tender, normal inspection, normal capillary refill Neuro/Psych: alert ICD10 Worksheet Patient Problems: Problems Problem Status Onset Acute deep vein thrombosis (DVT) of right lower extremity Acute Acute exacerbation of congestive heart failure Acute Chronic obstructive pulmonary disease with acute exacerbation Acute DVT (deep venous thrombosis) Acute Dyspnea Acute Elevated troponin Acute Hypoxemia Acute Pulmonary vascular congestion Acute chronic disease mgmt/transitional care Acute
[2018-05-22] MEDS: FUROSEMIDE 40 MG/4 ML VIAL IVP SCH ×2 (11:40→17:34)
--- NOTE | 2018-05-22 12:21 | CPEKG ---
Test Reason : OPEN Blood Pressure : / mmHG Vent. Rate : 174 BPM Atrial Rate : 172 BPM P-R Int : 099 ms QRS Dur : 101 ms QT Int : 285 ms P-R-T Axes : 018 048 243 degrees QTc Int : 485 ms Atrial fibrillation with rapid V-rate Low voltage, extremity leads Repolarization abnormality, prob rate related Sinus rhythm was noted on prior ECG Confirmed by Raymond Zhao [id number]) on 05/22/2018 12:20:58 PM Referred By: Confirmed By:Raymond Zhao
[2018-05-22] MEDS ORDERED: AMIODARONE A.FIB-6HR INFSN (ORDER 2/3) PREMIX IV ONE (12:30)
[2018-05-22] MEDS ORDERED: AMIODARONE A.FIB-LOAD DOSE(ORDER 1/3) PREMIX IV ONE (12:30)
--- NOTE | 2018-05-22 16:17 | HOSPPROG ---
Hospitalist Progress Note Assessment/Plan: 68yo M with history of CAD/CO with ICM, atrial fibrillation previously on anticoagulation (self-discontinued) admitted on 05/19 with extensive RLE DVT now s/p thrombolysis #Acute RLE DVT: 1st VTE. Appears unprovoked. - thrombolysis completed per IR - Unclear why Heparin was not restarted last night. Restart now - He will need oral anticoagulation but we will wait until cognition is better prior to decision on this. #Acute ETOH WD -stop Precedex today -restart Ativan/CIWA -somewhat sedated currently so will hold on long acting Benzo's; although he may need them pending course #Agitation: better with Ativan. Sleeping currently #paroxysma Atrial fibrillation: Diagnosed 01/2018. -currently on IV Metoprolol. Can change back to oral once taking oral #Pedal edema and hypoxemia -suspect volume overload. will obtain a CXR and consider diuretics pending XR results #CAD/CO: Had occluded LCx on 05/2017 cath, no anginal sxs currently. - Continue statin #HTN: acute on chronic -cont BB per above. ROULA-I can will be restarted. #ICM: LVEF 45%. Compensated - Continue BB, ACEi #Tobacco use: #Gout: No acute flare. #Encephalopathy due to ETOH WD and sedation Diet: regular VTE ppx: therapeutic anticoagulation Code: full Dispo: cont inpatient total critical time spent on this pt with acute ETOH WD with significant symptoms and Acute DVT is 35min. D/W pharmacy and nursing at bedside. Will follow CXR Subjective: intermittently back in afib. mentation is better. Objective: Vital Signs Temp Pulse Resp BP Pulse Ox 36.9 C 79 22 H 136/84 H 97 05/22/18 15:00 05/22/18 15:00 05/22/18 15:00 05/22/18 15:00 05/22/18 15:00 Laboratory Results 05/22/18 05:00 05/22/18 05:00 05/21/18 05/22/18 05/23/18 05:59 05:59 05:59 Intake Total 2563 2067.3 1250 Output Total 900 2000 1700 Balance 1663 67.3 -450 PT 14.7 SEC (12.0-15.0) 05/21/18 11:30 INR 1.13 (0.83-1.16) 05/21/18 11:30 - Physical Exam Constitutional: no apparent distress Eyes: PERRL Ears, Nose, Mouth, Throat: moist mucous membranes Cardiovascular: regular rate and rhythym, edema Respiratory: reduced air movement Gastrointestinal: normoactive bowel sounds Skin: warm Neurologic: No AAOx3 Psychiatric: encephalopathic Lymph, Heme, Immunologic: No petechiae ICD10 Worksheet Patient Problems: Problems Problem Status Onset Acute deep vein thrombosis (DVT) of right lower extremity Acute Acute exacerbation of congestive heart failure Acute Chronic obstructive pulmonary disease with acute exacerbation Acute DVT (deep venous thrombosis) Acute Dyspnea Acute Elevated troponin Acute Hypoxemia Acute Pulmonary vascular congestion Acute chronic disease mgmt/transitional care Acute
--- NOTE | 2018-05-22 16:22 | HOSPPROG ---
Hospitalist Progress Note Assessment/Plan: 68yo M with history of CAD/[place] with ICM, atrial fibrillation previously on anticoagulation (self-discontinued) admitted on 05/19 with extensive RLE DVT now s/p thrombolysis #Acute RLE DVT: 1st VTE. Appears unprovoked. - thrombolysis completed per IR -stop Heparin, start Eliquis #Acute ETOH WD -stop Precedex today -restart Ativan/CIWA. Scheduled Ativan #Agitation: better with Ativan. Sleeping currently #acute on chronic Atrial fibrillation: Diagnosed 01/2018. -cont amio drip -change BB to oral #CHF with exacerbation with Pedal edema and hypoxemia -cont scheduled diuresis -TTE pending #CAD/KS: Had occluded LCx on 05/2017 cath, no anginal sxs currently. - Continue statin #HTN: acute on chronic -cont BB and ROULA-I #Tobacco use: #Gout: No acute flare. #Encephalopathy due to ETOH WD and sedation -somewhat improved Diet: regular VTE ppx: therapeutic anticoagulation Code: full Dispo: cont inpatient Plan: per above suspect compliance will be an issue can hopefully keep of the precedex drip tonight as we were not successful yesterday cont ICU cont Amio drip and schedule BB total critical care time for pt with acute afib, volume overload, chf, and acute WD is 33 mins Subjective: WD symptoms are better this afternoon. Diuresis has been favorable . HR is controlled although appears back in Afib Objective: Vital Signs Temp Pulse Resp BP Pulse Ox 36.9 C 79 22 H 136/84 H 97 05/22/18 15:00 05/22/18 15:00 05/22/18 15:00 05/22/18 15:00 05/22/18 15:00 Laboratory Results 05/22/18 05:00 05/22/18 05:00 05/21/18 05/22/18 05/23/18 05:59 05:59 05:59 Intake Total 2563 2067.3 1250 Output Total 900 2000 1700 Balance 1663 67.3 -450 PT 14.7 SEC (12.0-15.0) 05/21/18 11:30 INR 1.13 (0.83-1.16) 05/21/18 11:30 - Physical Exam Constitutional: no apparent distress Eyes: PERRL Ears, Nose, Mouth, Throat: moist mucous membranes Cardiovascular: regular rate and rhythym, edema Respiratory: no respiratory distress, reduced air movement Skin: warm Neurologic: No AAOx3 Psychiatric: encephalopathic Lymph, Heme, Immunologic: No petechiae ICD10 Worksheet Patient Problems: Problems Problem Status Onset Acute deep vein thrombosis (DVT) of right lower extremity Acute Acute exacerbation of congestive heart failure Acute Chronic obstructive pulmonary disease with acute exacerbation Acute DVT (deep venous thrombosis) Acute Dyspnea Acute Elevated troponin Acute Hypoxemia Acute Pulmonary vascular congestion Acute chronic disease mgmt/transitional care Acute
--- NOTE | 2018-05-22 17:17 | ECHO ---
[email or web address] [address] Main: [phone] Fax: Transthoracic Echocardiogram Name: TONIO LINK MR#: [id number] Study Date: 05/22/2018 Study Time: 10:13 AM Date of : 1950 Age: 68 year(s) Height: 182.9 cm (72 in.) Weight: 89.36 kg (197 lb.) BSA: 2.12 m2 Gender: Male Examination: Echo Indication: COPD, Cardiomyopathy, Pulmonary Edema Image Quality: Contrast: Requested by: Ramsey Sharif BP: 143 mmHg/85 mmHg Heart Rate: Rhythm: Indication: COPD, Cardiomyopathy, Pulmonary Edema Procedure Staff Senior Receptionist: Wu Alonzo RDCS Reading Physician: Martha Gates MD Requesting Provider: Conclusions: Normal size left ventricle. Mild concentric LV hypertrophy. Mildly reduced systolic LV function. There is inferior, inferoseptal akinesis. The Ejection fraction is estimated at 45%. Normal size right ventricle. Normal RV function. The left atrium is moderately dilated. Moderate tricuspid regurgitation is present. The pulmonary artery pressure is severely increased. Right Ventricular systolic pressure is measured at 84 mmHg. Compared with 05/21/2017 PA pressure is significantly higher. Measurements: Chambers Valvular Assessment AV/MV Valvular Assessment TV/PV Normal Normal Normal Name Value Range Name Value Range Name Value Range Ao Shakira (MM): 3.0 cm (2.2 cm-3.7 AV Vmax: 1.17 m/s (1 m/s-1.7 TR Vmax: 4.30 mm/s ( - ) cm) m/s) TR PGmax: 74 mmHg ( - ) IVSd (2D): 0.9 cm (0.6 cm-1.1 AV maxP mmHg ( - ) syst. PAP: 84 mmHg ( - ) cm) AV meanP mmHg ( - ) PV Vmax: 0.95 m/s (0.6 m/s-0.9 LVDd (2D): 4.8 cm (4.2 cm-5.9 LVOT Vmax: 0.67 m/s (0.7 m/s-1.1 m/s) cm) m/s) PV PGmax: 4 mmHg ( - ) LVDs (2D): 3.8 cm (2.1 cm-4 MV E Vmax: 1.67 m/s ( - ) cm) MV meanP mmHg ( - ) LVPWd (2D): 1.1 cm (0.6 cm-1 cm) LVEF (BP): 39 % (>=55 %) EF Range: 40-45 % Continued Measurements: Patient: TONIO LINK Study Date: 05/22/2018 Page 1 of 2 10:13 AM Chambers Valvular Assessment AV/MV Valvular Assessment TV/PV Name Value Name Value Name Value LADs Lon.6 cm MV Annulus: 3.2 cm CVP (est.): 10 mmHg LA Area: 25.4 cm2 MV E' Septal: 0.07 m/s LA Volume: 91 ml MV E/E' Septal: 24.10 LA Volume Index: 42.9 ml/m2 MV E/E' Lateral: 22.20 MV VTI: 38.20 cm MR ERO: 0.450 cm2 MR PISA radius: 9 mm MR Reg. Volume: 55 ml MR Reg. Fraction: 18 % Findings: Left Ventricle: Normal size left ventricle. Mild concentric LV hypertrophy. Mildly reduced systolic LV function. The ejection fraction is estimated to be 40-45 %. Diastolic dysfunction is present. . There is inferior, inferoseptal akinesis. The Ejection fraction is estimated at 45%. Right Ventricle: Normal size right ventricle. Normal RV function. Left Atrium: The left atrium is moderately dilated. Right Atrium: The right atrium is normal in size. Mitral Valve: Mild mitral valve leaflet calcification is present. Moderate to severe mitral regurgitation. Aortic Valve: The aortic valve is tri-leaflet. The aortic valve is normal in appearance and function. Tricuspid Valve: Moderate tricuspid regurgitation is present. The pulmonary artery pressure is severely increased. Right Ventricular systolic pressure is measured at 84 mmHg. Pulmonic Valve: The pulmonic valve is normal in appearance and function. Aorta: The aorta is normal. IVC: The IVC is dilated. Pericardium: No pericardial effusion. (No Signature Object) Patient: TONIO LINK Study Date: 05/22/2018 Page 2 of 2 10:13 AM [id number]
[2018-05-22] MEDS: CARVEDILOL 25 MG TAB PO SCH (17:34)
[2018-05-22] MEDS ORDERED: AMIODARONE A.FIB-18HR INFSN (ORDER 3/3) IV ONE (19:00)
[2018-05-22] MEDS: APIXABAN 5 MG TAB PO SCH (19:41)
[2018-05-22] MEDS: LORazepam 2 MG/ML INJ IVP PRN (22:14)
[2018-05-22] MEDS: HYDROmorphONE/DILAUDID 1 MG/ML INJ IVP PRN (22:15)
[2018-05-23] MEDS: LORazepam 2 MG/ML INJ IVP SCH ×4 (01:29→17:57)
[2018-05-23] MEDS: LORazepam 2 MG/ML INJ IVP PRN (04:05)
--- NOTE | 2018-05-23 08:36 | HOSPPROG ---
Hospitalist Progress Note Assessment/Plan: #Extensive right leg DVT: s/p thrombolysis. Now on Eliquis #Acute Etoh withdrawal #Acute on chronic atrial fibrillation; amiodarone gtt, Eliquis. Coreg #Acutely decompensated systolic HF: EF stable at 45%> Replace K, Mg at goal -cont IV Lasix, BB, ROULA-i #Toxic encephalopathy: due to Etoh w/d #Severe pulm HTN: suspect underlying sleep apnea. Caution with diuresis #CAD: occluded LCx 05/2017. Statin, BB #HTN: home meds #Tobacco dependence: will need counseling when MS improved #Gout: no flare #DVT ppx: on Eliquis #Disp: cont ICU admission for Precedex, Amio gtt. Case d/w Dr. Sharif Subjective: more somolent today Objective: Vital Signs Temp Pulse Resp BP Pulse Ox 37.7 C 146 H 24 H 129/92 H 97 05/23/18 06:00 05/23/18 06:00 05/23/18 06:00 05/23/18 06:00 05/23/18 06:00 Laboratory Results 05/23/18 04:00 05/23/18 04:00 05/22/18 05/23/18 05/24/18 05:59 05:59 05:59 Intake Total 2067.3 4443.5 Output Total 1999 3850 Balance 67.3 593.5 PT 14.7 SEC (12.0-15.0) 05/21/18 11:30 INR 1.13 (0.83-1.16) 05/21/18 11:30 - Physical Exam Constitutional: other (mumbling, sitting chair) Eyes: PERRL Ears, Nose, Mouth, Throat: moist mucous membranes Cardiovascular: irregularly irregular, edema (BL leg edema, +2) Gastrointestinal: normoactive bowel sounds Genitourinary: woody in urethra Skin: warm Neurologic: CN II-XII Intact, other (not participating in exam ), No AAOx3 Psychiatric: encephalopathic ICD10 Worksheet Patient Problems: Problems Problem Status Onset Acute deep vein thrombosis (DVT) of right lower extremity Acute Acute exacerbation of congestive heart failure Acute Chronic obstructive pulmonary disease with acute exacerbation Acute DVT (deep venous thrombosis) Acute Dyspnea Acute Elevated troponin Acute Hypoxemia Acute Pulmonary vascular congestion Acute chronic disease mgmt/transitional care Acute
[2018-05-23] MEDS: FUROSEMIDE 40 MG/4 ML VIAL IVP SCH ×2 (09:03→14:22)
[2018-05-23] MEDS: CARVEDILOL 25 MG TAB PO SCH ×2 (09:03→18:04)
[2018-05-23] MEDS: APIXABAN 5 MG TAB PO SCH ×2 (09:03→20:25)
[2018-05-23] MEDS: THIAMINE HCL 500 MG in NS 100 ML IV SCH (09:04)
[2018-05-23] MEDS: LISINOPRIL 40 MG TAB PO SCH (09:04)
--- NOTE | 2018-05-23 09:33 | PDINTPN ---
Shift Superintendent Progress Note Assessment/Plan: Assessment/plan: * DVT-status post localized tPA per interventional Radiology * Congestive heart failure -echocardiogram reveals ejection fraction 45% * Severe pulmonary hypertension-estimated PA pressures are 84 mm Hg * Acute respiratory failure-secondary to above. Still markedly positive on I/O -Lasix increased to 40 mg twice daily * Coronary artery disease * Atrial fibrillation * IV access-PICC line has been placed * History of myocardial infarction * Noncompliance * Alcohol abuse-on [facility] protocol. Stable 05/23/18 09:35 Subjective: Sitting up in chair. Mumbling. Objective: Vital Signs Temp Pulse Resp BP Pulse Ox 37.8 C 88 19 115/74 97 05/23/18 08:00 05/23/18 09:03 05/23/18 08:00 05/23/18 09:04 05/23/18 08:00 Laboratory Results 05/23/18 04:00 05/23/18 04:00 05/22/18 05/23/18 05/24/18 05:59 05:59 05:59 Intake Total 2067.3 4443.5 Output Total 1999 3850 Balance 67.3 593.5 PT 14.7 SEC (12.0-15.0) 05/21/18 11:30 INR 1.13 (0.83-1.16) 05/21/18 11:30 Chest [id number] by myself. PICC line in good position. Diffuse pulmonary edema still present. - Time Spent With Patient Time Spent With Patient: 35 min of time spent with patient, over 1/2 involved with coordination of care or counseling. Case discussed with Nursing and hospitalist Physical Exam - Physical Exam General Appearance: alert, no apparent distress EENT: PERRL/EOMI Neck: non-tender Respiratory: chest non-tender, rhonchi (Few) Cardiac/Chest: normal peripheral pulses, regular rate, rhythm Abdomen: normal bowel sounds, non-tender, soft Male Genitalia: deferred Rectal: deferred Skin: normal color, warm/dry Extremities: non-tender Neuro/Psych: No alert ICD10 Worksheet Patient Problems: Problems Problem Status Onset Acute deep vein thrombosis (DVT) of right lower extremity Acute Acute exacerbation of congestive heart failure Acute Chronic obstructive pulmonary disease with acute exacerbation Acute DVT (deep venous thrombosis) Acute Dyspnea Acute Elevated troponin Acute Hypoxemia Acute Pulmonary vascular congestion Acute chronic disease mgmt/transitional care Acute
[2018-05-23] MEDS: POTASSIUM Cl (KCl) 100 ML IV SCH ×3 (11:47→13:45)
[2018-05-23] MEDS ORDERED: AMIODARONE HCL 900 MG in D5W 500 ML IV SCH (13:00)
[2018-05-23] MEDS: AMIODARONE A.FIB-18HR INFSN (ORDER 3/3) IV SCH (13:02)
[2018-05-23] MEDS: PRAVASTATIN SODIUM 40 MG TAB PO SCH (13:28)
[2018-05-23] MEDS: ACETAMINOPHEN 650 MG SUPP PR PRN (15:16)
--- NOTE | 2018-05-23 16:04 | ASMTCMCOM ---
CM Note CM Note Notes: 05/23/2018 Case Management Note Reviewed pt during rounds this morning. Pt is unable to participate in PT OT evals at this time d/t altered mental status and encephalopathy. Pt on [facility] protocol. Case Management d/c poc: to be determined Case Management to follow. Date Signed: 05/23/2018 04:04 PM Electronically Signed By:Concetta Reyes RN
[2018-05-23] MEDS ORDERED: DILTIAZEM 25 MG/5 ML VIAL IVP ONE ×2 (19:00→20:00)
[2018-05-23] MEDS: HYDROmorphONE/DILAUDID 1 MG/ML INJ IVP PRN (22:25)
[2018-05-24] MEDS: LORazepam 2 MG/ML INJ IVP SCH ×2 (00:27→05:39)
[2018-05-24] MEDS: AMIODARONE A.FIB-18HR INFSN (ORDER 3/3) IV SCH (06:15)
[2018-05-24] MEDS: FUROSEMIDE 40 MG/4 ML VIAL IVP SCH ×2 (08:22→14:33)
[2018-05-24] MEDS: LISINOPRIL 40 MG TAB PO SCH (08:23)
[2018-05-24] MEDS: CARVEDILOL 25 MG TAB PO SCH ×2 (08:23→17:39)
[2018-05-24] MEDS: THIAMINE HCL 100 MG TAB PO SCH (09:11)
[2018-05-24] MEDS: APIXABAN 5 MG TAB PO SCH ×2 (09:11→20:50)
[2018-05-24] MEDS: PRAVASTATIN SODIUM 40 MG TAB PO SCH (09:11)
--- NOTE | 2018-05-24 09:14 | PDINTPN ---
Quality Engineering Manager Progress Note Assessment/Plan: Assessment/plan: * DVT-status post localized tPA per interventional Radiology * Congestive heart failure -echocardiogram reveals ejection fraction 45% * Severe pulmonary hypertension-estimated PA pressures are 84 mm Hg * Acute respiratory failure-secondary to above. Still markedly positive on I/O -Lasix increased to 40 mg twice daily * Mental status-markedly somnolent -will discontinue Ativan for now * Coronary artery disease * Atrial fibrillation * IV access-PICC line has been placed * History of myocardial infarction * Noncompliance * Alcohol abuse-on [facility] protocol. Subjective: Markedly somnolent. Sitting up in chair. No current complaints when aroused. Objective: Vital Signs Temp Pulse Resp BP Pulse Ox 37.4 C 71 22 H 137/88 H 94 05/24/18 08:00 05/24/18 08:00 05/24/18 08:00 05/24/18 08:00 05/24/18 08:00 Laboratory Results 05/23/18 04:00 05/24/18 04:13 05/23/18 05/24/18 05/25/18 05:59 05:59 05:59 Intake Total 4443.5 1630 Output Total 3850 4300 Balance 593.5 -2670 PT 14.7 SEC (12.0-15.0) 05/21/18 11:30 INR 1.13 (0.83-1.16) 05/21/18 11:30 - Time Spent With Patient Time Spent With Patient: 35 min of time spent with patient, over 1/2 involved coordination of care or counseling. Case discussed with nursing Physical Exam - Physical Exam General Appearance: other (Somnolent), No alert EENT: PERRL/EOMI Neck: non-tender, full range of motion, supple, normal inspection Respiratory: rhonchi (Few), No respiratory distress Cardiac/Chest: normal peripheral pulses, regular rate, rhythm, systolic murmur Peripheral Pulses: 2+: carotid (R), carotid (L), femoral (R), femoral (L), dorsalis-pedis (R), dorsalis-pedis (L) Abdomen: normal bowel sounds, non-tender, soft Male Genitalia: deferred Skin: normal color, warm/dry Extremities: normal range of motion, non-tender, normal inspection, normal capillary refill Neuro/Psych: No alert ICD10 Worksheet Patient Problems: Problems Problem Status Onset Acute deep vein thrombosis (DVT) of right lower extremity Acute Acute exacerbation of congestive heart failure Acute Chronic obstructive pulmonary disease with acute exacerbation Acute DVT (deep venous thrombosis) Acute Dyspnea Acute Elevated troponin Acute Hypoxemia Acute Pulmonary vascular congestion Acute chronic disease mgmt/transitional care Acute
--- NOTE | 2018-05-24 09:33 | HOSPPROG ---
Hospitalist Progress Note Assessment/Plan: 68-year-old admitted with leg swelling and diagnosed with extensive DVT. He initially left AMA but returned and underwent thrombolysis due to extensive DVT. Since admission he has had significant alcohol withdrawal symptoms. # extensive right leg DVT status post thrombolysis now on Eliquis. Poor candidate for warfarin due to alcohol use # acute alcohol withdrawal, currently on Precedex. Still significantly encephalopathic # acute on chronic AFib currently on amiodarone drip will need to discuss possible transition to oral medications when he is taking medications regularly. On Eliquis and Coreg # acute decompensated congestive heart failure, EF equal 45% * IV Lasix * Coreg * Lisinopril * Monitor and replace electrolytes as needed # acute encephalopathy due to alcohol withdrawal # severe pulmonary hypertension noted on echo, will need ongoing evaluation for sleep apnea as outpatient # coronary artery disease, occluded left circumflex # hypertension # tobacco use Subjective: Patient new to me and chart reviewed, patient quite encephalopathic and mobile but does not seem to follow the conversation. Objective: Vital Signs Temp Pulse Resp BP Pulse Ox 37.4 C 71 22 H 137/88 H 94 05/24/18 08:00 05/24/18 08:00 05/24/18 08:00 05/24/18 08:00 05/24/18 08:00 Laboratory Results 05/23/18 04:00 05/24/18 04:13 05/23/18 05/24/18 05/25/18 05:59 05:59 05:59 Intake Total 4443.5 1630 Output Total 3850 4300 Balance 593.5 -2670 PT 14.7 SEC (12.0-15.0) 05/21/18 11:30 INR 1.13 (0.83-1.16) 05/21/18 11:30 - Physical Exam Constitutional: not in pain Eyes: PERRL Ears, Nose, Mouth, Throat: moist mucous membranes Cardiovascular: regular rate and rhythym Respiratory: no respiratory distress, clear to auscultation Gastrointestinal: soft, non-tender abdomen Genitourinary: woody in urethra Skin: warm Musculoskeletal: generalized weakness Neurologic: No AAOx3 Psychiatric: encephalopathic ICD10 Worksheet Patient Problems: Problems Problem Status Onset Chronic obstructive pulmonary disease with acute exacerbation Acute Hypoxemia Acute DVT (deep venous thrombosis) Acute Acute deep vein thrombosis (DVT) of right lower extremity Acute chronic disease mgmt/transitional care Acute Acute exacerbation of congestive heart failure Acute Dyspnea Acute Elevated troponin Acute Pulmonary vascular congestion Acute
[2018-05-24] MEDS: AMIODARONE HCL 200 MG TAB PO SCH ×2 (11:05→20:50)
[2018-05-24] MEDS ORDERED: PROTOCOL POTASSIUM 1 DOSE MISC PRN (14:07)
[2018-05-24] MEDS: POTASSIUM Cl (KCl) 50 ML IV SCH ×3 (14:48→16:21)
[2018-05-24] MEDS: ACETAMINOPHEN 325 MG TAB PO PRN (15:51)
[2018-05-24] MEDS ORDERED: THIAMINE HCL 100 MG TAB PO SCH (16:49)
[2018-05-25] MEDS: HALOPERIDOL LACT 5 MG/ML INJ IVP PRN ×2 (05:46→23:13)
[2018-05-25] MEDS ORDERED: POTASSIUM CL 10 MEQ TAB PO ONE ×2 (07:28→17:36)
[2018-05-25] MEDS: PRAVASTATIN SODIUM 40 MG TAB PO SCH (08:25)
[2018-05-25] MEDS: APIXABAN 5 MG TAB PO SCH ×2 (08:25→20:09)
[2018-05-25] MEDS: ACETAMINOPHEN 325 MG TAB PO PRN ×3 (08:25→20:09)
[2018-05-25] MEDS: AMIODARONE HCL 200 MG TAB PO SCH ×2 (08:25→20:09)
[2018-05-25] MEDS: THIAMINE HCL 100 MG TAB PO SCH (08:25)
[2018-05-25] MEDS: CARVEDILOL 25 MG TAB PO SCH ×2 (08:25→17:46)
[2018-05-25] MEDS: LISINOPRIL 40 MG TAB PO SCH (08:26)
[2018-05-25] MEDS: FUROSEMIDE 40 MG/4 ML VIAL IVP SCH ×2 (08:26→15:01)
--- NOTE | 2018-05-25 11:47 | HOSPPROG ---
Hospitalist Progress Note Assessment/Plan: 68-year-old admitted with leg swelling and diagnosed with extensive DVT. He initially left AMA but returned and underwent thrombolysis due to extensive DVT. Since admission he has had significant alcohol withdrawal symptoms. # extensive right leg DVT status post thrombolysis now on Eliquis. Poor candidate for warfarin due to alcohol use # acute alcohol withdrawal, Precedex is weaned off he did receive scheduled Ativan and was quite lethargic. That has also since been discontinued and he is slowly improving. * Continue supportive care * Monitor off benzos * Start physical therapy # acute on chronic AFib currently on amiodarone drip will need to discuss possible transition to oral medications when he is taking medications regularly. On Eliquis and Coreg # acute decompensated congestive heart failure, EF equal 45% * IV Lasix * Coreg * Lisinopril * Monitor and replace electrolytes as needed # acute encephalopathy due to alcohol withdrawal # severe pulmonary hypertension noted on echo, will need ongoing evaluation for sleep apnea as outpatient # coronary artery disease, occluded left circumflex # hypertension # tobacco use Subjective: Patient is slightly more alert, still slurring his words and not oriented completely. Objective: Vital Signs Temp Pulse Resp BP Pulse Ox 37.2 C 66 18 106/70 98 05/25/18 11:37 05/25/18 11:37 05/25/18 11:37 05/25/18 11:37 05/25/18 11:37 Laboratory Results 05/23/18 04:00 05/25/18 05:00 05/24/18 05/25/18 05/26/18 05:59 05:59 05:59 Intake Total 1630 973.7 360 Output Total 4300 2925 650 Balance -2670 -1951.3 -290 PT 14.7 SEC (12.0-15.0) 05/21/18 11:30 INR 1.13 (0.83-1.16) 05/21/18 11:30 - Physical Exam Constitutional: not in pain, chronically ill appearing Eyes: PERRL Ears, Nose, Mouth, Throat: moist mucous membranes Cardiovascular: regular rate and rhythym Respiratory: no respiratory distress Gastrointestinal: soft, non-tender abdomen Genitourinary: no bladder fullness Skin: normal color Musculoskeletal: generalized weakness Neurologic: No AAOx3, No facial droop Psychiatric: encephalopathic ICD10 Worksheet Patient Problems: Problems Problem Status Onset Chronic obstructive pulmonary disease with acute exacerbation Acute Hypoxemia Acute DVT (deep venous thrombosis) Acute Acute deep vein thrombosis (DVT) of right lower extremity Acute chronic disease mgmt/transitional care Acute Acute exacerbation of congestive heart failure Acute Dyspnea Acute Elevated troponin Acute Pulmonary vascular congestion Acute
[2018-05-26] MEDS ORDERED: POTASSIUM CL 10 MEQ TAB PO ONE (06:16)
[2018-05-26] MEDS: LISINOPRIL 40 MG TAB PO SCH (08:08)
[2018-05-26] MEDS: PRAVASTATIN SODIUM 40 MG TAB PO SCH (08:09)
[2018-05-26] MEDS: FUROSEMIDE 40 MG/4 ML VIAL IVP SCH (08:09)
[2018-05-26] MEDS: APIXABAN 5 MG TAB PO SCH (08:09)
[2018-05-26] MEDS: CARVEDILOL 25 MG TAB PO SCH (08:09)
[2018-05-26] MEDS: THIAMINE HCL 100 MG TAB PO SCH (08:09)
[2018-05-26] MEDS: AMIODARONE HCL 200 MG TAB PO SCH (08:09)
--- NOTE | 2018-05-26 10:57 | ASDISCHSUM ---
Discharge Information Plan Status:Home with No Needs Medically Cleared to Leave:05/26/2018 Discharge Date:05/26/2018 CM D/C Disposition:Home, Routine, Self-Care ADT D/C Disposition:Home, Routine, Self-Care Projected Discharge Date:05/26/2018 11:00 AM Transportation at D/C:Self Discharge Delay Reason: Follow-Up Date:05/26/2018 11:00 AM Discharge Slot:1 - 8:01 am - 12:00 noon Final Diagnosis:Extensive RLE DVT Placement Information Patient Contact Information Contact Name:ALISASÁNCHEZ Relationship: Address: Home Phone: Work Phone: City: Alternate Phone: State/Zip Code: Email: Financial Information Financial Class:Medicare Primary Plan Desc:MEDICARE INPATIENT Primary Plan Number:[id number] Secondary Plan Desc:[place] Secondary Plan Number:[id number] Assessment Information LACE LACE Acuity / Level of Answers: Yes Care: Did the patient have an inpatient admission? Comorbidities - select Answers: Chronic pulmonary disease all that apply Congestive heart failure Coronary Artery Disease Previous myocardial infarction Other Notes: AFib; HTN; DVT # of Emergency department Answers: 3-4 visits in the last 6 months Social determinants Answers: Mental health diagnosis (anxiety, depression, pers onality disorders, etc.) Score: 17 Date Signed: 05/19/2018 02:26 PM Electronically Signed By:Yanira Nichols [facility] Initial CM Assessment Living Arrangements What is your living Answers: Alone arrangement? Who do you live with? Type Of Residence What kind of residence do Answers: Homeless you live in? Discharge Plan Comments Coordination Status Comments Notes: Patient is a 68yo single, homeless, male with a hx of CAD/[place] with ICM, atrial fibrillation not on anticoagulation. Patient is being admitted for acute RLE DVT, AFIB, CAD/[place], ICM, ETOH use and gout. Patient did leave the ED AMA after treatment had been started for unknown reasons. He was admitted when he returned to the ED for right leg swelling. No therapies have been ordered at this time. Patient does live in his van and has both Medicaid and Medicare. D/C needs TBD. CM will follow. Date Signed: 05/20/2018 03:45 PM Electronically Signed By:Niki Roberts LCSW [facility] Progress Note CM Note CM Note Notes: 05/23/2018 Case Management Note Reviewed pt during rounds this morning. Pt is unable to participate in PT OT evals at this time d/t altered mental status and encephalopathy. Pt on [facility] protocol. Case Management d/c poc: to be determined Case Management to follow. Date Signed: 05/23/2018 04:04 PM Electronically Signed By:Concetta Reyes RN Case Management Discharge Plan Note Case Management Discharge Discharge Order Complete? Answers: Yes Patient to Obtain Answers: Independently Medications Transportation Arranged Answers: Other Notes: Self in van Transport will Pick (Date 05/26/2018 11:00 AM & Time) Discharge Comments Notes: Therapies report that pT is back to baseline and can return to his van. Date Signed: 05/26/2018 10:56 AM Electronically Signed By:Liza Butt LCSW Intervention Information
--- NOTE | 2018-05-26 11:19 | GDS ---
DIAGNOSES: 1. Extensive right leg deep venous thrombosis, status post thrombolysis, now on Eliquis. 2. History of alcohol use and acute alcohol withdrawal in the hospital. He had been on Precedex and Ativan. He is currently stable and at baseline. 3. Acute on chronic atrial fibrillation. Was initially placed on an amiodarone drip and now is on o ral amiodarone. We will discharge him and follow up with his manager life insurance who can wean him off the a miodarone as an outpatient. 4. Acute decompensated congestive heart failure with an ejection fraction of 45%. Resume his home m edications. At this time, he is euvolemic. 5. Acute encephalopathy due to alcohol withdrawal, improved. 6. Severe pulmonary hypertension on echocardiogram. Will need evaluation for sleep apnea as outpati ent. 7. Coronary artery disease, occluded left circumflex. 8. Hypertension. 9. Ongoing tobacco use. PROCEDURES DONE DURING HOSPITALIZATION: 1. Lower extremity Doppler, venogram, and thrombolysis done by interventional Radiology. 2. PICC line insertion. 3. Echocardiogram, EF of 45%. CONSULTATIONS: Include Intensive Care, Dr. Ramsey Sharif and Interventional Radiology, Dr. Geoff mcmanus. HOSPITAL COURSE: The patient is a 68-year-old man initially admitted with some lower extremity swell ing. He does have a history of heart disease with an ischemic cardiomyopathy and atrial fibrillation not on anticoagulation. He presented with an increasing right lower extremity swelling and noted to have a large DVT. Heparin drip was begun and he initially left AMA, but returned after taking a dos e of his Eliquis due to increasing numbness in his leg, chest pain, and dizziness. He was readmitted to the hospital. Interventional Radiology did see him and proceeded with tPA throm bolysis and he did well; however, he did become increasingly agitated and was placed on the CIWA prot ocol for acute alcohol withdrawal. This took several days and he became quite encephalopathic during this time and went into rapid atrial fibrillation requiring an amiodarone drip. Eventually, the atr ial fibrillation stabilized. He was moved to oral amiodarone. His heart rate and blood pressure wer e stable and his medications were weaned off for alcohol withdrawal. On the day of discharge, he is back to baseline and requires no outpatient therapies. CONDITION ON DISCHARGE: Good. Vital signs are stable. Heart rate 74, blood pressure 142/84. He is in sinus rhythm. He is 93% on room air. DISCHARGE MEDICATIONS: Please see discharge medication form. He will resume his home medications. Additionally, he was placed on Eliquis 5 mg b.i.d. and amiodarone 200 mg daily. FOLLOWUP INSTRUCTIONS: He needs to follow up with Dr. Stevens regarding his DVT and ongoing Eliquis u se. I will give him a coupon for 30 days and he needs to check with his insurance regarding ongoing therapy with Eliquis or if he needs to try a different anticoagulant. Unfortunately, I think Coumadi n is contraindicated due to his alcohol use. Follow up with Dr. Jericho Morris for his atrial fibrilla tion. He is currently on amiodarone at 200 daily. I think that he is now off his acute illness, he may do well off the amiodarone; however, I will give him a 30 day supply and he can be weaned off thi s as an outpatient by Dr. Morris. Total time spent with patient on day of discharge and coordination of care is 35 minutes. Copy requested to: Dr. Stevens /[id number]/MODL
[2018-05-26 11:22] VITALS: BP 139/93
== END 2018-05-26 12:25 | disposition home or self-care (01) | DRG 299 ==
LOC: F1N 13:04 → F2N 16:39
PROVIDERS: ADMIT Internal Medicine; ATTEND Internal Medicine
PROC: 3E03317 Introduction of Other Thrombolytic into Peripheral Vein, Percutaneous Approach (ICD-10-PCS; 2018-05-19)
PROC: 02HV33Z Insertion of Infusion Device into Superior Vena Cava, Percutaneous Approach (ICD-10-PCS; principal; 2018-05-22)
DX: I82.411 Acute embolism and thrombosis of right femoral vein (principal); I11.0 Hypertensive heart disease with heart failure; I50.23 Acute on chronic systolic (congestive) heart failure; F10.239 Alcohol dependence with withdrawal, unspecified; I82.431 Acute embolism and thrombosis of right popliteal vein; I48.2 Chronic atrial fibrillation; I25.10 Atherosclerotic heart disease of native coronary artery without angina pectoris; E78.5 Hyperlipidemia, unspecified; I25.2 Old myocardial infarction; M10.9 Gout, unspecified; I34.0 Nonrheumatic mitral (valve) insufficiency
CPT/HCPCS: 82435-PO; 82565-PO; 82947-PO; 84132-PO; 84295-PO; 84520-PO; 85014-PO; 85520-90; 96374; 97116-GP; 97162-GP; 97165-GO; 97530-GP; 97535-GO; C1751; C1757; C1758; C1769; C1894; G8978-GP-CM; G8979-GP-CK; G8987-GO-CK; G8988-GO-CI; J0282; J1170; J1630; J1644; J1940; J2060; J2250; J2270; J2310; J2405; J2997; J3010; J3411; J3480; Q9967

== ENCOUNTER 2018-07-24 14:41 | Emergency (ER) | payer OTHER, MEDICAID ==
[~2018-07-24 14:41] MED LIST: FUROSEMIDE 40 MG TAB PO SCH
--- NOTE | 2018-07-24 14:47 | EDPHY ---
H & P Time Seen by Provider: 07/24/18 14:44 HPI/ROS: CHIEF COMPLAINT: Cough for 3 days, "feels like my bronchitis" HISTORY OF PRESENT ILLNESS: 68 year old man with history of COPD presents with 3 days of coughing nonproductive and worsening shortness of breath. He says it feels like previous bronchitis. Worse with exertion, a little bit of sputum but no hemoptysis, no leg swelling. Denies chest pain, does not have fever or chills. Taking"extra water pills", has a history of PE and is taking his Eliquis regularly. REVIEW OF SYSTEMS: Eye: no change in vision ENT: no sore throat Cardiac: no chest pain or syncope Pulmonary: HPI Abdomen: no vomiting, diarrhea, abdominal pain Musculoskeletal: No leg swelling Skin: no rash Neuro: no headache Constitutional: no fever : no urinary symptoms A comprehensive 10 point review of systems is otherwise negative aside from elements mentioned in the history of present illness. PAST MEDICAL HISTORY: Discharge summary dated 05/26/2018 personally reviewed includes extensive right leg DVT on anticoagulation, history of alcoholism and alcohol withdrawal, atrial fibrillation, congestive heart failure with EF of 45% , pulmonary hypertension, coronary artery disease with occluded left circumflex , hypertension. Social history: Homeless, no cigarettes for 2 days, quit alcohol during last hospitalization. General Appearance: Alert and conversant, cooperative. Eyes: No scleral icterus. ENT, Mouth: Normal mucous membranes. Respiratory: Decreased breath sounds bilaterally with slight expiratory wheezes , no rhonchi, no rales. Cardiovascular: Regular rate and rhythm. Gastrointestinal: Abdomen is soft and non tender. Neurological: Alert, face symmetric, normal motor and sensory in extremities. Skin: Warm and dry, no rashes. Musculoskeletal: No peripheral edema. No calf tenderness. Psychiatric: Not agitated. Emergency Department course/MDM: More likely bronchitis, is afebrile with 92% O2 sat, has wheezing on exam. Plan for CBC chemistry and chest x-ray, DuoNeb oral prednisone and albuterol. Case management for prescriptions. 1604: Patient is up walking around, feels better, plan to discharge with oral antibiotic doxycycline as well as albuterol MDI and steroids, extra 40 mg oral daily Lasix as he is running low, does not have evidence of pneumonia. Smoking Status: Heavy smoker Constitutional: Initial Vital Signs Temperature (C) 36.8 C 07/24/18 14:47 Heart Rate 91 07/24/18 14:47 Respiratory Rate 18 07/24/18 14:47 Blood Pressure 168/95 H 07/24/18 14:47 O2 Sat (%) 92 07/24/18 14:47 O2 Delivery Mode Room Air Allergies/Adverse Reactions: Tetanus Vaccines and Toxoid Allergy (Verified 05/19/18 09:47) Home Medications: Medication Instructions Recorded Albuterol [Proventil Inhaler HFA 1 - 2 puffs IH Q4H PRN 02/11/18 (*)] Fluticasone Propionate [Flonase 1 spray NS BID PRN 02/11/18 Allergy Relief] Furosemide [Lasix 40 MG (*)] 40 - 60 mg PO HS 02/11/18 Lisinopril [Zestril 40 mg (*)] 40 mg PO DAILY 02/11/18 Carvedilol [Coreg (*)] 25 mg PO BIDMEAL tab 02/12/18 Amiodarone HCl [Pacerone (*)] 200 mg PO BID #30 tab 05/26/18 Apixaban [Eliquis] 5 mg PO BID #60 tab 05/26/18 Doxycycline Hyclate [Doxycycline] 100 mg PO BID #20 cap 07/24/18 Doxycycline Hyclate [Doxycycline] 100 mg PO BID #20 cap 07/24/18 Furosemide [Lasix 40 MG (*)] 40 mg PO DAILY #10 tab 07/24/18 predniSONE [prednisone 20mg (RX)] 40 mg PO DAILY 5 Days tab 07/24/18 Medical Decision Making - Diagnostics EKG Interpretation: 12-lead EKG interpreted by me; official reading is in computer system. My interpretation is sinus rhythm rate 66 with nonspecific lateral T-wave flattening. Imaging Results: Imaging Impressions Chest X-Ray 07/24/18 15:05 Impression: 1. Peribronchial cuffing in the perihilar region bilaterally. Findings are nonspecific but can be seen with bronchitis, viral process, or reactive airways disease. 2. Prominence about the cristian bilaterally. The patient has had previous evidence for prominent nodes about each hilum. Imaging: I viewed and interpreted images myself Differential Diagnosis: Differential diagnosis considered for shortness of breath including but not limited to pulmonary infectious process, COPD, asthma, pulmonary embolus and congestive heart failure. - Data Points Laboratory Results: Laboratory Results 07/24/18 15:13 07/24/18 15:13 07/24/18 07/24/18 15:13 15:13 WBC 6.51 10^3/uL 10^3/uL (3.80-9.50) RBC 5.46 10^6/uL 10^6/uL (4.40-6.38) Hgb 16.4 g/dL g/dL (13.7-17.5) Hct 51.7 % H % (40.0-51.0) MCV 94.7 fL fL (81.5-99.8) MCH 30.0 pg pg (27.9-34.1) MCHC 31.7 g/dL L g/dL (32.4-36.7) RDW 13.8 % % (11.5-15.2) Plt Count 244 10^3/uL 10^3/uL (150-400) MPV 10.6 fL fL (8.7-11.7) Neut % (Auto) 54.1 % % (39.3-74.2) Lymph % (Auto) 32.9 % % (15.0-45.0) [place] % (Auto) 9.2 % % (4.5-13.0) Eos % (Auto) 3.2 % % (0.6-7.6) Baso % (Auto) 0.3 % % (0.3-1.7) Nucleat RBC Rel Count 0.0 % % (0.0-0.2) Absolute Neuts (auto) 3.52 10^3/uL 10^3/uL (1.70-6.50) Absolute Lymphs (auto) 2.14 10^3/uL 10^3/uL (1.00-3.00) Absolute Monos (auto) 0.60 10^3/uL 10^3/uL (0.30-0.80) Absolute Eos (auto) 0.21 10^3/uL 10^3/uL (0.03-0.40) Absolute Basos (auto) 0.02 10^3/uL 10^3/uL (0.02-0.10) Absolute Nucleated RBC 0.00 10^3/uL 10^3/uL (0-0.01) Immature Gran % 0.3 % % (0.0-1.1) Immature Gran # 0.02 10^3/uL 10^3/uL (0.00-0.10) Sodium 142 mEq/L mEq/L (135-145) Potassium 4.1 mEq/L mEq/L (3.5-5.2) Chloride 102 mEq/L mEq/L (97-110) Carbon Dioxide 33 mEq/l H mEq/l (22-31) Anion Gap 7 mEq/L mEq/L (6-14) BUN 25 mg/dL H mg/dL (7-23) Creatinine 1.2 mg/dL mg/dL (0.7-1.3) Estimated GFR 60 Glucose 100 mg/dL mg/dL (70-100) Calcium 9.4 mg/dL mg/dL (8.5-10.4) Medications Given: Discontinued Medications Albuterol (Proventil Neb) 3 ml IH EDNOW ONE Stop: 07/24/18 15:06 Last Admin: 07/24/18 15:34 Dose: 3 ml Albuterol/Ipratropium (Duoneb) 3 ml IH EDNOW ONE Stop: 07/24/18 15:06 Last Admin: 07/24/18 15:34 Dose: 3 ml Prednisone (Prednisone) 60 mg PO EDNOW ONE Stop: 07/24/18 15:06 Last Admin: 07/24/18 15:12 Dose: 60 mg Departure - Departure Disposition: Home, Routine, Self-Care Clinical Impression: Acute bronchitis Qualifiers: Bronchitis organism: unspecified organism Qualified Code(s): J20.9 - Acute bronchitis, unspecified Condition: Good Instructions: Acute Bronchitis (ED) Referrals: Audie Ferrara MD [Medical Doctor] - As per Instructions Prescriptions: Doxycycline Hyclate [Doxycycline] 100 mg PO BID #20 cap Doxycycline Hyclate [Doxycycline] 100 mg PO BID #20 cap Furosemide [Lasix 40 MG (*)] 40 mg PO DAILY #10 tab predniSONE [prednisone 20mg (RX)] 40 mg PO DAILY 5 Days tab
[2018-07-24] MEDS ORDERED: IPRATROPIUM/ALBUTEROL 3 ML DEYVIAL IH ONE (15:05)
[2018-07-24] MEDS ORDERED: predniSONE 20 MG TAB PO ONE (15:05)
[2018-07-24] MEDS ORDERED: ALBUTEROL 3 ML DEYVIAL IH ONE (15:05)
[2018-07-24 15:29] LABS: PLATELET COUNT 244 10^3/uL (150-400)
--- NOTE | 2018-07-24 15:38 | CPEKG ---
Test Reason : OPEN Blood Pressure : / mmHG Vent. Rate : 066 BPM Atrial Rate : 066 BPM P-R Int : 161 ms QRS Dur : 110 ms QT Int : 457 ms P-R-T Axes : 077 049 068 degrees QTc Int : 479 ms Sinus rhythm Nonspecific repol abnormality, lateral leads Confirmed by Rodolfo Brooks ([id number]) on 07/24/2018 3:37:23 PM Referred By: Confirmed By:Rodolfo Brooks
[2018-07-24] MEDS ORDERED: ALBUTEROL INH PREPACK MDI TAKEHOME ONE (15:54)
[2018-07-24 17:06] VITALS: BP 136/88
== END 2018-07-24 17:06 | disposition home or self-care (01) ==
DX: J20.9 Acute bronchitis, unspecified (principal); F17.200 Nicotine dependence, unspecified, uncomplicated; Z59.0 Homelessness
CPT/HCPCS: 71046; 93005; 99285; J7512; J7613

== ENCOUNTER 2018-11-04 16:41 | Emergency (ER) | payer OTHER, MEDICAID ==
[2018-11-04] MEDS ORDERED: predniSONE 20 MG TAB PO ONE (17:07)
[2018-11-04] MEDS ORDERED: IPRATROPIUM/ALBUTEROL 3 ML DEYVIAL IH ONE (17:07)
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
[2018-11-04] MEDS ORDERED: ALBUTEROL 3 ML DEYVIAL IH ONE (17:53)
[2018-11-04] MEDS ORDERED: DOXYCYCLINE HYCLATE 100 MG CAP/TAB PO ONE (18:06)
[2018-11-04 18:11] VITALS: BP 129/79
[2018-11-04 19:17] LABS: PLATELET COUNT 299 10^3/uL (150-400)
[2018-11-04] MEDS ORDERED: DOXYCYCLINE 100 MG PREPACK#2 BTL TAKEHOME ONE (19:44)
--- NOTE | 2018-11-04 21:24 | CPEKG ---
Test Reason : OPEN Blood Pressure : / mmHG Vent. Rate : 075 BPM Atrial Rate : 074 BPM P-R Int : 187 ms QRS Dur : 112 ms QT Int : 412 ms P-R-T Axes : 072 056 072 degrees QTc Int : 461 ms Sinus rhythm Left atrial enlargement baseline artifact Confirmed by Tori Alarcon ([id number]) on 11/04/2018 9:24:15 PM Referred By: Sneha German Confirmed By:Tori Alarcon
--- NOTE | 2018-11-04 22:46 | GHP ---
[f rep st] HISTORY AND PHYSICAL DATE OF ADMISSION: 11/04/2018 CHIEF COMPLAINT: Shortness of breath. HISTORY OF PRESENT ILLNESS: This is a 68-year-old man with a past medical history that includes COPD , CAD, atrial fibrillation, DVT/PE, presenting with shortness of breath. The patient notes that he h as been short of breath for several days or perhaps longer. He is agitated, somewhat paranoid and co mbative on exam. He presented with O2 sats of 81% on room air that improved somewhat post-nebulizer treatments, but remained in the mid 80s on room air. He does note that he continues to smoke. He st ates that he does remain compliant with his anticoagulation as if he does not he gets a clot immediat giuseppe. He denies any issues with new pain or swelling in his legs, though he states that his legs are always painful and swollen. He does acknowledge that he continues to drink heavily, but states he is not sure if he will quit and that he denies any current issues with withdrawal. PAST MEDICAL HISTORY: Includes: 1. CAD. 2. Chronic AFib. 3. Recurrent VTE. 4. Severe pulmonary hypertension. 5. Alcohol abuse and withdrawal. 6. CHF with an EF of 45%. 7. COPD. 8. Hypertension. PAST SURGICAL HISTORY: Not pertinent. SOCIAL HISTORY: The patient currently lives in his van. He currently smokes and drinks, is unable t o tell me details of this. Also, smokes marijuana. FAMILY HISTORY: Patient is adopted and does not know. REVIEW OF SYSTEMS: 10-point review of systems obtained and negative except as per HPI. PAST MEDICATIONS: 1. Lisinopril. 2. Lasix. 3. Flonase. 4. Carvedilol. 5. Eliquis. 6. Amiodarone. 7. Albuterol. ALLERGIES: No known drug allergies. PHYSICAL EXAM: VITAL SIGNS: BP 129/79, heart rate 65, respiratory rate 18. O2 sats are 81% on room air, 95% on 3 L. GENERAL APPEARANCE: This is a chronically ill-appearing man. He is awake and alannah rt. He is in no acute distress. EYES: Has a lid droop on the left. Otherwise, pupils equal and reactive. HEENT: Poor dentition. Moist mucous membranes. CARDIOVASCULAR: Distant, irregularly irregular. No murmurs, rubs, or hudson ps appreciated. PULMONARY: Decreased breath sounds throughout. No significant wheeze. ABDOMEN: S oft, nontender. EXTREMITIES: Bilateral lower extremity edema. SKIN: Hyperpigmentation in the bila teral lower extremities and varicose veins present. NEURO/PSYCH: The patient is oriented. He is ag itated and aggressive at times. CLINICAL DATA: 1. Labs reviewed, notable for: White blood cell count of 11.9. Creatinine 1.5. Glucose of 102. 2. Chest x-ray, personally reviewed and interpreted, shows nothing acute. No acute infiltrate or co nsolidation. 3. EKG, personally reviewed and interpreted, showing sinus rhythm, no ischemic changes. ASSESSMENT AND PLAN: This is a 68-year-old man with past medical history of chronic obstructive pulm onary disease, severe pulmonary hypertension, coronary artery disease, presenting with acute on chron ic hypoxic respiratory failure. 1. Acute on chronic hypoxic respiratory failure, presumed. Patient has a baseline O2 requirement, a lthough he does not use oxygen chronically. He does present in the low 80s on room air. Plan to adm it and treat for chronic obstructive pulmonary disease exacerbation as per next. 2. Chronic obstructive pulmonary disease exacerbation in the setting of likely viral infection. Res piratory pathogen panel will be obtained. He has been started on prednisone as well as DuoNeb, and h as had some improvement in his symptoms already. 3. Chronic congestive heart failure with both systolic and diastolic dysfunction with most recent EF of 45%. He does not appear to be acutely decompensated at this time. 4. Recurrent venous thromboembolism. The patient states he remains compliant on Eliquis, which will be continued while in-house. 5. Coronary artery disease without complaints of chest pain. EKG nonischemic. 6. Alcohol abuse. Without evidence of withdrawal at this time. Will be monitored closely. He has had severe withdrawal in the past. 7. Atrial fibrillation. Currently appears to be in sinus rhythm. He is rate controlled, and will c ontinue his Coreg and Eliquis. 8. Hypertension. Will continue lisinopril. Inpatient status. Suspect he will need greater than a 48-hour stay for evaluation and management of above given his multiple active issues and homelessness. Patient is new to my care. Old records reviewed and summarized as per History of Present Illness and Past Medical History. Care plan reviewed with the emergency room physician, including plans for colton atment of chronic obstructive pulmonary disease exacerbation. /[id number]/MODL
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
== END 2018-11-04 19:59 | disposition left against medical advice (07) ==
LOC: UNDOADMOB 18:43
DX: J44.1 Chronic obstructive pulmonary disease with (acute) exacerbation (principal); F17.210 Nicotine dependence, cigarettes, uncomplicated; I50.42 Chronic combined systolic (congestive) and diastolic (congestive) heart failure; I11.0 Hypertensive heart disease with heart failure; I25.10 Atherosclerotic heart disease of native coronary artery without angina pectoris; I25.2 Old myocardial infarction; I48.91 Unspecified atrial fibrillation; F10.10 Alcohol abuse, uncomplicated; Z79.01 Long term (current) use of anticoagulants; Z86.718 Personal history of other venous thrombosis and embolism
CPT/HCPCS: 71046; 93005; 99285; J7512; J7613

== ENCOUNTER 2018-11-30 00:50 | Emergency (ER) | payer OTHER, MEDICAID ==
--- NOTE | 2018-11-30 01:05 | EDPHY ---
H & P Time Seen by Provider: 11/30/18 00:51 HPI/ROS: CHIEF COMPLAINT: [ Can't get a full breath] HISTORY OF PRESENT ILLNESS: [This is a 60-year-old male with a complicated medical history including noncompliance, CHF, coronary disease, EF 45%, as well as COPD, pulmonary hypertension, and extensive right lower extremity DVT requiring thrombolysis this past April 2018. He was recently seen at [facility] on November 13. He had improved aeration following a DuoNeb as well as prednisone in the department. However he is persistently hypoxic with an O2 sat of 86-84 and thus was recommended admission. Ultimately after seeing the hospitalists he left AMA at that time. He was discharged on the inhaler, steroids, doxycycline. He believes he finish the doxycycline Tonight, he is unable to sleep as the difficulty breathing was keeping awake. He has a sense that he cannot get a full breath but does not have any pains in the chest or pleuritic discomfort. He is also notes that tonight he is not having a cough but the sense that he has have a trouble breathing. He notes no peripheral edema or calf pain. He has been using his Proventil inhaler every 30 -60 minutes without any persistent success. He does state that he is having some phlegm but does not know the color. He also is unable to explain to me what color the chronic phlegm that he does produce due to his underlying COPD. I have given him a package of tissues but ultimately he never did produce any phlegm for me to inspect. He has had no nausea vomiting diarrhea. No fevers or shaking chills or rigors.] REVIEW OF SYSTEMS: Constitutional: No fever, no chills. Eyes: No discharge ENT: No sore throat. Cardiovascular: See above Respiratory: See above Gastrointestinal: No Nausea, vomiting, abdominal pain or diarrhea Genitourinary: No hematuria or frequency. Musculoskeletal: No back pain. Skin: No rashes. Neurological: No headache. [A 10 system review of systems was performed and is negative except for the noted findings in the HPI.] Source: Patient Exam Limitations: No limitations - Personal History Tetanus Vaccine Date: within 10 years - Medical/Surgical History Hx Asthma: No Hx Chronic Respiratory Disease: Yes Hx Diabetes: No Hx Cardiac Disease: Yes Hx Renal Disease: No Hx Cirrhosis: No Hx Alcoholism: Yes Hx HIV/AIDS: No Hx Splenectomy or Spleen Trauma: No Other PMH: MD, PNA, Bronchitis, HTN, hernia repair, appendectomy, facial surgery , plastic surgery, COPD, fx ankles, scabies, CHF with EF 45%, CAD with occluded Circumflex, collapsed artery. DVT with thrombolysis this past Apr 2018, Pul HTN , Prominent Hilum in the past on CXR. Atrial Fib. - Social History Smoking Status: Heavy smoker Alcohol Use: Heavy (Evidently per his records of June, he had stopped drinking) Drug Use: None - Physical Exam Exam: General Appearance: Alert, no distress. Talked a sort, full sentences, no respiratory distress. Afebrile. Normal phonation. No respiratory distress. Eyes: Pupils equal and round no pallor or injection. No icterus ENT, Mouth: Mucous membranes moist. Pharynx without erythema or exudate. TM Clear. Neck: No adenopathy. Supple. No JVD. Trachea in midline. Respiratory: There are no retractions, lungs are with diminished air entry with some scant rales heard at the right base. Chest wall: Nontender to palpation. No crepitus. Cardiovascular: Regular rate and rhythm, without murmur Abdomen: Soft and nontender, no masses, bowel sounds normal. Femoral pulses equal. Neurological: Ox3. No motor weakness. Sensation intact. Gait nl. Skin: Warm and dry, no rashes. Musculoskeletal: No joint swelling. Extremities: No edema. Homans sign negative. No cords, nor any calf tenderness Psychiatric: Normal affect. Patient is oriented X 3. There is no agitation Constitutional: Initial Vital Signs Temperature (C) 36.3 C 11/30/18 01:06 Heart Rate 89 11/30/18 01:06 Respiratory Rate 16 11/30/18 01:06 Blood Pressure 149/95 H 11/30/18 01:06 O2 Sat (%) 94 11/30/18 01:06 O2 Delivery Mode Room Air Allergies/Adverse Reactions: Tetanus Vaccines and Toxoid Allergy (Intermediate, Verified 11/30/18 01:05) Other-Enter Comments Home Medications: Medication Instructions Recorded Albuterol [Proventil Inhaler HFA 1 - 2 puffs IH Q4H PRN 02/11/18 (*)] Fluticasone Propionate [Flonase 1 spray NS BID PRN 02/11/18 Allergy Relief] Lisinopril [Zestril 40 mg (*)] 40 mg PO DAILY 02/11/18 Carvedilol [Coreg (*)] 25 mg PO BIDMEAL tab 02/12/18 Amiodarone HCl [Pacerone (*)] 200 mg PO BID #30 tab 05/26/18 Apixaban [Eliquis] 5 mg PO BID #60 tab 05/26/18 Furosemide [Lasix 40 MG (*)] 40 mg PO BID 11/04/18 Doxycycline Monohydrate [Avidoxy] 100 mg PO BID #20 tablet 11/30/18 Ipratropium/Albuterol [Combivent 1 inh IH QID #1 mdi 11/30/18 Respimat Inhal [place](*)] predniSONE [Prednisone] 30 mg PO BID #30 tablet 11/30/18 Medical Decision Making ED Course/Re-evaluation: He recalls having a breathing treatment at [facility] 3 weeks ago and says that helped quite a bit. Thereby range for a DuoNeb treatment while here. I review with the patient the plans as follows: Chest x-ray, Lab work, DuoNeb. He agreed to the plan 01:50 - nursing staff notify me that at this point only once the chest x-ray and the breathing treatment. He has declined blood work and an EKG. I then met with the patient. Indeed he has seem to be continued to be hyperverbal and stating that he would not want to undergo any additional testing would not agree to hospitalization even if I found something wrong with his heart or lungs that would necessitate such. Thereby he has declined any testing for his heart such as an EKG or lab work or troponin or his lungs including blood tests. He reports feeling moderately better to even better than that after the DuoNeb treatment. Thereby will go ahead and discharge him against medical advice on a Combivent inhaler as well as steroids and doxycycline. I explained to him at that point in time that again I would not be able to tell if he did not be having some form of underlying heart failure or pneumonia or heart attack. He is aware of the limitations of my workup at this point in time and declines any further diagnostic testing. He was warned Differential Diagnosis: Differential diagnosis includes but is not limited to the following: ACS, myocardial infarction, pneumothorax, pleurisy, pulmonary embolus, CHF, Pneumonia, bronchitis, bronchospasm, Asthma, anxiety, muscle strain. - Data Points Medications Given: Discontinued Medications Albuterol/Ipratropium (Duoneb) 3 ml IH EDNOW ONE Stop: 11/30/18 01:15 Last Admin: 11/30/18 01:29 Dose: 3 ml Doxycycline Hyclate (Vibramycin 100 Mg Prepack#2) 1 btl TAKEHOME EDNOW ONE Stop: 11/30/18 02:32 Last Admin: 11/30/18 02:44 Dose: 1 btl Prednisone (Prednisone) 60 mg PO EDNOW ONE Stop: 11/30/18 02:31 Last Admin: 11/30/18 02:41 Dose: 60 mg Departure - Departure Disposition: Home, Routine, Self-Care Clinical Impression: Asthmatic bronchitis with acute exacerbation Qualifiers: Asthma severity: moderate Asthma persistence: persistent Qualified Code(s): J45.41 - Moderate persistent asthma with (acute) exacerbation Condition: Good Instructions: How to Use a Nebulizer (ED), Bronchospasm (ED) Additional Instructions: Return at any time if getting worse again - especially if you are running a fever See her regular family doctor in 1-2 days Start the new inhaler-Combivent Continue to take the Proventil inhaler as needed Use the spacer device to make these inhalers work more effectively Start the antibiotic, doxycycline Start the prednisone therapy Referrals: Patient,NotPresent [Unknown] - As per Instructions Prescriptions: Doxycycline Monohydrate [Avidoxy] 100 mg PO BID #20 tablet Ipratropium/Albuterol [Combivent Respimat Inhal [place](*)] 1 inh IH QID #1 mdi predniSONE [Prednisone] 30 mg PO BID #30 tablet
[2018-11-30 01:12] VITALS: BP 149/95
[2018-11-30] MEDS ORDERED: IPRATROPIUM/ALBUTEROL 3 ML DEYVIAL IH ONE (01:14)
[2018-11-30] MEDS ORDERED: predniSONE 20 MG TAB PO ONE (02:30)
[2018-11-30] MEDS ORDERED: DOXYCYCLINE 100 MG PREPACK#2 BTL TAKEHOME ONE (02:31)
== END 2018-11-30 02:45 | disposition left against medical advice (07) ==
LOC: CED 00:50
DX: J45.41 Moderate persistent asthma with (acute) exacerbation (principal); F17.200 Nicotine dependence, unspecified, uncomplicated; Z86.79 Personal history of other diseases of the circulatory system
CPT/HCPCS: 99284; J7512